=== PATIENT | female | born 1955 | race African-American/Black ===

== ENCOUNTER 2016-12-30 08:51 | Emergency (ER) | payer OTHER ==
[2016-12-30 09:00] VITALS: BP 138/93; BMI 41.1
--- NOTE | 2016-12-30 09:53 | DR.GENAD ---
HPI - PCP Primary Care Physician: GINETTE - HPI Comment HPI Comment: WORSE TODAY. NO DYSURIA OR FEVER. DENIES TRAUMA. - Complaint/Symptoms Chief Complaint Doctors Comments: LEFT FLANK AND LOWER BACK ON LEFT SIDE PAIN FOR 3 DAYS. Chief Complaint:: "MY BACK HURTS" Self Treatment fo Chief Complaint: GOODY POWDER - Nurses notes reviewed Nurses Notes Review: Yes - Source History Provided: Patient - Mode of Arrival Mode of Arrival: Ambulatory - Timing Onset of Chief Complaint: 12/27/16 Came on: Suddenly - Duration Duration: Constant Duration: Days - Severity Severity: Moderate PMH - PMH Past Medical History: Yes Past Medical History: Coronary Artery Disease, Diabetes, Hypertension Past Surgical History: Yes Surgical History: Angioplasty/Stents, - Family History History of Family Medical Conditions: Yes Family Medical History: Diabetes Mellitus, Coronary Artery Disease, Heart Failure, Hypertension - Social History Does patient currently use any type of tobacco product: No Have you used tobacco products in the last 12 months: No Type of Tobacco Use: None Does any household member use tobacco: No Alcohol Use: None Do you use any recreational Drugs:: No Lives With: Family Lives Where: Home - infectious screening In the last 2 months have you had wt loss of >10#?: NO Have you had fever, night sweats or hemotysis?: No Have you traveled outside the country in the last 6 months?: No ROS - Review of Systems Constitutional: No Symptoms Reported Eyes: No Symptoms Reported ENTM: No Symptoms Reported Respiratoy: No Symptoms Reported Cardiovascular: No Symptoms Reported Gastrointestinal/Abdominal: No Symptoms Reported Genitourinary: No Symptoms Reported Neurological: No Symptoms Reported Musculoskeletal: Back Pain, Back Integumentary: No Symptoms Reported Hematologic/Lymphatic: No Symptoms Reported Endocrine: No Symptoms Reported All Other Systems: Reviewed and Negative PE - Vital Signs Vitals: Temperature 97.7 F Pulse Rate 86 Respiratory Rate 20 Blood Pressure [Right Arm] 130/79 Blood Pressure [Left Arm] 134/63 Blood Pressure 138/93 O2 Sat by Pulse Oximetry 97 - General Limitations: No Limitations General Appearance: Alert - Head Head Exam: Normal Inspection - Eyes Eye exam: Normal Appearance - ENT ENT Exam: Normal External Ear Exam External Ear Exam: Normal External Inspection TM/Canal Exam: Bilateral Normal Nose Exam: Normal Nose Exam Mouth Exam: Normal Inspection Throat Exam: Normal Inspection - Neck Neck Exam: Trachea Midline - Chest Chest Inspection: Symmetric Chest Wall Rise - Respiratory Respiratory Exam: Normal Lung Sounds Bilat Respiratory Exam: Bilateral Clear to Auscultation - Cardiovascular Cardiovascular Exam: Regular Rate, Normal Rhythm, Normal Heart Sounds - Abdominal Exam Abdominal Exam: Normal Bowel Sounds, Soft. negative: Tenderness - Extremities Extremities Exam: Normal Inspection - Back Back Exam: (L) CVA Tenderness, Paraspinal Tenderness (LT SIDE OF LOWER BACK) - Neurologic Neurological Exam: Alert, Oriented X3 - Psychiatric Psychiatric Exam: Normal Affect, Normal Mood - Skin Skin Exam: Normal Color MDM - Differential Diagnosis Differential Diagnosis: LEFT FLANK PAIN, UTI, KIDNEY STONE Course - Treatment Treatment: SEE ORDERS. - Education/Counseling Education/Counseling: Patient, Education Educated On: Treatment, Diagnosis, Needs for Follow Up ROR - Labs Reviewed Laboratory Results Reviewed?: Yes Result Diagrams: 12/30/16 09:58 12/30/16 09:58 Laboratory: WBC 4.3 X10^3/uL (3.6-10.0) 12/30/16 09:58 RBC 4.78 X10^6/uL (3.5-5.4) 12/30/16 09:58 Hgb 12.7 g/dL (12.0-16.0) 12/30/16 09:58 Hct 38.5 % (36.0-47.0) 12/30/16 09:58 MCV 80.6 fL (80.0-100.0) 12/30/16 09:58 MCH 26.5 pg (27.0-34.0) L 12/30/16 09:58 MCHC 32.8 g/dL (33.0-35.0) L 12/30/16 09:58 RDW 14.7 % (11.6-16.5) 12/30/16 09:58 Plt Count 166 X10^3/uL (150.0-450.0) 12/30/16 09:58 MPV 9.7 fL (7.4-11.0) 12/30/16 09:58 Neut % 48.3 % (42.0-75.0) 12/30/16 09:58 Lymph % 42.1 % (21.0-51.0) 12/30/16 09:58 [place] % 7.8 % (0.0-13.0) 12/30/16 09:58 Eos % 1.1 % (0.9-2.9) 12/30/16 09:58 Baso % 0.7 % (0.2-1.0) 12/30/16 09:58 Neut # 2.1 x10^3/uL (2.2-4.8) L 12/30/16 09:58 Lymph # 1.8 X10^3/uL (1.3-2.9) 12/30/16 09:58 [place] # 0.3 x10^3/uL (0.3-0.8) 12/30/16 09:58 Eos # 0.0 x10^3/uL (0.0-0.2) 12/30/16 09:58 Baso # 0.0 X10^3/uL (0.0-0.1) 12/30/16 09:58 Absolute Nucleated RBC 0.2 /100WBC 12/30/16 09:58 Sodium 137 mmol/L (136-145) 12/30/16 09:58 Corrected Sodium 139 mmol/L (136-145) 12/30/16 09:58 Potassium 4.4 mmol/L (3.5-5.1) 12/30/16 09:58 Chloride 103 mmol/L (98-107) 12/30/16 09:58 Carbon Dioxide 28.1 mmol/L (21-32) 12/30/16 09:58 BUN 19 mg/dL (7-18) H 12/30/16 09:58 Creatinine 1.41 mg/dL (0.55-1.02) H 12/30/16 09:58 Est GFR (MDRD) Af Amer 49 (>60) L 12/30/16 09:58 Est GFR (MDRD) Non-Af 41 (>60) L 12/30/16 09:58 Glucose 180 mg/dL (65-99) H 12/30/16 09:58 Calcium 9.9 mg/dL (8.5-10.1) 12/30/16 09:58 Corrected Calcium TNP 12/30/16 09:58 Total Bilirubin 0.50 mg/dL (0.2-1.0) 12/30/16 09:58 AST 14 Units/L (15-37) L 12/30/16 09:58 ALT 21 Units/L (12-78) 12/30/16 09:58 Alkaline Phosphatase 48 Units/L (46-116) 12/30/16 09:58 Total Protein 8.2 g/dL (6.4-8.2) 12/30/16 09:58 Albumin 3.7 g/dL (3.4-5.0) 12/30/16 09:58 Globulin 4.5 g/dL (2.5-4.5) 12/30/16 09:58 Albumin/Globulin Ratio 0.8 Ratio (1.1-2.1) L 12/30/16 09:58 Specimen Type Clean catch urine 12/30/16 11:00 Urine Color Yellow (YELLOW) 12/30/16 11:00 Urine Appearance Hazy (CLEAR) 12/30/16 11:00 Urine pH 5.0 (5.0 - 8.0) 12/30/16 11:00 Ur Specific [place] 1.020 (1.000-1.030) 12/30/16 11:00 Urine Protein 1+ (NEGATIVE) 12/30/16 11:00 Urine Glucose (UA) Negative (NEGATIVE) 12/30/16 11:00 Urine Ketones Negative (NEGATIVE) 12/30/16 11:00 Urine Occult Blood 1+ (NEGATIVE) 12/30/16 11:00 Urine Nitrite Negative (NEGATIVE) 12/30/16 11:00 Urine Bilirubin Negative (NEGATIVE) 12/30/16 11:00 Urine Urobilinogen Normal (NORMAL) 12/30/16 11:00 Ur Leukocyte Esterase 2+ (NEGATIVE) 12/30/16 11:00 Urine RBC 0-3 /HPF (NEGATIVE) 12/30/16 11:00 Urine WBC 4-8 /HPF (NEGATIVE) 12/30/16 11:00 Ur Squamous Epith Cells Numerous /HPF (NEGATIVE) 12/30/16 11:00 Urine Bacteria Trace /HPF (NEGATIVE) 12/30/16 11:00 Hyaline Casts Many /LPF (NEGATIVE) 12/30/16 11:00 Ur Culture Indicated? No/not indicated 12/30/16 11:00 - XRAY XRAY Interpreted by: Radiologist XRAY Findings: REPORT DISCUSS WITH PATIENT. - Diagnosis Discharge Problem: Left flank pain, Kidney stones - Discharge Plan Disposition: 01 HOME, SELF-CARE Condition: Good Prescriptions: Cyclobenzaprine HCl [FLEXERIL 10 MG *] 10 mg PO TID 15 Days #60 tab Ibuprofen [MOTRIN TAB 600 MG *] 600 mg PO BID PRN 10 Days #60 tab PRN Reason: Pain/Inflammation - Follow ups/Referrals Follow ups/Referrals: NFD,None [Primary Care Provider] - 3 days - Instructions Instructions: Kidney Stones, [id number], Flank Pain, [id number] Additional Instructions: RETURN TO ED IF WORSE.
[2016-12-30 10:10] LABS: BASOPHILS % (AUTO) 0.7 % (0.2-1.0); EOSINOPHILS % (AUTO) 1.1 % (0.9-2.9); HEMATOCRIT 38.5 % (36.0-47.0); HEMOGLOBIN 12.7 g/dL (12.0-16.0); LYMPHOCYTES # (AUTO) 1.8 X10^3/uL (1.3-2.9); LYMPHOCYTES % (AUTO) 42.1 % (21.0-51.0); MEAN CORPUSCULAR HEMOGLOBIN 26.5 pg (27.0-34.0); MEAN CORPUSCULAR HGB CONC 32.8 g/dL (33.0-35.0); MEAN CORPUSCULAR VOLUME 80.6 fL (80.0-100.0); MEAN PLATELET VOLUME 9.7 fL (7.4-11.0); MONOCYTES # (AUTO) 0.3 x10^3/uL (0.3-0.8); MONOCYTES % (AUTO) 7.8 % (0.0-13.0); NEUTROPHILS # (AUTO) 2.1 x10^3/uL (2.2-4.8); NEUTROPHILS % (AUTO) 48.3 % (42.0-75.0); PLATELET COUNT 166 X10^3/uL (150.0-450.0); RED BLOOD COUNT 4.78 X10^6/uL (3.5-5.4); RED CELL DISTRIBUTION WIDTH 14.7 % (11.6-16.5); WHITE BLOOD COUNT 4.3 X10^3/uL (3.6-10.0)
[2016-12-30 10:18] LABS: ALANINE AMINOTRANSFERASE 21 Units/L (12-78); ALBUMIN 3.7 g/dL (3.4-5.0); ALKALINE PHOSPHATASE 48 Units/L (46-116); ASPARTATE AMINO TRANSFERASE 14 Units/L (15-37); BLOOD UREA NITROGEN 19 mg/dL (7-18); CALCIUM 9.9 mg/dL (8.5-10.1); CARBON DIOXIDE 28.1 mmol/L (21-32); CHLORIDE 103 mmol/L (98-107); COR NA(FOR HYPERGLY) 139 mmol/L (136-145); CREATININE 1.41 mg/dL (0.55-1.02); SODIUM 137 mmol/L (136-145); TOTAL PROTEIN 8.2 g/dL (6.4-8.2); eGFR BLACK RACES 49 (>60); eGFR NON BLACK RACES 41 (>60)
--- NOTE | 2016-12-30 10:52 | CT ---
HISTORY: Left flank pain for 3 days Study: CT abdomen and pelvis without contrast Comparison: None Technique: Multiple axial images of the abdomen and pelvis were obtained from the lung bases to the pubic symphy sis without the administration of IV contrast. Sagittal and coronal reformations were provided. Findings: The visualized portions of the lung bases are unremarkable. There are multiple bilateral small renal calculi. There is no hydronephrosis or renal mass. The liver and spleen and pancreas and adrenal gla nds are unremarkable.. The gallbladder is unremarkable in its CT appearance. No significant mesenter ic lymphadenopathy or stranding can be observed. No free fluid or free air is seen within the abdome n. The appendix is normal. The uterus is normal in size without mass. There is no adnexal mass. No b owel wall thickening or bowel dilatation is present. The colon is unremarkable. Specifically, there is no diverticulosis noted within the sigmoid colon. The urinary bladder is grossly unremarkable. T he bony structures are grossly intact. IMPRESSION: 1. Multiple bilateral small renal calculi without hydronephrosis. No definite acute disease demonstr ated. Reported By:
[2016-12-30 11:08] LABS: BILIRUBIN,URINE NEGATIVE (NEGATIVE); BLOOD/HEMOGLOBIN,URINE 1+ (NEGATIVE); GLUCOSE, URINE NEGATIVE (NEGATIVE); KETONES,URINE NEGATIVE (NEGATIVE); LEUKOCYTE ESTERASE ,URINE 2+ (NEGATIVE); NITRITES,URINE NEGATIVE (NEGATIVE); PROTEIN,URINE 1+ (NEGATIVE); UROBILINOGEN,URINE NORMAL (NORMAL)
[2016-12-30 11:22] LABS: APPEARANCE,URINE HAZY (CLEAR); BACTERIA,URINE TRACE /HPF (NEGATIVE); COLOR,URINE YELLOW (YELLOW); HYALINE CASTS, URINE MANY /LPF (NEGATIVE); RBC,URINE 0-3 /HPF (NEGATIVE); SQUAMOUS EPITHELIAL CELL,UR NUMEROUS /HPF (NEGATIVE)
== END 2016-12-30 11:25 | disposition home or self-care (01) ==
LOC: ER 09:09
DX: N20.0 Calculus of kidney (principal); R10.84 Generalized abdominal pain
CPT/HCPCS: 36415; 74176; 80053; 81001; 85025; 99283

== ENCOUNTER 2017-08-08 12:19 | Observation (INO) | payer OTHER ==
[2017-08-08] MEDS ORDERED: DUONEB 0.5 MG/3 MG NEB ONE ×2 (13:54→18:00)
[2017-08-08] MEDS ORDERED: LASIX IVP STA (13:55)
[2017-08-08] MEDS ORDERED: LASIX ONE (13:59)
--- NOTE | 2017-08-08 13:59 | DR.GENAD ---
HPI - PCP Primary Care Physician: nfd - Complaint/Symptoms Chief Complaint Doctors Comments: Patient is complaining of fullness in her chest like "pressure" for the ast four days getting progressively worst. States she went to [place] yesterday and had episode hot cold spells with cough and SOB with problems breathing and thought she was going to pass out when she was taking a shower. she denies tobacco use but states she stopped drinking about a month ag. States she has had cardiac stents about 5-6 years ago and had penumonia Feb 2017. States she has had episode wheezing but denies any chest trauma. states she has been having swelling of her legs and is taking lasix 20mg twice daily. Chief Complaint:: "chest congestion for a week now, not able to cough anything up" - Nurses notes reviewed Nurses Notes Review: Yes - Source History Provided: Patient - Mode of Arrival Mode of Arrival: Ambulatory - Timing Onset of Chief Complaint: 08/01/17 Came on: Gradually - Duration Duration: Constant How lon Duration: Days - Location Location: xiphoid pressure - Severity Severity: Moderate - Modifying Factors Worsens:: nothing Improves:: nothing PMH - PMH Past Medical History: Yes Past Medical History: Coronary Artery Disease, Diabetes, Hypertension Past Surgical History: Yes Surgical History: Angioplasty/Stents, - Family History History of Family Medical Conditions: Yes Family Medical History: Diabetes Mellitus, Coronary Artery Disease, Heart Failure, Hypertension - Social History Does patient currently use any type of tobacco product: No Have you used tobacco products in the last 12 months: No Type of Tobacco Use: None Does any household member use tobacco: No Alcohol Use: None Do you use any recreational Drugs:: No Lives With: Family Lives Where: Home - infectious screening In the last 2 months have you had wt loss of >10#?: NO Have you had fever, night sweats or hemotysis?: No Have you traveled outside the country in the last 6 months?: No Isolation: Standard ROS - Review of Systems Constitutional: No Symptoms Reported. negative: See HPI, Chills, Diaphoresis, Fever, Malaise, Weakness, Irritable, Fatigue, Loss of Appetite, Other Eyes: No Symptoms Reported. negative: See HPI, Eye Pain, Blurred Vision, Tearing, Discharge, Photophobia, Diplopia, Other ENTM: No Symptoms Reported. negative: See HPI, Ear Pain, Ear Discharge, Pulling on Ears, Hearing Loss, Nose Pain, Nose Discharge, Epistaxis, Nose Congestion, Mouth Pain, Mouth Swelling, Loose Teeth, Drooling, Throat Pain, Throat Swelling, Ear Foreign Body Respiratoy: No Symptoms Reported, Non-Productive Cough, Short of Breath, Wheezing. negative: See HPI, Productive Cough, Moist Cough, Dry Cough, Hacking Cough, Barking Cough, Brassy Cough, Orthopnea, Stridor, Hemoptysis, Other Cardiovascular: No Symptoms Reported, Chest Pain, Edema. negative: See HPI, Palpitations, Syncope, Cyanosis, Skin Mottling, Other Gastrointestinal/Abdominal: No Symptoms Reported. negative: See HPI, Abdominal Pain, Constipation, Diarrhea, Nausea, Vomiting, Food Intolerance, Other Genitourinary: No Symptoms Reported Neurological: No Symptoms Reported Musculoskeletal: No Symptoms Reported Integumentary: No Symptoms Reported Hematologic/Lymphatic: No Symptoms Reported Endocrine: No Symptoms Reported Psychiatric: No Symptoms Reported PE - Vital Signs Vitals: Temperature 97.7 F Pulse Rate 90 Respiratory Rate 18 Blood Pressure [Right Arm] 130/79 Blood Pressure [Left Arm] 134/63 Blood Pressure 148/90 O2 Sat by Pulse Oximetry 98 - General Limitations: No Limitations General Appearance: Alert, In Distress (moderate), Obese - Head Head Exam: Normal Inspection, Atraumatic, Normocephalic - Eyes Eye exam: Normal Appearance, PERRL, EOMI. negative: Scleral Icterus, Conjunctival Injection, Nystagmus, Miosis, Mydrasis, Periorbital Swelling, Periorbital Tenderness, Other - ENT ENT Exam: Normal Exam, Normal Oropharynx, Normal External Ear Exam, Mucous Membranes Moist, TM's Normal Bilaterally External Ear Exam: Normal External Inspection TM/Canal Exam: Bilateral Normal Nose Exam: Normal Nose Exam Mouth Exam: Normal Inspection Throat Exam: Normal Inspection. negative: Tonsillar Erythema, Tonsillomegaly, Tonsillar Exudate, R Peritonsillar Mass, L Peritonsillar Mass, Muffled Voice, Other - Neck Neck Exam: Normal Inspection, Full ROM, Trachea Midline. negative: Tenderness, Meningismus, Lymphadenopathy, Thyromegaly, Other - Chest Chest Inspection: Normal Inspection, Symmetric Chest Wall Rise - Respiratory Respiratory Exam: Normal Lung Sounds Bilat Respiratory Exam: Bilateral Wheezing, Bilateral Rhonchi, Bilateral Decreased Breath Sounds, Left Rales - Cardiovascular Cardiovascular Exam: Regular Rate, Normal Rhythm, Normal Heart Sounds, Systolic Murmur - Abdominal Exam Abdominal Exam: Normal Inspection, Normal Bowel Sounds, Soft. negative: Distention, Tenderness, Guarding, Rebound, Rigidity, Dimnished Bowel Sounds, Hyperactive Bowel Sounds, Hypoactive Bowel Sounds, Organomegaly, Trauma, Incision, Ascites, Mass, Bruit, Pulsatile Mass, Hernia, Other Abdominal Tenderness: negative: RUQ, RLQ, LUQ, LLQ, Epigastrium, Suprapubic, Diffuse, Mild, Moderate, Severe, Other - Extremities Extremities Exam: Normal Inspection, Full ROM, Normal Capillary Refill, Edema. negative: Tenderness, Joint Swelling, Calf Tenderness, Other - Back Back Exam: Normal Inspection, Full ROM. negative: Tenderness, (R) CVA Tenderness, (L) CVA Tenderness, Muscle Spasm, Paraspinal Tenderness, Vertebral Tenderness, Rashes, (R) Sciatic Notch Tenderness, (L) Sciatic Notch Tendern, (R ) Straight Leg Raise, (L) Straight Leg Raise, Other - Neurologic Neurological Exam: Alert, Oriented X3, CN II-XII Intact, Reflexes Normal. negative: Normal Gait (gait not tested) - Psychiatric Psychiatric Exam: Normal Affect, Normal Mood. negative: Depressed, Agitated, Anxious, Flat Affect, Manic, Homicidal Ideation, Suicidal Ideation, Other - Skin Skin Exam: Warm, Dry, Intact, Normal Color Course - Reevaluation 1st: Improved - Consultation Called: 16:02 Call Returned: 16:02 (Dr. Walter to admit) - Education/Counseling Education/Counseling: Patient, Family Educated On: Treatment, Diagnosis, Needs for Follow Up ROR - Labs Reviewed Laboratory Results Reviewed?: Yes (all labs and x-ray results reviewed and discussed with patient) Result Diagrams: 08/08/17 14:05 08/08/17 14:05 Laboratory: WBC 4.3 X10^3/uL (3.6-10.0) 08/08/17 14:05 RBC 4.82 X10^6/uL (3.5-5.4) 08/08/17 14:05 Hgb 12.3 g/dL (12.0-16.0) 08/08/17 14:05 Hct 37.9 % (36.0-47.0) 08/08/17 14:05 MCV 78.6 fL (80.0-100.0) L 08/08/17 14:05 MCH 25.6 pg (27.0-34.0) L 08/08/17 14:05 MCHC 32.6 g/dL (33.0-35.0) L 08/08/17 14:05 RDW 15.0 % (11.6-16.5) 08/08/17 14:05 Plt Count 159 X10^3/uL (150.0-450.0) 08/08/17 14:05 Plt Count Comment Adequate (ADEQUATE) 08/08/17 14:05 MPV 10.6 fL (7.4-11.0) 08/08/17 14:05 Neut % (Auto) 50.5 % (42.0-75.0) 08/08/17 14:05 Lymph % (Auto) 40.8 % (21.0-51.0) 08/08/17 14:05 [place] % (Auto) 7.2 % (0.0-13.0) 08/08/17 14:05 Eos % (Auto) 1.0 % (0.9-2.9) 08/08/17 14:05 Baso % (Auto) 0.5 % (0.2-1.0) 08/08/17 14:05 Neut # (Auto) 2.2 x10^3/uL (2.2-4.8) 08/08/17 14:05 Lymph # (Auto) 1.8 X10^3/uL (1.3-2.9) 08/08/17 14:05 [place] # (Auto) 0.3 x10^3/uL (0.3-0.8) 08/08/17 14:05 Eos # (Auto) 0.0 x10^3/uL (0.0-0.2) 08/08/17 14:05 Baso # (Auto) 0.0 X10^3/uL (0.0-0.1) 08/08/17 14:05 Absolute Nucleated RBC 0.0 /100WBC 08/08/17 14:05 Plt Morphology Comment Normal (NORMAL) 08/08/17 14:05 RBC Morphology Abnormal (NORMAL) A 08/08/17 14:05 Hypochromasia Slight A 08/08/17 14:05 Microcytosis Slight A 08/08/17 14:05 INR Target Range - 08/08/17 14:05 INR 1.03 (0.8-1.3) 08/08/17 14:05 APTT 27.4 SECONDS (22.9-36.5) 08/08/17 14:05 PTT Comment - 08/08/17 14:05 D-Dimer 396 ng/mL (0-400) 08/08/17 14:05 Sodium 139 mmol/L (136-145) 08/08/17 14:05 Corrected Sodium 140 mmol/L (136-145) 08/08/17 14:05 Potassium 4.5 mmol/L (3.5-5.1) 08/08/17 14:05 Chloride 103 mmol/L (98-107) 08/08/17 14:05 Carbon Dioxide 25.6 mmol/L (21-32) 08/08/17 14:05 BUN 19 mg/dL (7-18) H 08/08/17 14:05 Creatinine 1.14 mg/dL (0.55-1.02) H 08/08/17 14:05 Est GFR (MDRD) Af Amer > 60 (>60) 08/08/17 14:05 Est GFR (MDRD) Non-Af 52 (>60) L 08/08/17 14:05 Glucose 162 mg/dL (65-99) H 08/08/17 14:05 Calcium 9.0 mg/dL (8.5-10.1) 08/08/17 14:05 Corrected Calcium TNP 08/08/17 14:05 Magnesium 2.1 mg/dL (1.7-2.9) 08/08/17 14:05 Total Bilirubin 1.00 mg/dL (0.2-1.0) 08/08/17 14:05 AST 22 Units/L (15-37) 08/08/17 14:05 ALT 36 Units/L (12-78) 08/08/17 14:05 Alkaline Phosphatase 58 Units/L (46-116) 08/08/17 14:05 Creatine Kinase 36 Units/L (26-192) 08/08/17 14:05 CK-MB (CK-2) < 1.0 ng/mL (0-4.0) 08/08/17 14:05 CK/CKMB % Calc 2.8 % (<4) 08/08/17 14:05 Troponin I < 0.02 ng/mL (0-1.5) 08/08/17 14:05 B-Natriuretic Peptide 496 pg/mL (0-79) H 08/08/17 14:05 Total Protein 8.4 g/dL (6.4-8.2) H 08/08/17 14:05 Albumin 3.9 g/dL (3.4-5.0) 08/08/17 14:05 Globulin 4.5 g/dL (2.5-4.5) 08/08/17 14:05 Albumin/Globulin Ratio 0.9 Ratio (1.1-2.1) L 08/08/17 14:05 Specimen Type Random urine 08/08/17 15:26 Urine Color Yellow (YELLOW) 08/08/17 15:26 Urine Appearance Clear (CLEAR) 08/08/17 15:26 Urine pH 6.0 (5.0 - 8.0) 08/08/17 15:26 Ur Specific [place] 1.010 (1.000-1.030) 08/08/17 15:26 Urine Protein Negative (NEGATIVE) 08/08/17 15:26 Urine Glucose (UA) Negative (NEGATIVE) 08/08/17 15:26 Urine Ketones Negative (NEGATIVE) 08/08/17 15:26 Urine Occult Blood Negative (NEGATIVE) 08/08/17 15:26 Urine Nitrite Negative (NEGATIVE) 08/08/17 15:26 Urine Bilirubin Negative (NEGATIVE) 08/08/17 15:26 Urine Urobilinogen Normal (NORMAL) 08/08/17 15:26 Ur Leukocyte Esterase Negative (NEGATIVE) 08/08/17 15:26 - XRAY XRAY Interpreted by: Radiologist (CXR: Massive cardiomegaly with moderate pulmonary edema and trace bilateral effusions) - EKG Rate: 99 [place]: Normal Rhythm: NSR Block: None Hypertrophy: None ST: Normal, Nonsp - Diagnosis Discharge Problem: Chest pain, rule out acute myocardial infarction, Congestive heart failure, Cardiomegaly, Hyperglycemia, Diabetes mellitus - Discharge Plan Disposition: ADMITTED INPATIENT Condition: Stable - Follow ups/Referrals Follow ups/Referrals: NFD,None [Primary Care Provider] - 3 days - Instructions
[2017-08-08 14:15] LABS: BASOPHILS % (AUTO) 0.5 % (0.2-1.0); HEMATOCRIT 37.9 % (36.0-47.0); HEMOGLOBIN 12.3 g/dL (12.0-16.0); LYMPHOCYTES # (AUTO) 1.8 X10^3/uL (1.3-2.9); LYMPHOCYTES % (AUTO) 40.8 % (21.0-51.0); MEAN CORPUSCULAR HEMOGLOBIN 25.6 pg (27.0-34.0); MEAN CORPUSCULAR HGB CONC 32.6 g/dL (33.0-35.0); MEAN CORPUSCULAR VOLUME 78.6 fL (80.0-100.0); MEAN PLATELET VOLUME 10.6 fL (7.4-11.0); MONOCYTES # (AUTO) 0.3 x10^3/uL (0.3-0.8); MONOCYTES % (AUTO) 7.2 % (0.0-13.0); NEUTROPHILS # (AUTO) 2.2 x10^3/uL (2.2-4.8); NEUTROPHILS % (AUTO) 50.5 % (42.0-75.0); PLATELET COUNT 159 X10^3/uL (150.0-450.0); RED BLOOD COUNT 4.82 X10^6/uL (3.5-5.4); WHITE BLOOD COUNT 4.3 X10^3/uL (3.6-10.0)
[2017-08-08 14:22] LABS: HYPOCHROMASIA SLIGHT; PLATELET MORPHOLOGY COMMENT NORMAL (NORMAL)
[2017-08-08 14:23] LABS: MICROCYTOSIS SLIGHT
--- NOTE | 2017-08-08 14:32 | RAD ---
HISTORY: 62-year-old female with chest pressure for 4 days. Study: Frontal view of the chest. Comparison: Chest radiographs 11/18/2016 Findings: The trachea is midline. The cardiac silhouette is massively enlarged and stable with moderate pulmon attila edema and trace effusions without pneumothorax. Soft tissues are unremarkable. Osseous structur es are unremarkable. IMPRESSION: 1. Massive cardiomegaly with moderate pulmonary edema and trace bilateral effusions. Reported By:
[2017-08-08 14:33] LABS: BLOOD UREA NITROGEN 19 mg/dL (7-18); CARBON DIOXIDE 25.6 mmol/L (21-32); CHLORIDE 103 mmol/L (98-107); COR NA(FOR HYPERGLY) 140 mmol/L (136-145); CREATININE 1.14 mg/dL (0.55-1.02); SODIUM 139 mmol/L (136-145); TROPONIN I < 0.02 ng/mL (0-1.5); eGFR BLACK RACES > 60 (>60); eGFR NON BLACK RACES 52 (>60)
[2017-08-08 14:37] LABS: ALANINE AMINOTRANSFERASE 36 Units/L (12-78); ALBUMIN 3.9 g/dL (3.4-5.0); ALKALINE PHOSPHATASE 58 Units/L (46-116); ASPARTATE AMINO TRANSFERASE 22 Units/L (15-37); CREATINE KINASE 36 Units/L (26-192); CREATINE KINASE MB < 1.0 ng/mL (0-4.0); MAGNESIUM 2.1 mg/dL (1.7-2.9); TOTAL PROTEIN 8.4 g/dL (6.4-8.2)
[2017-08-08 14:39] LABS: CKMB % 2.8 % (<4)
[2017-08-08 14:49] LABS: B-TYPE NATRIURETIC PEPTIDE 496 pg/mL (0-79)
[2017-08-08 15:33] LABS: BILIRUBIN,URINE NEGATIVE (NEGATIVE); BLOOD/HEMOGLOBIN,URINE NEGATIVE (NEGATIVE); GLUCOSE, URINE NEGATIVE (NEGATIVE); KETONES,URINE NEGATIVE (NEGATIVE); LEUKOCYTE ESTERASE ,URINE NEGATIVE (NEGATIVE); NITRITES,URINE NEGATIVE (NEGATIVE); PROTEIN,URINE NEGATIVE (NEGATIVE); UROBILINOGEN,URINE NORMAL (NORMAL)
[2017-08-08 15:35] LABS: APPEARANCE,URINE CLEAR (CLEAR); COLOR,URINE YELLOW (YELLOW)
[2017-08-08 17:58] VITALS: BMI 39.6
[2017-08-08] MEDS: HumuLIN R SC PRN (21:30)
[2017-08-08 23:15] LABS: CKMB % 2.9 % (<4); CREATINE KINASE 35 Units/L (26-192); CREATINE KINASE MB < 1.0 ng/mL (0-4.0); TROPONIN I < 0.02 ng/mL (0-1.5)
[2017-08-09 05:02] LABS: BASOPHILS # (AUTO) 0.1 X10^3/uL (0.0-0.1); BASOPHILS % (AUTO) 1.5 % (0.2-1.0); EOSINOPHILS # (AUTO) 0.1 x10^3/uL (0.0-0.2); EOSINOPHILS % (AUTO) 1.5 % (0.9-2.9); HEMATOCRIT 34.5 % (36.0-47.0); HEMOGLOBIN 11.1 g/dL (12.0-16.0); LYMPHOCYTES # (AUTO) 1.8 X10^3/uL (1.3-2.9); LYMPHOCYTES % (AUTO) 45.3 % (21.0-51.0); MEAN CORPUSCULAR HEMOGLOBIN 25.3 pg (27.0-34.0); MEAN CORPUSCULAR HGB CONC 32.3 g/dL (33.0-35.0); MEAN CORPUSCULAR VOLUME 78.5 fL (80.0-100.0); MEAN PLATELET VOLUME 10.3 fL (7.4-11.0); MONOCYTES # (AUTO) 0.3 x10^3/uL (0.3-0.8); MONOCYTES % (AUTO) 8.4 % (0.0-13.0); NEUTROPHILS # (AUTO) 1.8 x10^3/uL (2.2-4.8); NEUTROPHILS % (AUTO) 43.3 % (42.0-75.0); PLATELET COUNT 125 X10^3/uL (150.0-450.0); RED BLOOD COUNT 4.39 X10^6/uL (3.5-5.4); RED CELL DISTRIBUTION WIDTH 15.2 % (11.6-16.5)
[2017-08-09 05:10] LABS: ALANINE AMINOTRANSFERASE 29 Units/L (12-78); ALBUMIN 3.4 g/dL (3.4-5.0); ALKALINE PHOSPHATASE 48 Units/L (46-116); ASPARTATE AMINO TRANSFERASE 17 Units/L (15-37); BLOOD UREA NITROGEN 21 mg/dL (7-18); CARBON DIOXIDE 27.7 mmol/L (21-32); CHLORIDE 105 mmol/L (98-107); COR NA(FOR HYPERGLY) 142 mmol/L (136-145); CREATININE 1.25 mg/dL (0.55-1.02); SODIUM 141 mmol/L (136-145); TOTAL PROTEIN 7.3 g/dL (6.4-8.2); eGFR BLACK RACES 56 (>60); eGFR NON BLACK RACES 46 (>60)
[2017-08-09 05:11] LABS: CHOL/HDL RATIO 8.6 (0.0-5.0); CHOLESTEROL 240 mg/dL (0-200); CKMB % 3.2 % (<4); CREATINE KINASE 31 Units/L (26-192); CREATINE KINASE MB < 1.0 ng/mL (0-4.0); HDL CHOLESTEROL 28 mg/dL (40-60); TRIGLYCERIDES 160 mg/dL (0-150); TROPONIN I 0.02 ng/mL (0-1.5)
[2017-08-09 05:29] LABS: PLATELET MORPHOLOGY COMMENT NORMAL (NORMAL)
[2017-08-09 05:31] LABS: HYPOCHROMASIA SLIGHT; MICROCYTOSIS SLIGHT
--- NOTE | 2017-08-09 08:44 | RAD ---
Examination: Portable AP chest History: SOB Comparison 08/08/2017 Findings: Continued cardiomegaly with persistent but improving pulmonary vascular distention and inte rstitial edema. There is no evidence for complicating pneumothorax. Impression: Interval improvement in CHF with residual cardiomegaly and pulmonary vascular distention. Reported By:
[2017-08-09] MEDS: LOVENOX INJ 40 MG SYR SC SCH (09:44)
[2017-08-09] MEDS: LASIX IVP SCH ×2 (12:00→20:31)
[2017-08-09] MEDS ORDERED: PATIENT'S HOME MEDICATION (Potassium Chloride [Klor-Con 10] 10 MEQ) PO SCH (21:00)
[2017-08-09] MEDS: MICRO K EXTEN CAP 10 MEQ PO SCH (21:16)
[2017-08-09] MEDS: LIPITOR TAB 40 MG PO SCH (21:16)
[2017-08-09] MEDS: ASPIRIN EC 81 MG PO SCH (21:16)
[2017-08-09] MEDS: COREG TAB 6.25 MG PO SCH (21:16)
[2017-08-09] MEDS ORDERED: BENADRYL INJ 50 MG VIAL IVP ONE (21:52)
--- NOTE | 2017-08-10 00:03 | DR.H&P ---
H&P - History & Physical for Day of: H&P Date: 08/08/17 - Chief Complaint Chief Complaint: CONGESTION, SHORT OF BREATH - Allergies Allergies/Adverse Reactions: Allergies Allergy/AdvReac Type Severity Reaction Status Date / Time No Known Drug Allergies Allergy Unverified 11/18/16 16:49 - History of Present Illness History of Present Illness: IS A 62 YEAR OLD BLACK FEMALE WHO PRESENTED TO THE EMERGENCY DEPARTMENT WITH COMPLAINTS OF CHEST CONGESTION AND SHORNTESS OF BREATH. PATIENT REPORTS THAT SYMPTOMS HAVE PROGRESSIVELY WORSENED OVER THE PAST FOUR DAYS. COUGH IS NON-PRODUCTIVE, SHE DENIES TOBACCO USAGE, BUT REPORTS THAT SHE RECENTLY STOPPED DRINKING ABOUT A MONTH AGO. SHE ADMITS TO CARDIAC STENTS APPROXIMATELY 5-6 YEARS AGO. PATIENT ALSO REPORTS SWELLING TO BILATERAL LOWER EXTREMITIES. MEDICAL HISTORY INCLUDES CAD, CHF, CARDIOMYOPATHY, SC, ANGINA, HYPERLIPIDEMIA, HYPERTENSION, SLEEP APNEA, DIABETES, ANEMIA, STENTS , , AND CYST REMOVED FROM LEFT AXILLA. ON ARRIVAL, VITALS WERE 97.8-96- 22-93%-168/90. LABS WERE OBTAINED. ABNORMAL LAB VALUES INCLUED THE FOLLOWING: BUN 19, CREATININE 1.14, GLUCOSE 162, BNP 496, TOTAL PROTEIN 8.4. CARDIAC ENZYMES WNL. CHEST XRAY REVEALED MASSIVE CARDIOMEGALY WITH MODERATE PULMONARY EDEMA AND TRACE BILATERAL EFFUSIONS. EKG REVEALED SINUS RHYTHM WITH HR 99. SHE WAS GIVEN LASIX 20MG IV X 1 DOSE AND DUONEB X 1. SHE WAS ADMITTED FOR FURTHER EVALUATION AND TREATMENT OF CONGESTIVE HEART FAILURE AND CHEST PAIN, RULE OUT ACUTE SC. WE PLAN TO OBTAIN SERIAL CARDIAC ENZYMES AND EKGS AND START LASIX 20MG IV BID. WE WILL FOLLOW UP WITH AM LABS AND CONTINUE TO MONITOR PATIENT. - Past Medical History Past Medical History: Anemia, Angina, CHF, Coronary Artery Disease, Diabetes, Dyslipidemia, Hypertension, SC, Sleep Apnea - Past Surgical History Surgical History: Angioplasty/Stents, , Other - Family History Family Medical History: Diabetes Mellitus, SC, Coronary Artery Disease, Hypertension - Social History Does patient currently use any type of tobacco product: No Have you used tobacco products in the last 12 months: No Type of Tobacco Use: None Does any household member use tobacco: No Alcohol Use: Occasionally Drug Use: Prescription Drugs - Medications Home Medications: Aspirin EC [ASPIRIN EC 81 MG *] 81 mg PO DAILY 08/08/17 [History Confirmed 08/08] Atorvastatin Calcium [Lipitor Tab 40 mg] 40 mg PO HS 08/08/17 [History Confirmed 08/08/17] Carvedilol [Coreg Tab 6.25 mg] 6.25 mg PO BID 08/08/17 [History Confirmed ] Furosemide 20 mg PO BID 08/08/17 [History Confirmed 08/08/17] Pantoprazole Sodium 40 mg [Protonix Tab 40 mg] 40 mg PO DAILY 08/08/17 [History Confirmed 08/08/17] Potassium Chloride [Klor-Con 10] 10 meq PO BID 08/08/17 [History Confirmed 08/08] - Review of Systems Constitutional: No Symptoms Reported Eyes: No Symptoms Reported ENT: No Symptoms Reported Respiratory: See HPI, Cough, Shortness of Breath, Wheezing Cardiovascular: Chest Pain, Edema Gastrointestinal: No Symptoms Reported Genitourinary: No Symptoms Reported Musculoskeletal: No Symptoms Reported Skin: No Symptoms Reported - Physical Exam Vital Signs: Temperature 98.5 F Pulse Rate [Right Brachial] 85 Pulse Rate 90 Respiratory Rate 24 Blood Pressure [Right Arm] 120/62 Blood Pressure [Left Arm] 134/63 Blood Pressure 148/90 O2 Sat by Pulse Oximetry 95 Oriented: Normal Eyes: Normal Ear: Normal Nose: Normal Throat: Normal Respiratory: Diminished Throughout, Rhonchi Throughout, Wheezes Throughout Cardiovascular: Edema : Normal Auscultation: Bowel Sounds: Normal, Decreased (1+ BILATERAL LOWER EXTREMITY EDEMA ) Palpation: Normal Tenderness: Normal Skin: Normal Musculoskeletal: Normal Psychiatric: Normal Mood Description: Calm Affect: Normal Speech Pattern: Clear - Assessment/Plan (1) Congestive heart failure Qualifiers: Heart failure type: unspecified Heart failure chronicity: acute on chronic Qualified Code(s): I50.9 - Heart failure, unspecified Status: Acute Plan: LASIX 20MG IV BID, CONTINUE TO MONITOR (2) Chest pain, rule out acute myocardial infarction Status: Acute Plan: SERIAL CARDIAC ENZYMES AND EKG, CONTINUE TO MONITOR
[2017-08-10 05:28] LABS: BASOPHILS % (AUTO) 1.1 % (0.2-1.0); EOSINOPHILS # (AUTO) 0.1 x10^3/uL (0.0-0.2); EOSINOPHILS % (AUTO) 1.8 % (0.9-2.9); HEMATOCRIT 34.3 % (36.0-47.0); HEMOGLOBIN 11.2 g/dL (12.0-16.0); LYMPHOCYTES # (AUTO) 1.8 X10^3/uL (1.3-2.9); LYMPHOCYTES % (AUTO) 48.3 % (21.0-51.0); MEAN CORPUSCULAR HEMOGLOBIN 25.7 pg (27.0-34.0); MEAN CORPUSCULAR HGB CONC 32.7 g/dL (33.0-35.0); MEAN CORPUSCULAR VOLUME 78.5 fL (80.0-100.0); MEAN PLATELET VOLUME 10.7 fL (7.4-11.0); MONOCYTES # (AUTO) 0.4 x10^3/uL (0.3-0.8); MONOCYTES % (AUTO) 9.5 % (0.0-13.0); NEUTROPHILS # (AUTO) 1.5 x10^3/uL (2.2-4.8); NEUTROPHILS % (AUTO) 39.3 % (42.0-75.0); PLATELET COUNT 126 X10^3/uL (150.0-450.0); RED BLOOD COUNT 4.37 X10^6/uL (3.5-5.4); RED CELL DISTRIBUTION WIDTH 14.7 % (11.6-16.5); WHITE BLOOD COUNT 3.7 X10^3/uL (3.6-10.0)
[2017-08-10 05:38] LABS: ALBUMIN 3.2 g/dL (3.4-5.0); CALCIUM 8.5 mg/dL (8.5-10.1); COR CA(FOR HYPOALB) 9.1 mg/dL (8.5-10.1); CREATININE 1.19 mg/dL (0.55-1.02); TOTAL PROTEIN 7.3 g/dL (6.4-8.2)
[2017-08-10 05:53] LABS: HYPOCHROMASIA SLIGHT; PLATELET MORPHOLOGY COMMENT NORMAL (NORMAL)
[2017-08-10] MEDS: HumuLIN R SC PRN (06:26)
--- NOTE | 2017-08-10 07:22 | RAD ---
HISTORY: Shortness of breath Study: Chest AP portable Comparison: 08/09/2017, 08/08/2017 Findings: The heart remains markedly enlarged. The aorta is calcified. The gio are normal. No congestive heart failure is noted. No acute alveolar infiltrates or definite pleural effusions are identified. IMPRESSION: Marked cardiomegaly without congestive heart failure No definite infiltrates Reported By:
[2017-08-10] MEDS ORDERED: PROTONIX TAB 40 MG PO SCH (09:00)
[2017-08-10] MEDS: LOVENOX INJ 40 MG SYR SC SCH (09:03)
[2017-08-10] MEDS: LASIX IVP SCH ×2 (09:04→20:24)
[2017-08-10] MEDS: ASPIRIN EC 81 MG PO SCH (09:05)
[2017-08-10] MEDS: MICRO K EXTEN CAP 10 MEQ PO SCH ×2 (09:05→20:22)
[2017-08-10] MEDS: COREG TAB 6.25 MG PO SCH ×2 (09:05→20:22)
[2017-08-10] MEDS: LIPITOR TAB 40 MG PO SCH (20:22)
[2017-08-10 20:26] VITALS: BP 132/84
== END 2017-08-10 20:27 | disposition home or self-care (01) ==
LOC: ER 12:46 → MED/SURG 16:04
PROVIDERS: ADMIT Internal Medicine; ATTEND Internal Medicine
DX: R07.89 Other chest pain (principal); I50.9 Heart failure, unspecified; I25.10 Atherosclerotic heart disease of native coronary artery without angina pectoris; E11.65 Type 2 diabetes mellitus with hyperglycemia; I10 Essential (primary) hypertension; Z79.01 Long term (current) use of anticoagulants
CPT/HCPCS: 36415; 71045; 80053; 80061; 81003; 82550; 82553; 83735; 83880; 84484; 85025; 85378; 85610; 85730; 93005; 93010; 93306; 94640; 94760; 96365; 96374; 99284; A4216; A4222; G0378; J1200; J1650; J1815; J1940; J7620

== ENCOUNTER 2017-09-24 05:23 | Inpatient (IN) ==
--- NOTE | 2017-09-24 05:48 | DR.GENAD ---
HPI - PCP Primary Care Physician: NFD - Complaint/Symptoms Chief Complaint Doctors Comments: Patient presented with complaint of shortness of breath that has gotten worse tonight. 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 C SECTION - Family History History of Family Medical Conditions: No Family Medical History: Diabetes Mellitus, [place], Coronary Artery Disease, Hypertension - Social History Does patient currently use any type of tobacco product: No Have you used tobacco products in the last 12 months: No Type of Tobacco Use: None Does any household member use tobacco: No Alcohol Use: None Do you use any recreational Drugs:: No Lives With: Family Lives Where: Home - infectious screening In the last 2 months have you had wt loss of >10#?: NO Have you had fever, night sweats or hemotysis?: No Have you traveled outside the country in the last 6 months?: No Isolation: Standard ROS - Review of Systems Constitutional: No Symptoms Reported Eyes: No Symptoms Reported ENTM: No Symptoms Reported Respiratoy: No Symptoms Reported Cardiovascular: No Symptoms Reported Gastrointestinal/Abdominal: No Symptoms Reported Genitourinary: No Symptoms Reported Neurological: Problems Walking Musculoskeletal: No Symptoms Reported Integumentary: No Symptoms Reported Hematologic/Lymphatic: No Symptoms Reported Endocrine: No Symptoms Reported Psychiatric: No Symptoms Reported All Other Systems: Reviewed and Negative PE - Vital Signs Vitals: Temperature 96.4 F Pulse Rate [Apical] 79 Pulse Rate 94 Respiratory Rate 24 Blood Pressure [Right Arm] 161/96 Blood Pressure [Left Arm] 129/82 Blood Pressure 155/97 O2 Sat by Pulse Oximetry 98 - General Limitations: No Limitations General Appearance: Alert, In No Apparent Distress - Head Head Exam: Normal Inspection, Atraumatic - Eyes Eye exam: Normal Appearance, PERRL, EOMI - ENT ENT Exam: Normal Exam External Ear Exam: Normal External Inspection TM/Canal Exam: Bilateral Normal Nose Exam: Normal Nose Exam Mouth Exam: Normal Inspection - Neck Neck Exam: Normal Inspection, Full ROM - Chest Chest Inspection: Normal Inspection - Respiratory Respiratory Exam: Normal Lung Sounds Bilat Respiratory Exam: Bilateral Clear to Auscultation - Cardiovascular Cardiovascular Exam: Regular Rate, Normal Rhythm - Abdominal Exam Abdominal Exam: Normal Inspection, Normal Bowel Sounds Abdominal Tenderness: negative: RUQ, RLQ, LUQ, LLQ, Epigastrium, Suprapubic, Diffuse, Mild, Moderate, Severe, Other - Extremities Extremities Exam: Normal Inspection, Normal Capillary Refill - Back Back Exam: Normal Inspection, Full ROM - Neurologic Neurological Exam: Alert, Oriented X3, CN II-XII Intact - Psychiatric Psychiatric Exam: Normal Affect - Skin Skin Exam: Warm, Dry, Intact Course - Consultation Called: 06:50 (Dr Walter agreed to admit for further treatment) ROR - Labs Reviewed Result Diagrams: 09/24/17 06:03 09/24/17 06:03 Laboratory: WBC 3.7 X10^3/uL (3.6-10.0) 09/24/17 06:03 RBC 4.72 X10^6/uL (3.5-5.4) 09/24/17 06:03 Hgb 11.9 g/dL (12.0-16.0) L 09/24/17 06:03 Hct 36.6 % (36.0-47.0) 09/24/17 06:03 MCV 77.6 fL (80.0-100.0) L 09/24/17 06:03 MCH 25.1 pg (27.0-34.0) L 09/24/17 06:03 MCHC 32.4 g/dL (33.0-35.0) L 09/24/17 06:03 RDW 15.6 % (11.6-16.5) 09/24/17 06:03 Plt Count 151 X10^3/uL (150.0-450.0) 09/24/17 06:03 Plt Count Comment Adequate (ADEQUATE) 09/24/17 06:03 MPV 9.7 fL (7.4-11.0) 09/24/17 06:03 Neut % (Auto) 62.0 % (42.0-75.0) 09/24/17 06:03 Lymph % (Auto) 29.0 % (21.0-51.0) 09/24/17 06:03 [place] % (Auto) 6.8 % (0.0-13.0) 09/24/17 06:03 Eos % (Auto) 1.1 % (0.9-2.9) 09/24/17 06:03 Baso % (Auto) 1.1 % (0.2-1.0) H 09/24/17 06:03 Neut # (Auto) 2.3 x10^3/uL (2.2-4.8) 09/24/17 06:03 Lymph # (Auto) 1.1 X10^3/uL (1.3-2.9) L 09/24/17 06:03 [place] # (Auto) 0.3 x10^3/uL (0.3-0.8) 09/24/17 06:03 Eos # (Auto) 0.0 x10^3/uL (0.0-0.2) 09/24/17 06:03 Baso # (Auto) 0.0 X10^3/uL (0.0-0.1) 09/24/17 06:03 Absolute Nucleated RBC 0.0 /100WBC 09/24/17 06:03 Plt Morphology Comment Normal (NORMAL) 09/24/17 06:03 RBC Morphology Normal (NORMAL) 09/24/17 06:03 Sample Site Right radial 09/24/17 06:20 ABG pH 7.400 (7.35-7.45) 09/24/17 06:20 ABG pCO2 43.0 mmHg (35.0-45.0) 09/24/17 06:20 ABG pO2 65.0 mmHg (80.0-100.0) L 09/24/17 06:20 ABG HCO3 26.6 mmol/L (22-26) H 09/24/17 06:20 ABG O2 Saturation 92.0 % (90-100) 09/24/17 06:20 ABG Base Excess 1.5 mmol/L (-2.0-2.0) 09/24/17 06:20 Mikhail Test Pos 09/24/17 06:20 A-a Gradient 109.0 mmHg 09/24/17 06:20 FiO2 32.000 09/24/17 06:20 Blood Gas Comments Tx jose enrique well 09/24/17 06:20 Sodium 139 mmol/L (136-145) 09/24/17 06:03 Corrected Sodium 141 mmol/L (136-145) 09/24/17 06:03 Potassium 4.3 mmol/L (3.5-5.1) 09/24/17 06:03 Chloride 103 mmol/L (98-107) 09/24/17 06:03 Carbon Dioxide 25.9 mmol/L (21-32) 09/24/17 06:03 BUN 19 mg/dL (7-18) H 09/24/17 06:03 Creatinine 1.15 mg/dL (0.55-1.02) H 09/24/17 06:03 Est GFR (MDRD) Af Amer > 60 (>60) 09/24/17 06:03 Est GFR (MDRD) Non-Af 51 (>60) L 09/24/17 06:03 Glucose 187 mg/dL (65-99) H 09/24/17 06:03 Calcium 8.3 mg/dL (8.5-10.1) L 09/24/17 06:03 Corrected Calcium TNP 09/24/17 06:03 Total Bilirubin 0.60 mg/dL (0.2-1.0) 09/24/17 06:03 AST 22 Units/L (15-37) 09/24/17 06:03 ALT 27 Units/L (12-78) 09/24/17 06:03 Alkaline Phosphatase 56 Units/L (46-116) 09/24/17 06:03 Total Protein 7.7 g/dL (6.4-8.2) 09/24/17 06:03 Albumin 3.5 g/dL (3.4-5.0) 09/24/17 06:03 Globulin 4.2 g/dL (2.5-4.5) 09/24/17 06:03 Albumin/Globulin Ratio 0.8 Ratio (1.1-2.1) L 09/24/17 06:03 - XRAY XRAY Interpreted by: Radiologist (Chest: The heart remains enlarged. No congestive heart failure is noted. The aorta is calcified. There has been interval development of a right medial basal lung infiltrate suggestive of pneumonia. The patiens's cardiomegaly obscures the left lower lobe. Underlying infiltrate, atelectasis, or effusion cannot be excluded. The bony thorax is unremarkable. Impression: Interval development of a right medial basal infiltrate since the prior examination. Marked cardiomegaly without definite congestive heart failure.) - Diagnosis Discharge Problem: Right Medial Basal Infiltrate Reactive airway disease with wheezing Qualifiers: Asthma severity: mild Asthma persistence: intermittent Asthma complication type : with acute exacerbation Qualified Code(s): J45.21 - Mild intermittent asthma with (acute) exacerbation - Discharge Plan Condition: Stable - Follow ups/Referrals Follow ups/Referrals: NFD,None [Primary Care Provider] - 3 days - Instructions
[2017-09-24] MEDS ORDERED: DUONEB 0.5 MG/3 MG NEB ONE (05:52)
[2017-09-24 06:11] LABS: BASOPHILS % (AUTO) 1.1 % (0.2-1.0); EOSINOPHILS % (AUTO) 1.1 % (0.9-2.9); HEMATOCRIT 36.6 % (36.0-47.0); HEMOGLOBIN 11.9 g/dL (12.0-16.0); LYMPHOCYTES # (AUTO) 1.1 X10^3/uL (1.3-2.9); MEAN CORPUSCULAR HEMOGLOBIN 25.1 pg (27.0-34.0); MEAN CORPUSCULAR HGB CONC 32.4 g/dL (33.0-35.0); MEAN CORPUSCULAR VOLUME 77.6 fL (80.0-100.0); MEAN PLATELET VOLUME 9.7 fL (7.4-11.0); MONOCYTES # (AUTO) 0.3 x10^3/uL (0.3-0.8); MONOCYTES % (AUTO) 6.8 % (0.0-13.0); NEUTROPHILS # (AUTO) 2.3 x10^3/uL (2.2-4.8); PLATELET COUNT 151 X10^3/uL (150.0-450.0); RED BLOOD COUNT 4.72 X10^6/uL (3.5-5.4); RED CELL DISTRIBUTION WIDTH 15.6 % (11.6-16.5); WHITE BLOOD COUNT 3.7 X10^3/uL (3.6-10.0)
[2017-09-24 06:17] VITALS: BMI 41.6
[2017-09-24 06:25] LABS: ALANINE AMINOTRANSFERASE 27 Units/L (12-78); ALBUMIN 3.5 g/dL (3.4-5.0); ALKALINE PHOSPHATASE 56 Units/L (46-116); ASPARTATE AMINO TRANSFERASE 22 Units/L (15-37); BLOOD UREA NITROGEN 19 mg/dL (7-18); CALCIUM 8.3 mg/dL (8.5-10.1); CARBON DIOXIDE 25.9 mmol/L (21-32); CHLORIDE 103 mmol/L (98-107); COR NA(FOR HYPERGLY) 141 mmol/L (136-145); CREATININE 1.15 mg/dL (0.55-1.02); SODIUM 139 mmol/L (136-145); TOTAL PROTEIN 7.7 g/dL (6.4-8.2); eGFR NON BLACK RACES 51 (>60)
[2017-09-24 06:31] LABS: PLATELET MORPHOLOGY COMMENT NORMAL (NORMAL)
[2017-09-24 06:33] LABS: ABG ALLEN TEST POS; ABG BASE EXCESS 1.5 mmol/L (-2.0-2.0); ABG HCO3 26.6 mmol/L (22-26)
--- NOTE | 2017-09-24 06:35 | RAD ---
HISTORY: Shortness of breath Study: Chest AP portable Comparison: 08/10/2017 Findings: The heart remains enlarged. No congestive heart failure is noted. The aorta is calcified. There has b een interval development of a right medial basal lung infiltrate suggestive of pneumonia. The patient 's cardiomegaly obscures the left lower lobe. Underlying infiltrate, atelectasis, or effusion cannot be excluded. The bony thorax is unremarkable. IMPRESSION: Interval development of a right medial basal infiltrate since the prior examination Marked cardiomegaly without definite congestive heart failure Reported By:
[2017-09-24] MEDS ORDERED: SALINE 3% 15 ML NEB TX ONE (07:16)
[2017-09-24] MEDS ORDERED: SALINE 3% 15 ML NEB TX NEB ONE (07:18)
[2017-09-24] MEDS: DUONEB 0.5 MG/3 MG NEB SCH ×5 (07:18→20:40)
[2017-09-24 08:12] LABS: BILIRUBIN,URINE NEGATIVE (NEGATIVE); BLOOD/HEMOGLOBIN,URINE NEGATIVE (NEGATIVE); GLUCOSE, URINE NEGATIVE (NEGATIVE); KETONES,URINE NEGATIVE (NEGATIVE); LEUKOCYTE ESTERASE ,URINE 1+ (NEGATIVE); NITRITES,URINE NEGATIVE (NEGATIVE); PROTEIN,URINE 1+ (NEGATIVE); UROBILINOGEN,URINE NORMAL (NORMAL)
[2017-09-24] MEDS ORDERED: NS 1/2 1000 ML IV 1,000 ML IV ONE ×2 (08:16→23:42)
[2017-09-24 08:20] LABS: COLOR,URINE YELLOW (YELLOW)
[2017-09-24 08:21] LABS: APPEARANCE,URINE HAZY (CLEAR); BACTERIA,URINE TRACE /HPF (NEGATIVE); MUCUS,URINE MODERATE /HPF (NEGATIVE); RBC,URINE 0-2 /HPF (NONE SEEN); SQUAMOUS EPITHELIAL CELL,UR MANY /HPF (NEGATIVE)
[2017-09-24] MEDS: ROBITUSSIN DM PO SCH ×4 (08:25→21:58)
[2017-09-24] MEDS: NS 1/2 1000 ML IV 1,000 ML IV SCH (08:25)
--- NOTE | 2017-09-24 08:43 | DR.H&P ---
H&P - History & Physical for Day of: H&P Date: 09/24/17 - Chief Complaint Chief Complaint: SHORT OF BREATH - Allergies Allergies/Adverse Reactions: Allergies Allergy/AdvReac Type Severity Reaction Status Date / Time strawberry Allergy Verified 09/24/17 05:25 - History of Present Illness History of Present Illness: IS A 62 YEAR OLD PATIENT OF OURS WHO PRESENTED TO THE EMERGENCY ROOM THIS MORNING WITH COMPLAINTS OF SHORTNESS OF BREATH. SHE REPORTS THAT SYMPTOMS BEGAN YESTERDAY AND HAS PROGRESSIVLEY GOTTEN WORSE. SHE DENIES FEVER OR CARDIAC DISEASE. ON ARRIVAL, VITALS WERE 96.4-96-24- 88%NC-155/97. LABS WERE OBTAINED. ABNORMAL LAB VALUES INCLUDE THE FOLLOWING: HGB 11.9, BUN 19, CREATININE 1.15, GLUCOSE 187, CALCIUM 8.3. A URINALYSIS WAS OBTAINED AND REVEALED URINE WBC 3-5,RBC 0-2, LEUKOCYTES 1+, BACTERIA TRACE. ABG REVEALED PH 7.400, PC02 43, P02 65, HC03 26.6. A CHEST XRAY WAS OBTAINED AND REVEALED INTERVAL DEVELOPMENT OF A RIGHT MEDIAL BASE INFILTRATE SINCE THE PRIOR EXAMINATION. MARKED CARDIOMEGALY WITHOUT DEFINITE CONGESTIVE HEART FAILURE. SHE WAS GIVEN A DUONEB TREATMENT IN THE ER WITH ONLY MILD IMPROVEMENT IN SYMPTOMS. PATIENT WAS ADMITTED FOR FURTHER EVALUATION AND TREATMENT. SHE WAS ADMITTED ON THE PNEUMONIA PROTOCOL AND STARTED ON FORTAZ AND LEVAQUIN WELL RESPIRATORY TREATMENTS AND SUPPLEMENTAL OXYGEN. WE PLAN TO FOLLOW UP WITH AM LABS AND CONTINUE TO MONITOR PATIENT. 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 denies: Fever, Chills, Sweats, Malaise Eyes: No Symptoms Reported ENT: No Symptoms Reported Respiratory: Cough, Shortness of Breath, Wheezing Cardiovascular: No Symptoms Reported. denies: Chest Pain, Edema Gastrointestinal: No Symptoms Reported Genitourinary: No Symptoms Reported Musculoskeletal: No Symptoms Reported Skin: No Symptoms Reported Neurological: Weakness - Physical Exam Vital Signs: Temperature 97.5 F Pulse Rate [Apical] 81 Pulse Rate 84 Respiratory Rate 22 Blood Pressure [Right Arm] 159/94 Blood Pressure [Left Arm] 129/82 Blood Pressure 154/102 O2 Sat by Pulse Oximetry 96 Oriented: Normal Eyes: Normal Ear: Normal Nose: Normal Throat: Normal Respiratory: Wheezes Throughout Cardiovascular: Normal. negative: S3, S4, Murmur : Normal Auscultation: Bowel Sounds: Normal Palpation: Normal Tenderness: Normal Skin: Normal Musculoskeletal: Normal Psychiatric: Normal Mood Description: Calm Affect: Normal Speech Pattern: Clear - Assessment/Plan (1) Pneumonia Qualifiers: Pneumonia type: due to unspecified organism Laterality: right Lung location: middle lobe of lung Qualified Code(s): J18.1 - Lobar pneumonia, unspecified organism Status: Acute Plan: PNEUMONIA PROTOCOL, DMITRY RUBIO, RESPIRATORY TREATMENTS, SUPPLEMENTAL OXYGEN, CONTINUE TO MONITOR
[2017-09-24] MEDS ORDERED: VIBRAMYCIN 100 MG in NS 100 ML IV + SPIKE MINIBAG* 100 ML IV SCH (09:00)
[2017-09-24] MEDS ORDERED: ROCEPHIN 1 GRAM IV PREMIX 1 GM/50 ML IV.SOLN. IV SCH (09:00)
[2017-09-24] MEDS: FORTAZ or TAZICEF VIAL INJ 1 G in NS 100 ML IV + SPIKE MINIBAG* 100 ML IV SCH ×4 (09:05→22:08)
[2017-09-24] MEDS: LEVAQUIN PREMIX IV 500 MG 500 MG/100 ML BAG IV SCH (09:06)
[2017-09-24] MEDS ORDERED: CATAPRES TAB 0.1 MG PO PRN (21:14)
[2017-09-24] MEDS: COREG TAB 6.25 MG PO SCH (22:07)
--- NOTE | 2017-09-25 09:58 | RAD ---
HISTORY: Shortness of breath Study: Chest AP portable Comparison: 09/24/2017 Findings: The heart is enlarged. No congestive heart failure is noted. The aorta is calcified. There has been i mprovement in the right medial basal infiltrate noted on the prior examination. The cardiomegaly obsc ures the left lower lobe somewhat. The remainder of the lung mckinney are clear. The bony thorax is unr emarkable. IMPRESSION: Improving right basilar lung infiltrate Moderate cardiomegaly without congestive heart failure Reported By:
[2017-09-25 14:09] LABS: ALANINE AMINOTRANSFERASE 21 Units/L (12-78); ALKALINE PHOSPHATASE 45 Units/L (46-116); ASPARTATE AMINO TRANSFERASE 14 Units/L (15-37); BLOOD UREA NITROGEN 17 mg/dL (7-18); CARBON DIOXIDE 26.8 mmol/L (21-32); CHLORIDE 105 mmol/L (98-107); COR CA(FOR HYPOALB) 8.8 mg/dL (8.5-10.1); COR NA(FOR HYPERGLY) 140 mmol/L (136-145); CREATININE 1.14 mg/dL (0.55-1.02); SODIUM 139 mmol/L (136-145); TOTAL PROTEIN 6.7 g/dL (6.4-8.2); eGFR NON BLACK RACES 52 (>60)
[2017-09-25 14:10] LABS: BASOPHILS % (AUTO) 0.6 % (0.2-1.0); EOSINOPHILS # (AUTO) 0.1 x10^3/uL (0.0-0.2); EOSINOPHILS % (AUTO) 1.2 % (0.9-2.9); HEMOGLOBIN 10.8 g/dL (12.0-16.0); LYMPHOCYTES # (AUTO) 1.4 X10^3/uL (1.3-2.9); LYMPHOCYTES % (AUTO) 30.7 % (21.0-51.0); MEAN CORPUSCULAR HEMOGLOBIN 25.3 pg (27.0-34.0); MEAN CORPUSCULAR HGB CONC 32.6 g/dL (33.0-35.0); MEAN CORPUSCULAR VOLUME 77.8 fL (80.0-100.0); MEAN PLATELET VOLUME 10.4 fL (7.4-11.0); MONOCYTES # (AUTO) 0.3 x10^3/uL (0.3-0.8); MONOCYTES % (AUTO) 6.7 % (0.0-13.0); NEUTROPHILS # (AUTO) 2.8 x10^3/uL (2.2-4.8); NEUTROPHILS % (AUTO) 60.8 % (42.0-75.0); PLATELET COUNT 134 X10^3/uL (150.0-450.0); RED BLOOD COUNT 4.25 X10^6/uL (3.5-5.4); RED CELL DISTRIBUTION WIDTH 15.7 % (11.6-16.5); WHITE BLOOD COUNT 4.7 X10^3/uL (3.6-10.0)
[2017-09-25 15:22] LABS: PLATELET MORPHOLOGY COMMENT NORMAL (NORMAL)
[2017-09-25] MEDS: ROBITUSSIN DM PO SCH ×4 (16:14→20:53)
[2017-09-25] MEDS: FORTAZ or TAZICEF VIAL INJ 1 G in NS 100 ML IV + SPIKE MINIBAG* 100 ML IV SCH ×3 (16:14→21:00)
[2017-09-25] MEDS: LEVAQUIN PREMIX IV 500 MG 500 MG/100 ML BAG IV SCH (16:15)
[2017-09-25] MEDS: COREG TAB 6.25 MG PO SCH ×2 (16:15→20:53)
[2017-09-25] MEDS: DUONEB 0.5 MG/3 MG NEB SCH ×2 (16:27→20:45)
[2017-09-25] MEDS: NS 1/2 1000 ML IV 1,000 ML IV SCH ×2 (16:52→21:00)
[2017-09-25] MEDS ORDERED: NS 1/2 1000 ML IV 1,000 ML IV ONE (20:57)
[2017-09-26] MEDS: DUONEB 0.5 MG/3 MG NEB SCH ×3 (01:41→08:24)
[2017-09-26] MEDS: NS 1/2 1000 ML IV 1,000 ML IV SCH (04:23)
[2017-09-26] MEDS: FORTAZ or TAZICEF VIAL INJ 1 G in NS 100 ML IV + SPIKE MINIBAG* 100 ML IV SCH (05:01)
[2017-09-26 06:38] LABS: BASOPHILS % (AUTO) 0.6 % (0.2-1.0); EOSINOPHILS # (AUTO) 0.1 x10^3/uL (0.0-0.2); EOSINOPHILS % (AUTO) 1.5 % (0.9-2.9); HEMATOCRIT 32.5 % (36.0-47.0); HEMOGLOBIN 10.7 g/dL (12.0-16.0); LYMPHOCYTES # (AUTO) 1.3 X10^3/uL (1.3-2.9); LYMPHOCYTES % (AUTO) 34.4 % (21.0-51.0); MEAN CORPUSCULAR HEMOGLOBIN 25.5 pg (27.0-34.0); MEAN CORPUSCULAR HGB CONC 32.9 g/dL (33.0-35.0); MEAN CORPUSCULAR VOLUME 77.5 fL (80.0-100.0); MEAN PLATELET VOLUME 11.1 fL (7.4-11.0); MONOCYTES # (AUTO) 0.3 x10^3/uL (0.3-0.8); MONOCYTES % (AUTO) 8.6 % (0.0-13.0); NEUTROPHILS # (AUTO) 2.1 x10^3/uL (2.2-4.8); NEUTROPHILS % (AUTO) 54.9 % (42.0-75.0); PLATELET COUNT 114 X10^3/uL (150.0-450.0); RED BLOOD COUNT 4.19 X10^6/uL (3.5-5.4); RED CELL DISTRIBUTION WIDTH 15.7 % (11.6-16.5); WHITE BLOOD COUNT 3.8 X10^3/uL (3.6-10.0)
[2017-09-26 06:44] LABS: ALANINE AMINOTRANSFERASE 25 Units/L (12-78); ALBUMIN 2.9 g/dL (3.4-5.0); ALKALINE PHOSPHATASE 51 Units/L (46-116); ASPARTATE AMINO TRANSFERASE 22 Units/L (15-37); BLOOD UREA NITROGEN 17 mg/dL (7-18); CALCIUM 8.1 mg/dL (8.5-10.1); CARBON DIOXIDE 25.7 mmol/L (21-32); CHLORIDE 105 mmol/L (98-107); COR NA(FOR HYPERGLY) 141 mmol/L (136-145); SODIUM 140 mmol/L (136-145); TOTAL PROTEIN 6.8 g/dL (6.4-8.2); eGFR NON BLACK RACES > 60 (>60)
[2017-09-26 07:22] LABS: MICROCYTOSIS SLIGHT; PLATELET MORPHOLOGY COMMENT NORMAL (NORMAL)
[2017-09-26] MEDS: COREG TAB 6.25 MG PO SCH (09:11)
[2017-09-26] MEDS: LEVAQUIN PREMIX IV 500 MG 500 MG/100 ML BAG IV SCH (09:11)
[2017-09-26] MEDS: ROBITUSSIN DM PO SCH (09:11)
[2017-09-26 09:45] VITALS: BP 144/94
--- NOTE | 2017-09-26 17:33 | PCM.PROG ---
Progress Note - Progress Note for Day of Date: 09/25/17 - Subjective Subjective: IS BEING TREATED FOR RIGHT MEDIAL BASAL PNEUMONIA. TODAY, SHE IS LYING IN BED WITH EYES CLOSED ON MORNING ROUNDS. SHE CONTINUES WITH COMPLAINTS OF COUGH AND SHORTNESS OF BREATH. ON EXAMINATION, HEART IS REGULAR IN RATE AND RHYTHM. BILATERAL LUNGS CONTINUE WITH SCATTERED WHEEZING. SHE IS CURRENTLY UTILIZING OXYGEN VIA NASAL CANNULA AT 2L/MIN. ABDOMEN IS ROUND, SOFT, AND NON-TENDER WITH NORMAL BOWEL SOUNDS NOTED IN ALL QUADRANTS. HER VITAL SIGNS THIS MORNING ARE 98.3-91-20-97%-125/82. LABS WERE OBTAINED. ABNORMAL LAB VALUES INCLUDE THE FOLLOWING: HGB 10.8, HCT 33.0, PLT COUNT 134, GLUCOSE 146, CREATININE 1.14, CALCIUM 8.0, AST 14, ALK PHOS 45, ALBUMIN 3.0. CHEST XRAY OBTAINED AND REVEALED IMPROVING RIGHT BASILAR LUNG INFILTRATE. MODERATE CARDIOMEGALY WITHOUT CONGESTIVE HEART FAILURE. SHE CONTINUES TO RECEIVE IV ANTIBIOTICS, RESPIRATORY TREATMENTS, AND SUPPLEMENTAL OXYGEN. WE WILL CONTINUE WITH CURRENT PLAN OF CARE TODAY. OTHERWISE, WE WILL FOLLOW UP WITH AM LABS AND CONTINUE TO MONITOR PATIENT. - Past Medical Family Social History Past Med/Fam/Surg Hx: No changes since H&P Allergies: Allergies strawberry Allergy (Verified 09/24/17 05:25) - Review of Systems ROS: No change since H&P - Vital Signs and I&O's Vital Signs: Temperature 98.3 F Pulse Rate [Apical] 93 Pulse Rate 98 Respiratory Rate 20 Blood Pressure [Right Arm] 144/94 Blood Pressure [Left Arm] 129/82 Blood Pressure 154/102 O2 Sat by Pulse Oximetry 94 Intake and Output: Intake & Output 09/24/17 09/25/17 09/26/17 09/27/17 11:59 11:59 11:59 11:59 Intake Total 4257 / 4258 2561 / 2561 Balance 425 / 4258 2561 / 2561 - Physical Exam Oriented: Normal Eyes: Normal Ear: Normal Nose: Normal Throat: Normal Respiratory: Generalized, Wheezes Cardiovascular: Normal. negative: S3, S4, Murmur : Normal Auscultation: Bowel Sounds: Normal Palpation: Normal Tenderness: Normal Skin: Normal Musculoskeletal: Normal Psychiatric: Normal Mood Description: Calm Affect: Normal Speech Pattern: Clear, Appropriate - Laboratory and Diagnostics Result Diagrams: 09/26/17 04:42 09/26/17 04:42 Labs: 09/24/17 07:05 Blood Blood Culture - Preliminary 09/24/17 07:05 Blood Blood Culture - Preliminary Laboratory WBC 3.8 X10^3/uL (3.6-10.0) 09/26/17 04:42 RBC 4.19 X10^6/uL (3.5-5.4) 09/26/17 04:42 Hgb 10.7 g/dL (12.0-16.0) L 09/26/17 04:42 Hct 32.5 % (36.0-47.0) L 09/26/17 04:42 MCV 77.5 fL (80.0-100.0) L 09/26/17 04:42 MCH 25.5 pg (27.0-34.0) L 09/26/17 04:42 MCHC 32.9 g/dL (33.0-35.0) L 09/26/17 04:42 RDW 15.7 % (11.6-16.5) 09/26/17 04:42 Plt Count 114 X10^3/uL (150.0-450.0) L 09/26/17 04:42 Plt Count Comment Decreased (ADEQUATE) A 09/26/17 04:42 MPV 11.1 fL (7.4-11.0) H 09/26/17 04:42 Neut % (Auto) 54.9 % (42.0-75.0) 09/26/17 04:42 Lymph % (Auto) 34.4 % (21.0-51.0) 09/26/17 04:42 [place] % (Auto) 8.6 % (0.0-13.0) 09/26/17 04:42 Eos % (Auto) 1.5 % (0.9-2.9) 09/26/17 04:42 Baso % (Auto) 0.6 % (0.2-1.0) 09/26/17 04:42 Neut # (Auto) 2.1 x10^3/uL (2.2-4.8) L 09/26/17 04:42 Lymph # (Auto) 1.3 X10^3/uL (1.3-2.9) 09/26/17 04:42 [place] # (Auto) 0.3 x10^3/uL (0.3-0.8) 09/26/17 04:42 Eos # (Auto) 0.1 x10^3/uL (0.0-0.2) 09/26/17 04:42 Baso # (Auto) 0.0 X10^3/uL (0.0-0.1) 09/26/17 04:42 Absolute Nucleated RBC 0.1 /100WBC 09/26/17 04:42 Plt Morphology Comment Normal (NORMAL) 09/26/17 04:42 RBC Morphology Abnormal (NORMAL) A 09/26/17 04:42 Microcytosis Slight A 09/26/17 04:42 Sample Site Right radial 09/24/17 06:20 ABG pH 7.400 (7.35-7.45) 09/24/17 06:20 ABG pCO2 43.0 mmHg (35.0-45.0) 09/24/17 06:20 ABG pO2 65.0 mmHg (80.0-100.0) L 09/24/17 06:20 ABG HCO3 26.6 mmol/L (22-26) H 09/24/17 06:20 ABG O2 Saturation 92.0 % (90-100) 09/24/17 06:20 ABG Base Excess 1.5 mmol/L (-2.0-2.0) 09/24/17 06:20 Mikhail Test Pos 09/24/17 06:20 A-a Gradient 109.0 mmHg 09/24/17 06:20 FiO2 32.000 09/24/17 06:20 Blood Gas Comments Tx jose enrique well 09/24/17 06:20 Sodium 140 mmol/L (136-145) 09/26/17 04:42 Corrected Sodium 141 mmol/L (136-145) 09/26/17 04:42 Potassium 4.0 mmol/L (3.5-5.1) 09/26/17 04:42 Chloride 105 mmol/L (98-107) 09/26/17 04:42 Carbon Dioxide 25.7 mmol/L (21-32) 09/26/17 04:42 BUN 17 mg/dL (7-18) 09/26/17 04:42 Creatinine 1.00 mg/dL (0.55-1.02) 09/26/17 04:42 Est GFR (MDRD) Af Amer > 60 (>60) 09/26/17 04:42 Est GFR (MDRD) Non-Af > 60 (>60) 09/26/17 04:42 Glucose 160 mg/dL (65-99) H 09/26/17 04:42 POC Glucose (mg/dL) 134 mg/dL (65-99) H 09/25/17 11:34 Calcium 8.1 mg/dL (8.5-10.1) L 09/26/17 04:42 Corrected Calcium 9.0 mg/dL (8.5-10.1) 09/26/17 04:42 Total Bilirubin 0.70 mg/dL (0.2-1.0) 09/26/17 04:42 AST 22 Units/L (15-37) 09/26/17 04:42 ALT 25 Units/L (12-78) 09/26/17 04:42 Alkaline Phosphatase 51 Units/L (46-116) 09/26/17 04:42 Total Protein 6.8 g/dL (6.4-8.2) 09/26/17 04:42 Albumin 2.9 g/dL (3.4-5.0) L 09/26/17 04:42 Globulin 3.9 g/dL (2.5-4.5) 09/26/17 04:42 Albumin/Globulin Ratio 0.7 Ratio (1.1-2.1) L 09/26/17 04:42 Specimen Type Clean catch urine 09/24/17 08:00 Urine Color Yellow (YELLOW) 09/24/17 08:00 Urine Appearance Hazy (CLEAR) 09/24/17 08:00 Urine pH 6.0 (5.0 - 8.0) 09/24/17 08:00 Ur Specific [place] 1.010 (1.000-1.030) 09/24/17 08:00 Urine Protein 1+ (NEGATIVE) 09/24/17 08:00 Urine Glucose (UA) Negative (NEGATIVE) 09/24/17 08:00 Urine Ketones Negative (NEGATIVE) 09/24/17 08:00 Urine Occult Blood Negative (NEGATIVE) 09/24/17 08:00 Urine Nitrite Negative (NEGATIVE) 09/24/17 08:00 Urine Bilirubin Negative (NEGATIVE) 09/24/17 08:00 Urine Urobilinogen Normal (NORMAL) 09/24/17 08:00 Ur Leukocyte Esterase 1+ (NEGATIVE) 09/24/17 08:00 Urine RBC 0-2 /HPF (NONE SEEN) 09/24/17 08:00 Urine WBC 3-5 /HPF (NONE SEEN) 09/24/17 08:00 Ur Squamous Epith Cells Many /HPF (NEGATIVE) 09/24/17 08:00 Urine Bacteria Trace /HPF (NEGATIVE) 09/24/17 08:00 Urine Mucus Moderate /HPF (NEGATIVE) 09/24/17 08:00 Ur Culture Indicated? No/not indicated 09/24/17 08:00 - Plan (1) Pneumonia Status: Acute Qualifiers: Pneumonia type: due to unspecified organism Laterality: right Lung location: middle lobe of lung Qualified Code(s): J18.1 - Lobar pneumonia, unspecified organism Plan: PNEUMONIA PROTOCOL, FORTAZ, LEVAQUIN, RESPIRATORY TREATMENTS, SUPPLEMENTAL OXYGEN, CONTINUE TO MONITOR
--- NOTE | 2017-09-29 22:51 | DR.CARTERD ---
- Discharge Summary for: Discharge Summary for Date of:: 09/26/17 - Admission Date Date of Admission: 09/24/17 - Admission Diagnoses Admission Diagnosis: (1) Pneumonia (2) Shortness of breath - Discharge Date Discharge Date: 09/26/17 - Discharge Diagnoses Discharge Diagnosis: (1) Pneumonia (2) Shortness of breath - Hospital Course Hospital Course: IS A 62 YEAR OLD PATIENT OF OURS WHO PRESENTED TO THE EMERGENCY ROOM WITH COMPLAINTS OF SHORTNESS OF BREATH. SHE REPORTED THAT SYMPTOMS BEGAN THE DAY BEFORE AND HAD PROGRESSIVELY WORSENED. SHE DENIED FEVER OR CARDIAC DISEASE. ON ARRIVAL, VITALS WERE 96.4-96-24-88%NC-155/97. LABS WERE OBTAINED. ABNORMAL LAB VALUES INCLUDED THE FOLLOWING: HGB 11.9, BUN 19, CREATININE 1.15, GLUCOSE 187, CALCIUM 8.3. A URINALYSIS WAS OBTAINED AND REVEALED URINE WBC 3-5,RBC 0-2, LEUKOCYTES 1+, BACTERIA TRACE. ABG REVEALED PH 7.400, PC02 43, P02 65, HC03 26.6. A CHEST XRAY WAS OBTAINED AND REVEALED INTERVAL DEVELOPMENT OF A RIGHT MEDIAL BASE INFILTRATE SINCE THE PRIOR EXAMINATION. MARKED CARDIOMEGALY WITHOUT DEFINITE CONGESTIVE HEART FAILURE. SHE WAS GIVEN A DUONEB TREATMENT IN THE ER WITH ONLY MILD IMPROVEMENT IN SYMPTOMS. PATIENT WAS ADMITTED FOR FURTHER EVALUATION AND TREATMENT. SHE WAS ADMITTED ON THE PNEUMONIA PROTOCOL AND STARTED ON FORTAZ AND LEVAQUIN WELL RESPIRATORY TREATMENTS AND SUPPLEMENTAL OXYGEN. WE CONTINUED TO MONITOR PATIENT. ON DAY TWO, SHE CONTINUED WITH COUGH AND SHORTNESS OF BREATH. SHE REMAINED ON SUPPLEMENTAL OXYGEN WELL PNEUMONIA PROTOCOL WITH AGGRESSIVE PULMONARY TOILETING. ON DAY THREE, PATIENT WAS DOING BETTER. SHE REPORTED SHE FELT BETTER. COUGH WAS INTERMITTENT, NON-PRODUCTIVE. ON AUSCULTATION, LUNGS WERE NOTED WITH SCATTERED RHONCHI. FINAL BLOOD CULTURES WERE NEGATIVE. VITAL SIGNS STABLE, AFEBRILE. LABS WNL. WE PLANNED FOR DISCHARGE. INSTRUCTIONS FOR MEDICATIONS AND FOLLOW UP WERE DISCUSSED WITH PATIENT AND FAMILY, BOTH VOICED UNDERSTANDING. PATIENT DISCHARGED HOME IN STABLE CONDITION WITH FAMILY. - Discharge Medications Discharge Medications: dextromethorphan-guaifenesin [Mucinex DM] 1 tab PO Q12H #20 tab 09/26/17 [Rx] ipratropium-albuterol 1 ea NEB TID #90 ml 09/26/17 [Rx] levofloxacin [Levaquin] 500 mg PO DAILY #10 tab 09/26/17 [Rx] aspirin [Aspir-Low] 81 mg PO DAILY 08/08/17 atorvastatin [Lipitor] 40 mg PO HS 08/08/17 carvedilol [Coreg] 6.25 mg PO BID 08/08/17 furosemide [Lasix] 20 mg PO BID 08/08/17 pantoprazole [Protonix] 40 mg PO DAILY 08/08/17 potassium chloride [Klor-Con 10] 10 meq PO BID 08/08/17 - Discharge Disposition Discharge Disposition: PATIENT IS TO FOLLOW UP WITH PATEL BECKFORD IN ONE WEEK.
== END 2017-09-26 11:26 | disposition home or self-care (01) | DRG 194 ==
LOC: ER 05:23 → ICU 07:05 → MED/SURG 09-25 14:13
PROVIDERS: ADMIT Internal Medicine; ATTEND Internal Medicine
DX: J18.8 Other pneumonia, unspecified organism; E11.65 Type 2 diabetes mellitus with hyperglycemia; I10 Essential (primary) hypertension; R06.02 Shortness of breath; G47.39 Other sleep apnea; J45.21 Mild intermittent asthma with (acute) exacerbation; E78.2 Mixed hyperlipidemia
CPT/HCPCS: 36415; 36600; 71010; 71045; 80053; 81001; 82803; 85025; 87040; 93005; 94640; 96365; 99284; A4222; J0696; J0713; J1956; J3490; J7050; J7620

== ENCOUNTER 2017-12-30 21:46 | Inpatient (IN) ==
[2017-12-30 22:18] LABS: BASOPHILS % (AUTO) 1.3 % (0.2-1.0); EOSINOPHILS # (AUTO) 0.1 x10^3/uL (0.0-0.2); EOSINOPHILS % (AUTO) 1.7 % (0.9-2.9); HEMATOCRIT 38.7 % (36.0-47.0); HEMOGLOBIN 12.5 g/dL (12.0-16.0); LYMPHOCYTES # (AUTO) 1.4 X10^3/uL (1.3-2.9); LYMPHOCYTES % (AUTO) 35.3 % (21.0-51.0); MEAN CORPUSCULAR HEMOGLOBIN 25.2 pg (27.0-34.0); MEAN CORPUSCULAR HGB CONC 32.4 g/dL (33.0-35.0); MEAN CORPUSCULAR VOLUME 77.7 fL (80.0-100.0); MEAN PLATELET VOLUME 10.9 fL (7.4-11.0); MONOCYTES # (AUTO) 0.3 x10^3/uL (0.3-0.8); MONOCYTES % (AUTO) 6.7 % (0.0-13.0); NEUTROPHILS # (AUTO) 2.1 x10^3/uL (2.2-4.8); PLATELET COUNT 131 X10^3/uL (150.0-450.0); RED BLOOD COUNT 4.98 X10^6/uL (3.5-5.4); RED CELL DISTRIBUTION WIDTH 17.1 % (11.6-16.5); WHITE BLOOD COUNT 3.8 X10^3/uL (3.6-10.0)
--- NOTE | 2017-12-30 22:21 | RAD ---
Chest AP portable Indication: Dyspnea Comparison: 09/25/2017 Findings: There is no pneumothorax. There is cardiomegaly with increased interstitial markings and ef fusions likely. Impression: Cardiomegaly and pulmonary edema suggesting CHF, similar to the prior. Underlying infecti on difficult to exclude. Follow-up to resolution. Reported By:
[2017-12-30 22:33] LABS: PLATELET MORPHOLOGY COMMENT NORMAL (NORMAL)
[2017-12-30 22:34] LABS: BLOOD UREA NITROGEN 26 mg/dL (7-18); CHLORIDE 106 mmol/L (98-107); COR NA(FOR HYPERGLY) 143 mmol/L (136-145); CREATININE 1.36 mg/dL (0.55-1.02); SODIUM 142 mmol/L (136-145); TROPONIN I 0.06 ng/mL (0-1.5); eGFR NON BLACK RACES 42 (>60)
[2017-12-30 22:38] LABS: ALANINE AMINOTRANSFERASE 29 Units/L (12-78); ALBUMIN 3.7 g/dL (3.4-5.0); ALKALINE PHOSPHATASE 60 Units/L (46-116); ASPARTATE AMINO TRANSFERASE 21 Units/L (15-37); CKMB % 2.4 % (<4); CREATINE KINASE 42 Units/L (26-192); MAGNESIUM 2.1 mg/dL (1.7-2.9); TOTAL PROTEIN 7.8 g/dL (6.4-8.2)
--- NOTE | 2017-12-30 22:44 | RAD ---
Abdomen-two views Indication: Abdominal sensitivity. Findings: There is large amount of stool in the colon without free air or pneumatosis seen. Periphera lly calcified density over the left upper abdomen could represent splenic artery aneurysm. There is no free air or pneumatosis. Impression: 1. Constipation. 2. 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 Follow-up outpatient with vascular surgery and CT to [facility]. Reported By:
[2017-12-30] MEDS ORDERED: LASIX IVP ONE ×2 (22:48→23:11)
[2017-12-30] MEDS ORDERED: NS 100 ML IV 100 ML IV ONE (23:12)
[2017-12-30 23:26] LABS: ABG ALLEN TEST POS; ABG BASE EXCESS 0.6 mmol/L (-2.0-2.0); ABG HCO3 24.5 mmol/L (22-26); FRACTIONATED INSPIRED OXYGEN 21
[2017-12-31 00:02] LABS: APPEARANCE,URINE CLEAR (CLEAR); BILIRUBIN,URINE NEGATIVE (NEGATIVE); BLOOD/HEMOGLOBIN,URINE NEGATIVE (NEGATIVE); COLOR,URINE YELLOW (YELLOW); GLUCOSE, URINE NEGATIVE (NEGATIVE); KETONES,URINE NEGATIVE (NEGATIVE); LEUKOCYTE ESTERASE ,URINE NEGATIVE (NEGATIVE); NITRITES,URINE NEGATIVE (NEGATIVE); PROTEIN,URINE 2+ (NEGATIVE); RBC,URINE NONE SEEN /HPF (NONE SEEN); UROBILINOGEN,URINE 2+ (NORMAL)
[2017-12-31 00:03] LABS: BACTERIA,URINE NEGATIVE /HPF (NEGATIVE); SQUAMOUS EPITHELIAL CELL,UR RARE /HPF (NEGATIVE)
[2017-12-31] MEDS ORDERED: COLACE CAP 100 MG PO PRN (01:30)
[2017-12-31] MEDS ORDERED: MILK OF MAGNESIA PO SCH (01:30)
--- NOTE | 2017-12-31 05:01 | DR.SOBA ---
HPI Time Seen Time Seen by Provider: 12/30/17 22:16 Primary Care Physician Primary Care Physician: FRANNIE Complaints Chief Complaint Doctors Comments: I agree with statement as written. She admits more to abdominal pain, fullness. Chief Complaint:: SHORT OF BREATH ALL DAY, COMES AND GOES. CHEST FULLNESS, ABD PAIN. 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 Family History History of Family Medical Conditions: Yes Family Medical History: Diabetes Mellitus, [place], Coronary Artery Disease and Hypertension Social History Type of Tobacco Use: None Alcohol Use: None Do you use any recreational Drugs:: No Lives With: Family Lives Where: Home infectious screening Have you traveled outside the country in the last 6 months?: No Isolation: Standard PE Vital Signs Vitals: Temperature 98.2 F Pulse Rate [Apical] 80 Pulse Rate 95 Respiratory Rate 18 Blood Pressure [Right Arm] 150/96 Blood Pressure [Left Arm] 155/103 Blood Pressure 167/111 O2 Sat by Pulse Oximetry 98 General Limitations: No Limitations; negative Altered Mental Status General Appearance: Alert and In No Apparent Distress; negative In Distress Head Head Exam: Normal Inspection, Atraumatic and Normocephalic Eyes Eye exam: Normal Appearance, PERRL and EOMI ENT ENT Exam: Normal Exam, Normal Oropharynx and Normal External Ear Exam Neck Neck Exam: Normal Inspection and Full ROM Chest Chest Inspection: Normal Inspection and Symmetric Chest Wall Rise Respiratory Respiratory Exam: Normal Lung Sounds Bilat; negative Chest Wall Tenderness, Prolonged Expiratory Phase, Respiratory Distress and Stridor Respiratory Exam: Bilateral: Clear to Auscultation Cardiovascular Cardiovascular Exam: Regular Rate and Normal Rhythm Abdominal Exam Abdominal Exam: Normal Inspection, Normal Bowel Sounds, Distention and Dimnished Bowel Sounds; negative Tenderness, Guarding and Hyperactive Bowel Sounds Abdominal Tenderness: Diffuse Extremities Extremities Exam: Normal Inspection and Full ROM Back Back Exam: Normal Inspection and Full ROM Neurologic Neurological Exam: Alert, Oriented X3 and CN II-XII Intact Psychiatric Psychiatric Exam: Normal Affect Skin Skin Exam: Warm, Dry, Intact and Normal Color COURSE Treatment Treatment: Oxygen,furosemide IV Reevaluation 1st: (2354) Consultation Called: 00:15 Consultation Comments: agreed to admit for further evaluation and treatment ROR Labs Reviewed Laboratory Results Reviewed?: Yes Result Diagrams: 12/30/17 22:08 12/30/17 22:08 Laboratory: WBC 3.8 X10^3/uL (3.6-10.0) 12/30/17 22:08 RBC 4.98 X10^6/uL (3.5-5.4) 12/30/17 22:08 Hgb 12.5 g/dL (12.0-16.0) 12/30/17 22:08 Hct 38.7 % (36.0-47.0) 12/30/17 22:08 MCV 77.7 fL (80.0-100.0) L 12/30/17 22:08 MCH 25.2 pg (27.0-34.0) L 12/30/17 22:08 MCHC 32.4 g/dL (33.0-35.0) L 12/30/17 22:08 RDW 17.1 % (11.6-16.5) H 12/30/17 22:08 Plt Count 131 X10^3/uL (150.0-450.0) L 12/30/17 22:08 Plt Count Comment Adequate (ADEQUATE) 12/30/17 22:08 MPV 10.9 fL (7.4-11.0) 12/30/17 22:08 Neut % (Auto) 55.0 % (42.0-75.0) 12/30/17 22:08 Lymph % (Auto) 35.3 % (21.0-51.0) 12/30/17 22:08 [place] % (Auto) 6.7 % (0.0-13.0) 12/30/17 22:08 Eos % (Auto) 1.7 % (0.9-2.9) 12/30/17 22:08 Baso % (Auto) 1.3 % (0.2-1.0) H 12/30/17 22:08 Neut # (Auto) 2.1 x10^3/uL (2.2-4.8) L 12/30/17 22:08 Lymph # (Auto) 1.4 X10^3/uL (1.3-2.9) 12/30/17 22:08 [place] # (Auto) 0.3 x10^3/uL (0.3-0.8) 12/30/17 22:08 Eos # (Auto) 0.1 x10^3/uL (0.0-0.2) 12/30/17 22:08 Baso # (Auto) 0.0 X10^3/uL (0.0-0.1) 12/30/17 22:08 Absolute Nucleated RBC 0.2 /100WBC 12/30/17 22:08 Plt Morphology Comment Normal (NORMAL) 12/30/17 22:08 RBC Morphology Normal (NORMAL) 12/30/17 22:08 INR Target Range - 12/30/17 22:08 INR 1.05 (0.8-1.3) 12/30/17 22:08 APTT 28.6 SECONDS (22.9-36.5) 12/30/17 22:08 PTT Comment - 12/30/17 22:08 D-Dimer 939 ng/mL (0-400) H* 12/30/17 22:08 Sample Site Right brachial 12/30/17 23:09 ABG pH 7.440 (7.35-7.45) 12/30/17 23:09 ABG pCO2 36.0 mmHg (35.0-45.0) 12/30/17 23:09 ABG pO2 60.0 mmHg (80.0-100.0) L 12/30/17 23:09 ABG HCO3 24.5 mmol/L (22-26) 12/30/17 23:09 ABG O2 Saturation 92.0 % (90-100) 12/30/17 23:09 ABG Base Excess 0.6 mmol/L (-2.0-2.0) 12/30/17 23:09 Mikhail Test Pos 12/30/17 23:09 A-a Gradient 45.0 mmHg 12/30/17 23:09 FiO2 21 12/30/17 23:09 Blood Gas Comments María well jts 12/30/17 23:09 Sodium 142 mmol/L (136-145) 12/30/17 22:08 Corrected Sodium 143 mmol/L (136-145) 12/30/17 22:08 Potassium 4.4 mmol/L (3.5-5.1) 12/30/17 22:08 Chloride 106 mmol/L (98-107) 12/30/17 22:08 Carbon Dioxide 28.0 mmol/L (21-32) 12/30/17 22:08 BUN 26 mg/dL (7-18) H 12/30/17 22:08 Creatinine 1.36 mg/dL (0.55-1.02) H 12/30/17 22:08 Est GFR (MDRD) Af Amer 51 (>60) L 12/30/17 22:08 Est GFR (MDRD) Non-Af 42 (>60) L 12/30/17 22:08 Glucose 147 mg/dL (65-99) H 12/30/17 22:08 Calcium 9.0 mg/dL (8.5-10.1) 12/30/17 22:08 Corrected Calcium TNP 12/30/17 22:08 Magnesium 2.1 mg/dL (1.7-2.9) 12/30/17 22:08 Total Bilirubin 0.50 mg/dL (0.2-1.0) 12/30/17 22:08 AST 21 Units/L (15-37) 12/30/17 22:08 ALT 29 Units/L (12-78) 12/30/17 22:08 Alkaline Phosphatase 60 Units/L (46-116) 12/30/17 22:08 Creatine Kinase 42 Units/L (26-192) 12/30/17 22:08 CK-MB (CK-2) 1.0 ng/mL (0-4.0) 12/30/17 22:08 CK/CKMB % Calc 2.4 % (<4) 12/30/17 22:08 Troponin I 0.06 ng/mL (0-1.5) 12/30/17 22:08 Total Protein 7.8 g/dL (6.4-8.2) 12/30/17 22:08 Albumin 3.7 g/dL (3.4-5.0) 12/30/17 22:08 Globulin 4.1 g/dL (2.5-4.5) 12/30/17 22:08 Albumin/Globulin Ratio 0.9 Ratio (1.1-2.1) L 12/30/17 22:08 Specimen Type Catherized urine 12/30/17 23:31 Urine Color Yellow (YELLOW) 12/30/17 23: Urine Appearance Clear (CLEAR) 12/30/17 23: Urine pH 5.0 (5.0 - 8.0) 12/30/17 23: Ur Specific [place] 1.020 (1.000-1.030) 12/30/17 23: Urine Protein 2+ (NEGATIVE) 12/30/17 23: Urine Glucose (UA) Negative (NEGATIVE) 12/30/17 23: Urine Ketones Negative (NEGATIVE) 12/30/17 23: Urine Occult Blood Negative (NEGATIVE) 12/30/17 23: Urine Nitrite Negative (NEGATIVE) 12/30/17 23: Urine Bilirubin Negative (NEGATIVE) 12/30/17 23: Urine Urobilinogen 2+ (NORMAL) 12/30/17 23: Ur Leukocyte Esterase Negative (NEGATIVE) 12/30/17 23: Urine RBC None seen /HPF (NONE SEEN) 12/30/17 23: Urine WBC 0-2 /HPF (NONE SEEN) 12/30/17 23: Ur Squamous Epith Cells Rare /HPF (NEGATIVE) 12/30/17 23: Urine Bacteria Negative /HPF (NEGATIVE) 12/30/17 23:31 Ur Culture Indicated? No/not indicated 12/30/17 23: Other Results Comments: Abdomen:Constipation. 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 Follow up outpatient with vascular surgery and CT to further characterize. XRAY XRAY Interpreted by: Radiologist XRAY Findings: Chest:Cardiomegaly and pulmonnary edema suggesting CHF,similar to prior Diagnosis Discharge Problem: CHF (congestive heart failure), Elevated d-dimer, Dehydration, mild, Constipation ADDITIONAL NOTES Additional Notes Additional Notes: Patient admitted to hospital
[2017-12-31 05:37] LABS: CKMB % 2.3 % (<4); CREATINE KINASE 43 Units/L (26-192); CREATINE KINASE MB < 1.0 ng/mL (0-4.0); TROPONIN I 0.06 ng/mL (0-1.5)
[2017-12-31 09:00] LABS: BASOPHILS % (AUTO) 1.3 % (0.2-1.0); EOSINOPHILS # (AUTO) 0.1 x10^3/uL (0.0-0.2); HEMATOCRIT 37.8 % (36.0-47.0); HEMOGLOBIN 12.2 g/dL (12.0-16.0); LYMPHOCYTES # (AUTO) 1.5 X10^3/uL (1.3-2.9); LYMPHOCYTES % (AUTO) 39.5 % (21.0-51.0); MEAN CORPUSCULAR HGB CONC 32.3 g/dL (33.0-35.0); MEAN CORPUSCULAR VOLUME 77.4 fL (80.0-100.0); MEAN PLATELET VOLUME 10.4 fL (7.4-11.0); MONOCYTES # (AUTO) 0.3 x10^3/uL (0.3-0.8); MONOCYTES % (AUTO) 7.2 % (0.0-13.0); NEUTROPHILS # (AUTO) 1.9 x10^3/uL (2.2-4.8); PLATELET COUNT 81 X10^3/uL (150.0-450.0); RED BLOOD COUNT 4.89 X10^6/uL (3.5-5.4); RED CELL DISTRIBUTION WIDTH 16.6 % (11.6-16.5); WHITE BLOOD COUNT 3.8 X10^3/uL (3.6-10.0)
[2017-12-31] MEDS ORDERED: LASIX IVP SCH (09:00)
[2017-12-31 09:09] LABS: ALANINE AMINOTRANSFERASE 27 Units/L (12-78); ALBUMIN 3.5 g/dL (3.4-5.0); ALKALINE PHOSPHATASE 54 Units/L (46-116); ASPARTATE AMINO TRANSFERASE 22 Units/L (15-37); BLOOD UREA NITROGEN 23 mg/dL (7-18); CALCIUM 8.9 mg/dL (8.5-10.1); CARBON DIOXIDE 28.4 mmol/L (21-32); CHLORIDE 106 mmol/L (98-107); COR NA(FOR HYPERGLY) 143 mmol/L (136-145); CREATININE 1.27 mg/dL (0.55-1.02); SODIUM 142 mmol/L (136-145); TOTAL PROTEIN 7.4 g/dL (6.4-8.2); eGFR NON BLACK RACES 46 (>60)
[2017-12-31 09:16] LABS: GIANT PLATELET RARE; PLATELET MORPHOLOGY COMMENT NORMAL (NORMAL)
[2017-12-31] MEDS: ASPIRIN EC 81 MG PO SCH (09:37)
[2017-12-31] MEDS: COREG TAB 6.25 MG PO SCH ×2 (09:38→21:19)
[2017-12-31] MEDS: LASIX IVP SCH ×2 (09:38→21:19)
[2017-12-31] MEDS: ZESTRIL TAB 10 MG PO SCH (09:38)
[2017-12-31 09:54] LABS: CKMB % 2.1 % (<4); CREATINE KINASE 47 Units/L (26-192); CREATINE KINASE MB < 1.0 ng/mL (0-4.0); TROPONIN I 0.04 ng/mL (0-1.5)
--- NOTE | 2017-12-31 11:23 | DR.H&P ---
H&P - History & Physical for Day of: H&P Date: 12/31/17 - Chief Complaint Chief Complaint: ABDOMINAL PAIN, CHEST "FULLNESS", SHORT OF BREATH - History of Present Illness History of Present Illness: IS A 62 YEAR OLD PATIENT OF OURS WHO PRESENTED TO THE EMERGENCY ROOM WITH COMPLAINTS OF SHORTNESS OF BREATH, CHEST FULLNESS AND ABDOMINAL PAIN. SHE REPORTS THAT SYMPTOMS STARTED YESTERDAY AND HAD GOTTEN PROGRESSIVELY WORSE THROUGHOUT THE DAY. ON ARRIVAL, VITALS WERE 97.3- 101-22-97%-167/11. LABS WERE OBTAINED. ABNORMAL LAB VALUES INCLUDE THE FOLLOWING : PLT COUNT 131, D-DIMER 939, BUN 26, CREATININE 1.36, GLUCOSE 147. CARDIAC ENZYMES AND ABG WITHIN NORMAL LIMITS. URINALYSIS UNREMARKABLE. A CHEST XRAY WAS OBTAINED AND REVEALED: Cardiomegaly and pulmonary edema suggesting CHF, similar to the prior. Underlying infection difficult to exclude. A KUB WAS OBTAINED AND REVEALED: Constipation. 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 Follow-up outpatient with vascular surgery and CT to further characterize. EKG REVEALED: SINUS RHYTHM WITH HR 94. PATIENT REFUSED A CHEST CT IN THE ER. SHE STATES THAT SHE DID NOT WANT THE DYE. SHE WAS GIBEN LASIX 40MG IV X 1 DOSE IN THE ER. SHE WAS ADMITTED TO THE HOSPITAL FOR FURTHER EVALUATION AND TREATMENT OF DEHYDRATION , ABDOMINAL PAIN, AND GENERALIZED WEAKNESS. SHE WAS STARTED ON A BOWEL REGIMEN AND HOME MEDICATIONS WERE RESUMED. TODAY, WE WILL REPEAT A KUB AND OBTAIN AN ABDOMEN/PELVIS CT WITH ORAL CONTRAST TO FOLLOW-UP ON KUB FINDINGS. OTHERWISE, WE WILL FOLLOW UP WITH AM LABS AND CONTINUE TO MONITOR PATIENT. 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 - Family History Family Medical History: Diabetes Mellitus, [place], Coronary Artery Disease, Hypertension - Social History Does patient currently use any type of tobacco product: Yes Have you used tobacco products in the last 12 months: Yes Type of Tobacco Use: None How many years tobacco product used: 30 Does any household member use tobacco: Yes Alcohol Use: None - Medications Home Medications: strawberry Allergy (Verified 12/30/17 21:58) - Review of Systems Constitutional: No Symptoms Reported Eyes: No Symptoms Reported ENT: No Symptoms Reported Respiratory: See HPI, Shortness of Breath, SOB with Excertion Cardiovascular: Chest Pain Gastrointestinal: Abdominal Pain, Constipation Genitourinary: No Symptoms Reported Musculoskeletal: No Symptoms Reported Skin: No Symptoms Reported Neurological: Weakness - Physical Exam Vital Signs: Temperature 97.9 F Pulse Rate [Apical] 81 Pulse Rate 95 Respiratory Rate 20 Blood Pressure [Right Arm] 157/98 Blood Pressure [Left Arm] 155/103 Blood Pressure 167/111 O2 Sat by Pulse Oximetry 96 Oriented: Normal Eyes: Normal Ear: Normal Nose: Normal Throat: Normal Respiratory: Diminished Throughout Cardiovascular: Normal. negative: S3, S4, Murmur : Normal Auscultation: Bowel Sounds: Normal Palpation: Normal Tenderness: Diffuse, Mild. negative: Rebound, Guarding, Rigidity Skin: Normal Musculoskeletal: Normal Psychiatric: Normal Mood Description: Calm Affect: Normal Speech Pattern: Clear - Assessment/Plan (1) Dehydration, mild Status: Acute (2) Constipation Status: Acute (3) Weakness Status: Acute - Allergies Allergies/Adverse Reactions: Allergies Allergy/AdvReac Type Severity Reaction Status Date / Time strawberry Allergy Verified 12/30/17 21:58
[2017-12-31] MEDS: MILK OF MAGNESIA PO SCH ×4 (11:29→21:18)
[2017-12-31] MEDS: MIRALAX POWDER (1 DOSE 17 G) PO SCH (11:29)
[2017-12-31] MEDS: COLACE CAP 100 MG PO SCH ×2 (11:29→21:18)
--- NOTE | 2017-12-31 14:35 | CT ---
CT OF THE ABDOMEN AND PELVIS WITHOUT CONTRAST HISTORY: Abdominal pain. Comparison: None Technique: Multiple axial images of the abdomen and pelvis were obtained from the lung bases to the pubic symphy sis without the administration of IV contrast. Oral contrast was administered. Dose reduction techni ques including Automated Exposure Control (AEC) and adjustment of mA and kV were utlized. Findings: Cardiomegaly is present. Trace pericardial effusion. Lung bases are clear without focal consolidation , pleural effusion or pneumothorax. The sensitivity for focal lesion detection within the solid abdominal viscera is diminished without t he use of IV contrast. Liver and spleen are normal in size, and contour. No focal lesions. No ductal dilitation. Gallbladder is present. No calcified gallstones or gallbladder wall thickening. The pancreas is unremarkable. Ad renal glands are normal. Possible small nonobstructing bilateral renal stones versus renal vascular c alcifications. No hydronephrosis. Finding on KUB suggesting splenic artery aneurysm appears to simpl y represent vascular calcification. No bowel obstruction or inflammation. Normal appendix. No abnormal appearing mesenteric or retroperit wagner lymph nodes. No free fluid or fluid collections. The bladder is normal in appearance. Uterus present. No free fluid or abnormal pelvic lymph nodes. No aggressive osseous lesions. IMPRESSION: 1. No source of patient's abdominal pain is identified on this examination. 2. Bilateral nephrolithiasis. 3. Finding in question on recent KUB is likely artifactual just related to vascular calcification. Reported By:
[2018-01-01 05:15] LABS: BASOPHILS % (AUTO) 0.8 % (0.2-1.0); EOSINOPHILS # (AUTO) 0.1 x10^3/uL (0.0-0.2); EOSINOPHILS % (AUTO) 1.7 % (0.9-2.9); HEMATOCRIT 37.9 % (36.0-47.0); HEMOGLOBIN 12.2 g/dL (12.0-16.0); LYMPHOCYTES # (AUTO) 1.3 X10^3/uL (1.3-2.9); LYMPHOCYTES % (AUTO) 33.4 % (21.0-51.0); MEAN CORPUSCULAR HGB CONC 32.2 g/dL (33.0-35.0); MEAN CORPUSCULAR VOLUME 77.8 fL (80.0-100.0); MEAN PLATELET VOLUME 10.7 fL (7.4-11.0); MONOCYTES # (AUTO) 0.3 x10^3/uL (0.3-0.8); MONOCYTES % (AUTO) 7.3 % (0.0-13.0); NEUTROPHILS # (AUTO) 2.2 x10^3/uL (2.2-4.8); NEUTROPHILS % (AUTO) 56.8 % (42.0-75.0); PLATELET COUNT 121 X10^3/uL (150.0-450.0); RED BLOOD COUNT 4.87 X10^6/uL (3.5-5.4); WHITE BLOOD COUNT 3.9 X10^3/uL (3.6-10.0)
[2018-01-01 05:27] LABS: ALANINE AMINOTRANSFERASE 26 Units/L (12-78); ALBUMIN 3.5 g/dL (3.4-5.0); ALKALINE PHOSPHATASE 55 Units/L (46-116); ASPARTATE AMINO TRANSFERASE 18 Units/L (15-37); BLOOD UREA NITROGEN 25 mg/dL (7-18); CALCIUM 9.1 mg/dL (8.5-10.1); CARBON DIOXIDE 34.5 mmol/L (21-32); CHLORIDE 103 mmol/L (98-107); COR NA(FOR HYPERGLY) 143 mmol/L (136-145); SODIUM 142 mmol/L (136-145); TOTAL PROTEIN 7.4 g/dL (6.4-8.2); eGFR NON BLACK RACES 41 (>60)
--- NOTE | 2018-01-01 06:29 | RAD ---
HISTORY: Abdominal pain Study: KUB Comparison: 12/30/2017, CT abdomen pelvis 12/31/2017 Findings: The abdominal gas pattern is nonspecific and nonobstructive. No abnormal masses or significant abnorm al calcifications are identified. Vascular calcifications are identified in the left upper quadrant j ust to the left of L1. IMPRESSION: No significant abnormality identified Reported By:
[2018-01-01 06:44] LABS: HYPOCHROMASIA 1+; PLATELET MORPHOLOGY COMMENT NORMAL (NORMAL)
[2018-01-01] MEDS: ASPIRIN EC 81 MG PO SCH (09:24)
[2018-01-01] MEDS: COLACE CAP 100 MG PO SCH ×2 (09:24→21:31)
[2018-01-01] MEDS: MIRALAX POWDER (1 DOSE 17 G) PO SCH (09:24)
[2018-01-01] MEDS: MILK OF MAGNESIA PO SCH ×4 (09:24→21:29)
[2018-01-01] MEDS: LASIX IVP SCH (09:24)
[2018-01-01] MEDS: ZESTRIL TAB 10 MG PO SCH (09:25)
[2018-01-01] MEDS: COREG TAB 6.25 MG PO SCH ×2 (09:25→21:31)
--- NOTE | 2018-01-01 11:05 | RAD ---
History: Weakness Study: Semi upright portable AP chest Comparison: December 30 Findings: The left hemidiaphragm is obscured and there is left basilar retrocardiac density. There is mild vascular congestion. The heart size is mildly enlarged. Impression: Left lower lobe basilar consolidation or and/or atelectasis with possible pleural effusio n Mild cardiomegaly and vascular congestion Reported By:
--- NOTE | 2018-01-01 12:11 | NM ---
HISTORY: Weakness, elevated D-dimer Study: Ventilation-perfusion lung scan Comparison: None Technique: Ventilation scan was carried out using 30.5 mCi technetium 99 M DTPA aerosol. Perfusion sc an was carried out using intravenous injection of 5.6 mCi technetium 99 MAA. Findings: Ventilation scan demonstrated symmetric ventilation without significant ventilation defects. Perfusio n scan demonstrated symmetric profusion without significant perfusion defects. The probability of acu te pulmonary thromboembolic disease is felt to be low. IMPRESSION: Low probability acute pulmonary thromboembolic disease Reported By:
[2018-01-01] MEDS ORDERED: LEVAQUIN PREMIX IV 500 MG 500 MG/100 ML BAG IV ONE (13:42)
--- NOTE | 2018-01-01 13:46 | PCM.PROG ---
Progress Note - Progress Note for Day of Date of Exam: 01/01/18 - Subjective Subjective: 62 BF ADMITTED ON 12/31 WITH SOB. PT HAS NEGATIVE VQ SCAN. PT CONTINUES WITH DIMINISHED LUNG SOUNDS, GENERALIZED WEAKNESS. CXR WITH POSSIBLE PNEUMONIA. BLOOD AND SPUTUM CUTLURES COLLECTED, STARTED ON IV LEVAQUIN, JET NEBS. REPEAT AM LABS - Past Medical Family Social History Past Med/Fam/Surg Hx: No changes since H&P Allergies: Allergies strawberry Allergy (Verified 12/30/17 21:58) - Review of Systems ROS: No change since H&P - Vital Signs and I&O's Vital Signs: Temperature 97.8 F Pulse Rate [Apical] 76 Pulse Rate 95 Respiratory Rate 18 Blood Pressure [Right Arm] 136/94 Blood Pressure [Left Arm] 128/82 Blood Pressure 167/111 O2 Sat by Pulse Oximetry 94 Intake and Output: Intake & Output 12/30/17 12/31/17 01/01/18 01/02/18 11:59 11:59 11:59 11:59 Intake Total 100 / 100 1590 / 1590 Output Total 2350 / 2350 2975 / 2975 Balance -2250 / -2250 -1385 / -1385 - Physical Exam Oriented: Normal Eyes: Normal Ear: Normal Nose: Normal Throat: Normal Respiratory: Diminished Cardiovascular: Normal. negative: S3, S4, Murmur : Normal Auscultation: Bowel Sounds: Normal Tenderness: Diffuse, Mild. negative: Rebound, Guarding, Rigidity Skin: Normal Musculoskeletal: Normal Psychiatric: Normal Mood Description: Calm Affect: Normal Speech Pattern: Clear, Appropriate - Laboratory and Diagnostics Result Diagrams: 01/01/18 04:15 01/01/18 04:15 Labs: Laboratory WBC 3.9 X10^3/uL (3.6-10.0) 01/01/18 04:15 RBC 4.87 X10^6/uL (3.5-5.4) 01/01/18 04:15 Hgb 12.2 g/dL (12.0-16.0) 01/01/18 04:15 Hct 37.9 % (36.0-47.0) 01/01/18 04:15 MCV 77.8 fL (80.0-100.0) L 01/01/18 04:15 MCH 25.0 pg (27.0-34.0) L 01/01/18 04:15 MCHC 32.2 g/dL (33.0-35.0) L 01/01/18 04:15 RDW 17.0 % (11.6-16.5) H 01/01/18 04:15 Plt Count 121 X10^3/uL (150.0-450.0) L 01/01/18 04:15 Plt Count Comment Decreased (ADEQUATE) A 01/01/18 04:15 MPV 10.7 fL (7.4-11.0) 01/01/18 04:15 Neut % (Auto) 56.8 % (42.0-75.0) 01/01/18 04:15 Lymph % (Auto) 33.4 % (21.0-51.0) 01/01/18 04:15 [place] % (Auto) 7.3 % (0.0-13.0) 01/01/18 04:15 Eos % (Auto) 1.7 % (0.9-2.9) 01/01/18 04:15 Baso % (Auto) 0.8 % (0.2-1.0) 01/01/18 04:15 Neut # (Auto) 2.2 x10^3/uL (2.2-4.8) 01/01/18 04:15 Lymph # (Auto) 1.3 X10^3/uL (1.3-2.9) 01/01/18 04:15 [place] # (Auto) 0.3 x10^3/uL (0.3-0.8) 01/01/18 04:15 Eos # (Auto) 0.1 x10^3/uL (0.0-0.2) 01/01/18 04:15 Baso # (Auto) 0.0 X10^3/uL (0.0-0.1) 01/01/18 04:15 Absolute Nucleated RBC 0.1 /100WBC 01/01/18 04:15 Giant Platelets Rare 12/31/17 08:52 Plt Morphology Comment Normal (NORMAL) 01/01/18 04:15 RBC Morphology Abnormal (NORMAL) A 01/01/18 04:15 Hypochromasia 1+ A 01/01/18 04:15 INR Target Range - 09/05/18 22:08 INR 1.05 (0.8-1.3) 12/30/17 22:08 APTT 28.6 SECONDS (22.9-36.5) 12/30/17 22:08 PTT Comment - 12/30/17 22:08 D-Dimer 939 ng/mL (0-400) H* 12/30/17 22:08 Sample Site Right brachial 12/30/17 23:09 ABG pH 7.440 (7.35-7.45) 12/30/17 23:09 ABG pCO2 36.0 mmHg (35.0-45.0) 12/30/17 23:09 ABG pO2 60.0 mmHg (80.0-100.0) L 12/30/17 23:09 ABG HCO3 24.5 mmol/L (22-26) 12/30/17 23:09 ABG O2 Saturation 92.0 % (90-100) 12/30/17 23:09 ABG Base Excess 0.6 mmol/L (-2.0-2.0) 12/30/17 23:09 Mikhail Test Pos 12/30/17 23:09 A-a Gradient 45.0 mmHg 12/30/17 23:09 FiO2 21 12/30/17 23:09 Blood Gas Comments María well jts 12/30/17 23:09 Sodium 142 mmol/L (136-145) 01/01/18 04:15 Corrected Sodium 143 mmol/L (136-145) 01/01/18 04:15 Potassium 4.1 mmol/L (3.5-5.1) 01/01/18 04:15 Chloride 103 mmol/L (98-107) 01/01/18 04:15 Carbon Dioxide 34.5 mmol/L (21-32) H 01/01/18 04:15 BUN 25 mg/dL (7-18) H 01/01/18 04:15 Creatinine 1.40 mg/dL (0.55-1.02) H 01/01/18 04:15 Est GFR (MDRD) Af Amer 49 (>60) L 01/01/18 04:15 Est GFR (MDRD) Non-Af 41 (>60) L 01/01/18 04:15 Glucose 145 mg/dL (65-99) H 01/01/18 04:15 Calcium 9.1 mg/dL (8.5-10.1) 01/01/18 04:15 Corrected Calcium TNP 01/01/18 04:15 Magnesium 2.1 mg/dL (1.7-2.9) 12/30/17 22:08 Total Bilirubin 0.70 mg/dL (0.2-1.0) 01/01/18 04:15 AST 18 Units/L (15-37) 01/01/18 04:15 ALT 26 Units/L (12-78) 01/01/18 04:15 Alkaline Phosphatase 55 Units/L (46-116) 01/01/18 04:15 Creatine Kinase 47 Units/L (26-192) 12/31/17 08:30 CK-MB (CK-2) < 1.0 ng/mL (0-4.0) 12/31/17 08:30 CK/CKMB % Calc 2.1 % (<4) 12/31/17 08:30 Troponin I 0.04 ng/mL (0-1.5) 12/31/17 08:30 Total Protein 7.4 g/dL (6.4-8.2) 01/01/18 04:15 Albumin 3.5 g/dL (3.4-5.0) 01/01/18 04:15 Globulin 3.9 g/dL (2.5-4.5) 01/01/18 04:15 Albumin/Globulin Ratio 0.9 Ratio (1.1-2.1) L 01/01/18 04:15 Specimen Type Catherized urine 12/30/17 23:31 Urine Color Yellow (YELLOW) 12/30/17 23: Urine Appearance Clear (CLEAR) 12/30/17 23:31 Urine pH 5.0 (5.0 - 8.0) 12/30/17 23:31 Ur Specific [place] 1.020 (1.000-1.030) 12/30/17 23:31 Urine Protein 2+ (NEGATIVE) 12/30/17 23: Urine Glucose (UA) Negative (NEGATIVE) 12/30/17 23: Urine Ketones Negative (NEGATIVE) 12/30/17 23:31 Urine Occult Blood Negative (NEGATIVE) 12/30/17 23: Urine Nitrite Negative (NEGATIVE) 12/30/17 23: Urine Bilirubin Negative (NEGATIVE) 12/30/17 23:31 Urine Urobilinogen 2+ (NORMAL) 12/30/17 23:31 Ur Leukocyte Esterase Negative (NEGATIVE) 12/30/17 23:31 Urine RBC None seen /HPF (NONE SEEN) 12/30/17 23:31 Urine WBC 0-2 /HPF (NONE SEEN) 12/30/17 23:31 Ur Squamous Epith Cells Rare /HPF (NEGATIVE) 12/30/17 23:31 Urine Bacteria Negative /HPF (NEGATIVE) 12/30/17 23:31 Ur Culture Indicated? No/not indicated 12/30/17 23:31 - Plan (1) Pneumonia Status: Acute Qualifiers: Pneumonia type: due to unspecified organism Laterality: right Lung location: middle lobe of lung Qualified Code(s): J18.1 - Lobar pneumonia, unspecified organism Plan: RESP THERAPY, IV ATBX, BLOOD AND SPUTUM CULTURE. CONTINUE CURRENT MEDICATION, IV LEVAQUIN. BP CONTROL. REPEAT AM LABS, CXR (2) Diabetes mellitus Status: Acute (3) CHF (congestive heart failure) Status: Acute
[2018-01-01] MEDS ORDERED: SALINE 3% 15 ML NEB TX NEB ONE (14:06)
[2018-01-01] MEDS ORDERED: PREVNAR 13 IM ONE (14:27)
[2018-01-01] MEDS: DUONEB 0.5 MG/3 MG NEB SCH ×2 (16:51→20:05)
[2018-01-02] MEDS: DUONEB 0.5 MG/3 MG NEB SCH ×6 (00:33→20:01)
[2018-01-02 05:49] LABS: BASOPHILS % (AUTO) 0.7 % (0.2-1.0); EOSINOPHILS # (AUTO) 0.1 x10^3/uL (0.0-0.2); EOSINOPHILS % (AUTO) 2.1 % (0.9-2.9); HEMATOCRIT 37.8 % (36.0-47.0); HEMOGLOBIN 12.4 g/dL (12.0-16.0); LYMPHOCYTES # (AUTO) 1.1 X10^3/uL (1.3-2.9); LYMPHOCYTES % (AUTO) 35.3 % (21.0-51.0); MEAN CORPUSCULAR HEMOGLOBIN 25.3 pg (27.0-34.0); MEAN CORPUSCULAR HGB CONC 32.7 g/dL (33.0-35.0); MEAN CORPUSCULAR VOLUME 77.5 fL (80.0-100.0); MEAN PLATELET VOLUME 10.8 fL (7.4-11.0); MONOCYTES # (AUTO) 0.2 x10^3/uL (0.3-0.8); MONOCYTES % (AUTO) 7.6 % (0.0-13.0); NEUTROPHILS # (AUTO) 1.8 x10^3/uL (2.2-4.8); NEUTROPHILS % (AUTO) 54.3 % (42.0-75.0); PLATELET COUNT 128 X10^3/uL (150.0-450.0); RED BLOOD COUNT 4.88 X10^6/uL (3.5-5.4); RED CELL DISTRIBUTION WIDTH 16.5 % (11.6-16.5); WHITE BLOOD COUNT 3.2 X10^3/uL (3.6-10.0)
[2018-01-02 05:58] LABS: ALANINE AMINOTRANSFERASE 23 Units/L (12-78); ALBUMIN 3.4 g/dL (3.4-5.0); ALKALINE PHOSPHATASE 55 Units/L (46-116); ASPARTATE AMINO TRANSFERASE 13 Units/L (15-37); BLOOD UREA NITROGEN 30 mg/dL (7-18); CALCIUM 9.1 mg/dL (8.5-10.1); CARBON DIOXIDE 36.5 mmol/L (21-32); CHLORIDE 103 mmol/L (98-107); COR NA(FOR HYPERGLY) 144 mmol/L (136-145); CREATININE 1.43 mg/dL (0.55-1.02); SODIUM 142 mmol/L (136-145); TOTAL PROTEIN 7.5 g/dL (6.4-8.2); eGFR NON BLACK RACES 40 (>60)
[2018-01-02 06:17] LABS: PLATELET MORPHOLOGY COMMENT NORMAL (NORMAL)
[2018-01-02 06:18] LABS: HYPOCHROMASIA SLIGHT
[2018-01-02 06:58] VITALS: BMI 37.3
[2018-01-02] MEDS: LASIX IVP SCH (09:05)
[2018-01-02] MEDS: ASPIRIN EC 81 MG PO SCH (09:05)
[2018-01-02] MEDS: COREG TAB 6.25 MG PO SCH ×2 (09:06→20:42)
[2018-01-02] MEDS: MIRALAX POWDER (1 DOSE 17 G) PO SCH (09:06)
[2018-01-02] MEDS: COLACE CAP 100 MG PO SCH ×2 (09:06→20:42)
[2018-01-02] MEDS: MILK OF MAGNESIA PO SCH ×4 (09:06→20:42)
[2018-01-02] MEDS: ZESTRIL TAB 10 MG PO SCH (09:06)
--- NOTE | 2018-01-02 10:45 | PCM.PROG ---
Progress Note - Progress Note for Day of Date of Exam: 01/02/18 - Subjective Subjective: 62 BF ADMITTED ON 12/31 WITH SOB. PT HAS NEGATIVE VQ SCAN. PT CONTINUES WITH DIMINISHED LUNG SOUNDS, GENERALIZED WEAKNESS. CXR WITH POSSIBLE PNEUMONIA. BLOOD AND SPUTUM CUTLURES COLLECTED, STARTED ON IV LEVAQUIN, JET NEBS. ADDED ROBITUSSIN THIS AM AND XRAY TODAY, ENCOURAGE PT TO AMBULATE, HYDRATE REPEAT AM LABS - Past Medical Family Social History Past Med/Fam/Surg Hx: No changes since H&P Allergies: Allergies strawberry Allergy (Verified 12/30/17 21:58) - Review of Systems ROS: No change since H&P - Vital Signs and I&O's Vital Signs: Temperature 97.7 F Pulse Rate [Apical] 67 Pulse Rate 73 Respiratory Rate 20 Blood Pressure [Right Arm] 120/73 Blood Pressure [Left Arm] 136/87 Blood Pressure 167/111 O2 Sat by Pulse Oximetry 92 Intake and Output: Intake & Output 12/30/17 12/31/17 01/01/18 01/02/18 11:59 11:59 11:59 11:59 Intake Total 100 / 100 1590 / 1590 1180 / 1180 Output Total 2350 / 2350 2975 / 2975 900 / 900 Balance -2250 / -2250 -1385 / -1385 280 / 280 - Physical Exam Oriented: Normal Eyes: Normal Ear: Normal Nose: Normal Throat: Normal Respiratory: Diminished Cardiovascular: Normal. negative: S3, S4, Murmur : Normal Auscultation: Bowel Sounds: Normal Tenderness: Diffuse, Mild. negative: Rebound, Guarding, Rigidity Skin: Normal Musculoskeletal: Normal Psychiatric: Normal Mood Description: Calm Affect: Normal Speech Pattern: Clear, Appropriate - Laboratory and Diagnostics Result Diagrams: 01/02/18 04:30 01/02/18 04:30 Labs: 01/01/18 15:07 Sputum - Expectorated Sputum Sputum Culture - Preliminary 01/01/18 15:07 Sputum - Expectorated Sputum - Final Laboratory WBC 3.2 X10^3/uL (3.6-10.0) L 01/02/18 04:30 RBC 4.88 X10^6/uL (3.5-5.4) 01/02/18 04:30 Hgb 12.4 g/dL (12.0-16.0) 01/02/18 04:30 Hct 37.8 % (36.0-47.0) 01/02/18 04:30 MCV 77.5 fL (80.0-100.0) L 01/02/18 04:30 MCH 25.3 pg (27.0-34.0) L 01/02/18 04:30 MCHC 32.7 g/dL (33.0-35.0) L 01/02/18 04:30 RDW 16.5 % (11.6-16.5) 01/02/18 04:30 Plt Count 128 X10^3/uL (150.0-450.0) L 01/02/18 04:30 Plt Count Comment Decreased (ADEQUATE) A 01/02/18 04:30 MPV 10.8 fL (7.4-11.0) 01/02/18 04:30 Neut % (Auto) 54.3 % (42.0-75.0) 01/02/18 04:30 Lymph % (Auto) 35.3 % (21.0-51.0) 01/02/18 04:30 [place] % (Auto) 7.6 % (0.0-13.0) 01/02/18 04:30 Eos % (Auto) 2.1 % (0.9-2.9) 01/02/18 04:30 Baso % (Auto) 0.7 % (0.2-1.0) 01/02/18 04:30 Neut # (Auto) 1.8 x10^3/uL (2.2-4.8) L 01/02/18 04:30 Lymph # (Auto) 1.1 X10^3/uL (1.3-2.9) L 01/02/18 04:30 [place] # (Auto) 0.2 x10^3/uL (0.3-0.8) L 01/02/18 04:30 Eos # (Auto) 0.1 x10^3/uL (0.0-0.2) 01/02/18 04:30 Baso # (Auto) 0.0 X10^3/uL (0.0-0.1) 01/02/18 04:30 Absolute Nucleated RBC 0.2 /100WBC 01/02/18 04:30 Giant Platelets Rare 12/31/17 08:52 Plt Morphology Comment Normal (NORMAL) 01/02/18 04:30 RBC Morphology Abnormal (NORMAL) A 01/02/18 04:30 Hypochromasia Slight A 01/02/18 04:30 INR Target Range - 12/30/17 22:08 INR 1.05 (0.8-1.3) 12/30/17 22:08 APTT 28.6 SECONDS (22.9-36.5) 12/30/17 22:08 PTT Comment - 12/30/17 22:08 D-Dimer 939 ng/mL (0-400) H* 12/30/17 22:08 Sample Site Right brachial 12/30/17 23:09 ABG pH 7.440 (7.35-7.45) 12/30/17 23:09 ABG pCO2 36.0 mmHg (35.0-45.0) 12/30/17 23:09 ABG pO2 60.0 mmHg (80.0-100.0) L 12/30/17 23:09 ABG HCO3 24.5 mmol/L (22-26) 12/30/17 23:09 ABG O2 Saturation 92.0 % (90-100) 12/30/17 23:09 ABG Base Excess 0.6 mmol/L (-2.0-2.0) 12/30/17 23:09 Mikhail Test Pos 12/30/17 23:09 A-a Gradient 45.0 mmHg 12/30/17 23:09 FiO2 21 12/30/17 23:09 Blood Gas Comments María well jts 12/30/17 23:09 Sodium 142 mmol/L (136-145) 01/02/18 04:30 Corrected Sodium 144 mmol/L (136-145) 01/02/18 04:30 Potassium 4.3 mmol/L (3.5-5.1) 01/02/18 04:30 Chloride 103 mmol/L (98-107) 01/02/18 04:30 Carbon Dioxide 36.5 mmol/L (21-32) H 01/02/18 04:30 BUN 30 mg/dL (7-18) H 01/02/18 04:30 Creatinine 1.43 mg/dL (0.55-1.02) H 01/02/18 04:30 Est GFR (MDRD) Af Amer 48 (>60) L 01/02/18 04:30 Est GFR (MDRD) Non-Af 40 (>60) L 01/02/18 04:30 Glucose 173 mg/dL (65-99) H 01/02/18 04:30 Calcium 9.1 mg/dL (8.5-10.1) 01/02/18 04:30 Corrected Calcium TNP 01/02/18 04:30 Magnesium 2.1 mg/dL (1.7-2.9) 12/30/17 22:08 Total Bilirubin 0.70 mg/dL (0.2-1.0) 01/02/18 04:30 AST 13 Units/L (15-37) L 01/02/18 04:30 ALT 23 Units/L (12-78) 01/02/18 04:30 Alkaline Phosphatase 55 Units/L (46-116) 01/02/18 04:30 Creatine Kinase 47 Units/L (26-192) 12/31/17 08:30 CK-MB (CK-2) < 1.0 ng/mL (0-4.0) 12/31/17 08:30 CK/CKMB % Calc 2.1 % (<4) 12/31/17 08:30 Troponin I 0.04 ng/mL (0-1.5) 12/31/17 08:30 Total Protein 7.5 g/dL (6.4-8.2) 01/02/18 04:30 Albumin 3.4 g/dL (3.4-5.0) 01/02/18 04:30 Globulin 4.1 g/dL (2.5-4.5) 01/02/18 04:30 Albumin/Globulin Ratio 0.8 Ratio (1.1-2.1) L 01/02/18 04:30 Specimen Type Catherized urine 12/30/17 23:31 Urine Color Yellow (YELLOW) 12/30/17 23:31 Urine Appearance Clear (CLEAR) 12/30/17 23:31 Urine pH 5.0 (5.0 - 8.0) 12/30/17 23:31 Ur Specific Maxwell 1.020 (1.000-1.030) 12/30/17 23:31 Urine Protein 2+ (NEGATIVE) 12/30/17 23:31 Urine Glucose (UA) Negative (NEGATIVE) 12/30/17 23:31 Urine Ketones Negative (NEGATIVE) 12/30/17 23:31 Urine Occult Blood Negative (NEGATIVE) 12/30/17 23:31 Urine Nitrite Negative (NEGATIVE) 12/30/17 23:31 Urine Bilirubin Negative (NEGATIVE) 12/30/17 23:31 Urine Urobilinogen 2+ (NORMAL) 12/30/17 23:31 Ur Leukocyte Esterase Negative (NEGATIVE) 12/30/17 23:31 Urine RBC None seen /HPF (NONE SEEN) 12/30/17 23:31 Urine WBC 0-2 /HPF (NONE SEEN) 12/30/17 23:31 Ur Squamous Epith Cells Rare /HPF (NEGATIVE) 12/30/17 23:31 Urine Bacteria Negative /HPF (NEGATIVE) 12/30/17 23:31 Ur Culture Indicated? No/not indicated 12/30/17 23:31 - Plan (1) Pneumonia Status: Acute Qualifiers: Pneumonia type: due to unspecified organism Laterality: right Lung location: middle lobe of lung Qualified Code(s): J18.1 - Lobar pneumonia, unspecified organism Plan: RESP THERAPY, IV ATBX, BLOOD AND SPUTUM CULTURE. CONTINUE CURRENT MEDICATION, IV LEVAQUIN. BP CONTROL. REPEAT AM LABS, CXR (2) Diabetes mellitus Status: Acute (3) CHF (congestive heart failure) Status: Acute
--- NOTE | 2018-01-02 11:30 | RAD ---
Two-view chest x-ray Clinical indication: Pneumonia, shortness of breath Comparison: 01/01/2018. Findings: There is evidence of severe cardiomegaly. Central vascular congestion and perihilar edema p attern have improved in the interim. There are no consolidating infiltrates identified. Right costoph renic angle is sharp and well preserved. Left diaphragm is no longer but obscured. No significant lef t-sided pleural effusion is demonstrated. Impression: Cardiomegaly with multi chamber dilation. Improved vascular congestion and resolving maximiliano hilar edema. Reported By:
[2018-01-02] MEDS: ROBITUSSIN DM PO SCH ×3 (13:46→20:42)
[2018-01-03 05:43] LABS: BASOPHILS % (AUTO) 0.8 % (0.2-1.0); EOSINOPHILS # (AUTO) 0.1 x10^3/uL (0.0-0.2); EOSINOPHILS % (AUTO) 2.5 % (0.9-2.9); HEMATOCRIT 37.1 % (36.0-47.0); HEMOGLOBIN 11.9 g/dL (12.0-16.0); LYMPHOCYTES # (AUTO) 1.5 X10^3/uL (1.3-2.9); LYMPHOCYTES % (AUTO) 42.6 % (21.0-51.0); MEAN CORPUSCULAR HEMOGLOBIN 25.1 pg (27.0-34.0); MEAN CORPUSCULAR VOLUME 78.3 fL (80.0-100.0); MEAN PLATELET VOLUME 10.9 fL (7.4-11.0); MONOCYTES # (AUTO) 0.3 x10^3/uL (0.3-0.8); MONOCYTES % (AUTO) 9.4 % (0.0-13.0); NEUTROPHILS # (AUTO) 1.6 x10^3/uL (2.2-4.8); NEUTROPHILS % (AUTO) 44.7 % (42.0-75.0); PLATELET COUNT 123 X10^3/uL (150.0-450.0); RED BLOOD COUNT 4.73 X10^6/uL (3.5-5.4); RED CELL DISTRIBUTION WIDTH 16.4 % (11.6-16.5); WHITE BLOOD COUNT 3.6 X10^3/uL (3.6-10.0)
[2018-01-03 05:59] LABS: ALBUMIN 3.3 g/dL (3.4-5.0); CARBON DIOXIDE 32.8 mmol/L (21-32); COR CA(FOR HYPOALB) 9.6 mg/dL (8.5-10.1); CREATININE 1.33 mg/dL (0.55-1.02); TOTAL PROTEIN 7.1 g/dL (6.4-8.2)
[2018-01-03 06:25] LABS: PLATELET MORPHOLOGY COMMENT NORMAL (NORMAL)
[2018-01-03 06:26] LABS: HYPOCHROMASIA SLIGHT
[2018-01-03] MEDS: ASPIRIN EC 81 MG PO SCH (08:40)
[2018-01-03] MEDS: COREG TAB 6.25 MG PO SCH ×2 (08:41→20:28)
[2018-01-03] MEDS: ROBITUSSIN DM PO SCH ×4 (08:41→20:29)
[2018-01-03] MEDS: COLACE CAP 100 MG PO SCH ×2 (08:41→20:28)
[2018-01-03] MEDS: MIRALAX POWDER (1 DOSE 17 G) PO SCH (08:41)
[2018-01-03] MEDS: MILK OF MAGNESIA PO SCH ×4 (08:41→20:29)
[2018-01-03] MEDS: ZESTRIL TAB 10 MG PO SCH (08:42)
[2018-01-03] MEDS: DUONEB 0.5 MG/3 MG NEB SCH ×4 (08:45→20:56)
[2018-01-04 05:18] LABS: BASOPHILS % (AUTO) 1.4 % (0.2-1.0); EOSINOPHILS # (AUTO) 0.1 x10^3/uL (0.0-0.2); EOSINOPHILS % (AUTO) 2.7 % (0.9-2.9); HEMATOCRIT 37.1 % (36.0-47.0); HEMOGLOBIN 11.9 g/dL (12.0-16.0); LYMPHOCYTES # (AUTO) 1.5 X10^3/uL (1.3-2.9); LYMPHOCYTES % (AUTO) 41.6 % (21.0-51.0); MEAN CORPUSCULAR HGB CONC 32.1 g/dL (33.0-35.0); MEAN CORPUSCULAR VOLUME 78.1 fL (80.0-100.0); MEAN PLATELET VOLUME 10.4 fL (7.4-11.0); MONOCYTES # (AUTO) 0.3 x10^3/uL (0.3-0.8); MONOCYTES % (AUTO) 9.3 % (0.0-13.0); NEUTROPHILS # (AUTO) 1.6 x10^3/uL (2.2-4.8); PLATELET COUNT 124 X10^3/uL (150.0-450.0); RED BLOOD COUNT 4.76 X10^6/uL (3.5-5.4); RED CELL DISTRIBUTION WIDTH 16.8 % (11.6-16.5); WHITE BLOOD COUNT 3.6 X10^3/uL (3.6-10.0)
[2018-01-04 05:36] LABS: ALBUMIN 3.1 g/dL (3.4-5.0); CALCIUM 8.9 mg/dL (8.5-10.1); CARBON DIOXIDE 32.6 mmol/L (21-32); COR CA(FOR HYPOALB) 9.6 mg/dL (8.5-10.1); CREATININE 1.23 mg/dL (0.55-1.02); TOTAL PROTEIN 6.9 g/dL (6.4-8.2)
[2018-01-04 05:59] LABS: HYPOCHROMASIA SLIGHT; PLATELET MORPHOLOGY COMMENT NORMAL (NORMAL)
--- NOTE | 2018-01-04 08:18 | RAD ---
HISTORY: Pneumonia, shortness of breath Study: Single view chest Comparison: 01/02/2018 Findings: Single view is submitted. Stable cardiomegaly with chronic central pulmonary vascular congestion, wit hout alveolar edema. No pneumothorax or effusion identified. The soft tissues are intact. IMPRESSION: 1. Stable cardiomegaly and vascular congestion without alveolar edema. Reported By:
[2018-01-04] MEDS ORDERED: LASIX IVP ONE (08:24)
[2018-01-04] MEDS: DUONEB 0.5 MG/3 MG NEB SCH ×3 (08:38→16:24)
[2018-01-04] MEDS: COLACE CAP 100 MG PO SCH (09:39)
[2018-01-04] MEDS: ZESTRIL TAB 10 MG PO SCH ×2 (09:39→09:42)
[2018-01-04] MEDS: MIRALAX POWDER (1 DOSE 17 G) PO SCH (09:39)
[2018-01-04] MEDS: COREG TAB 6.25 MG PO SCH ×2 (09:39→09:42)
[2018-01-04] MEDS: MILK OF MAGNESIA PO SCH ×3 (09:39→18:20)
[2018-01-04] MEDS: ROBITUSSIN DM PO SCH ×3 (09:39→18:20)
[2018-01-04] MEDS: ASPIRIN EC 81 MG PO SCH (09:40)
[2018-01-04] MEDS ORDERED: LEVAQUIN PREMIX IV 500 MG 500 MG/100 ML BAG IV SCH (10:00)
[2018-01-04] MEDS ORDERED: NS 500 ML IV 500 ML IV ONE (10:35)
[2018-01-04 18:17] VITALS: BP 116/80
== END 2018-01-04 18:05 | disposition home or self-care (01) | DRG 195 ==
LOC: MED/SURG 21:47 → ER 21:47 → MED/SURG 12-31 01:04
PROVIDERS: ADMIT Internal Medicine; ATTEND Internal Medicine
DX: I50.9 Heart failure, unspecified; G47.33 Obstructive sleep apnea (adult) (pediatric); E86.0 Dehydration; E87.6 Hypokalemia; R10.84 Generalized abdominal pain; E11.65 Type 2 diabetes mellitus with hyperglycemia; Z23 Encounter for immunization; R53.1 Weakness; R79.1 Abnormal coagulation profile; K59.09 Other constipation; J18.8 Other pneumonia, unspecified organism; R94.31 Abnormal electrocardiogram [ECG] [EKG]; R06.02 Shortness of breath; E78.2 Mixed hyperlipidemia
CPT/HCPCS: 36415; 36600; 51702; 71010; 71020; 71045; 71046; 74000; 74018; 74176; 78582; 80053; 81001; 82550; 82553; 82803; 83735; 84484; 85025; 85378; 85610; 85730; 87040; 87070; 87205; 93005; 93010; 94640; 94760; 96365; 96374; 99231; 99284; A4216; A4222; G0378; J1940; J1956; J7040; J7050; J7620

== ENCOUNTER 2018-02-06 00:35 | Inpatient (IN) ==
[2018-02-06] MEDS ORDERED: SOLU-Medrol 125 MG VIAL IVP ONE (01:39)
[2018-02-06] MEDS ORDERED: DUONEB 0.5 MG/3 MG NEB ONE (01:39)
[2018-02-06] MEDS ORDERED: SOLU-Medrol 125 MG VIAL ONE (01:44)
--- NOTE | 2018-02-06 01:44 | DR.GENAD ---
HPI - PCP Primary Care Physician: JAYJAY ISNGH - Complaint/Symptoms Chief Complaint Doctors Comments: Patient complains of SOB, cough, wheezing for the past 24 hours getting progressive worst. Patient states the wheezing went away but came back today and states she cannot lay down because she could not catch her breath. States she took a breathing treatment with albuterol this evening and tonight without improvement. She denies tobacco or alcohol usage. States she is a patient of Dr. Walter's sister. She denies chest pain, nausea or vomiting. Chief Complaint:: SHORTNESS OF BREATH O/S 1999, SINCE FELT BETTER BUT SHORTNESS OF BREATH INCREASED IN THE LAST 30 MINS. PATIENT DENIES ANY PAIN. Self Treatment fo Chief Complaint: NONE - Nurses notes reviewed Nurses Notes Review: Yes - Source History Provided: Patient - Mode of Arrival Mode of Arrival: Ambulatory - Timing Onset of Chief Complaint: 02/05/18 Came on: Gradually - Duration Duration: Intermittent How lon Duration: Days - Location Location: SOB - Severity Severity: Mild - Modifying Factors Worsens:: nothing Improves:: nothing PMH - PMH Past Medical History: Yes Past Medical History: Hypertension, Dyslipidemia, Diabetes, Sleep Apnea Past Surgical History: Yes Surgical History: Angioplasty/Stents, , [employer] Surgery - Family History History of Family Medical Conditions: Yes Family Medical History: Diabetes Mellitus, [place], Coronary Artery Disease, Hypertension - Social History Does patient currently use any type of tobacco product: No Have you used tobacco products in the last 12 months: No Type of Tobacco Use: None Alcohol Use: Rarely Do you use any recreational Drugs:: No Lives Where: Home - infectious screening Have you traveled outside the country in the last 6 months?: No Isolation: Standard ROS - Review of Systems Constitutional: No Symptoms Reported. negative: See HPI, Chills, Diaphoresis, Fever, Malaise, Weakness, Irritable, Fatigue, Loss of Appetite, Other Eyes: No Symptoms Reported ENTM: No Symptoms Reported. negative: See HPI, Ear Pain, Ear Discharge, Pulling on Ears, Hearing Loss, Nose Pain, Nose Discharge, Epistaxis, Nose Congestion, Mouth Pain, Mouth Swelling, Loose Teeth, Drooling, Throat Pain, Throat Swelling, Ear Foreign Body, Tooth/Dental Pain Respiratoy: Short of Breath, Wheezing. negative: No Symptoms Reported, See HPI, Productive Cough, Non-Productive Cough, Moist Cough, Dry Cough, Hacking Cough, Barking Cough, Brassy Cough, Orthopnea, Stridor, Hemoptysis, Other Cardiovascular: No Symptoms Reported, Edema. negative: See HPI, Chest Pain, Palpitations, Syncope, Cyanosis, Skin Mottling, Other Gastrointestinal/Abdominal: No Symptoms Reported. negative: See HPI, Abdominal Pain, Constipation, Diarrhea, Nausea, Vomiting, Food Intolerance, Other Genitourinary: No Symptoms Reported. negative: See HPI, Discharge, Dysuria, Frequency, Hematuria, Pain, Bleeding, Other Neurological: No Symptoms Reported, See HPI Musculoskeletal: No Symptoms Reported Integumentary: No Symptoms Reported Hematologic/Lymphatic: No Symptoms Reported Endocrine: No Symptoms Reported Psychiatric: No Symptoms Reported. negative: See HPI, Anxiety, Depression, Hallucinations, Excessive crying, Suicidal, Other PE - General Limitations: No Limitations General Appearance: Alert, In No Apparent Distress (slight), Obese - Head Head Exam: Normal Inspection, Atraumatic, Normocephalic - Eyes Eye exam: Normal Appearance, PERRL, EOMI. negative: Scleral Icterus, Conjunctival Injection, Nystagmus, Miosis, Mydrasis, Periorbital Swelling, Periorbital Tenderness, Other - ENT ENT Exam: Normal Exam, Normal Oropharynx, Normal External Ear Exam, Mucous Membranes Moist, TM's Normal Bilaterally External Ear Exam: Normal External Inspection TM/Canal Exam: Bilateral Normal Nose Exam: Normal Nose Exam Mouth Exam: Normal Inspection. negative: Drooling, Trismus, Lip Swelling, Tongue Elevation, Tongue Swelling, Laceration, Other Throat Exam: Normal Inspection. negative: Tonsillar Erythema, Tonsillomegaly, Tonsillar Exudate, R Peritonsillar Mass, L Peritonsillar Mass, Muffled Voice, Other - Neck Neck Exam: Normal Inspection, Full ROM, Trachea Midline. negative: Tenderness, Meningismus, Lymphadenopathy, Thyromegaly, Other - Chest Chest Inspection: Normal Inspection, Symmetric Chest Wall Rise - Respiratory Respiratory Exam: Normal Lung Sounds Bilat, Prolonged Expiratory Phase Respiratory Exam: Bilateral Wheezing, Bilateral Decreased Breath Sounds - Cardiovascular Cardiovascular Exam: Regular Rate, Normal Rhythm, Normal Heart Sounds - Abdominal Exam Abdominal Exam: Normal Inspection, Normal Bowel Sounds, Soft. negative: Distention, Tenderness, Guarding, Rebound, Rigidity, Dimnished Bowel Sounds, Hyperactive Bowel Sounds, Hypoactive Bowel Sounds, Organomegaly, Trauma, Incision, Ascites, Mass, Bruit, Pulsatile Mass, Hernia, Other Abdominal Tenderness: negative: RUQ, RLQ, LUQ, LLQ, Epigastrium, Suprapubic, Diffuse, Mild, Moderate, Severe, Other - Extremities Extremities Exam: Normal Inspection, Full ROM, Normal Capillary Refill. negative: Tenderness, Edema, Joint Swelling, Calf Tenderness, Other - Back Back Exam: Normal Inspection, Full ROM, Tenderness. negative: (R) CVA Tenderness, (L) CVA Tenderness, Muscle Spasm, Paraspinal Tenderness, Vertebral Tenderness, Rashes, (R) Sciatic Notch Tenderness, (L) Sciatic Notch Tendern, (R) Straight Leg Raise, (L) Straight Leg Raise, Other - Neurologic Neurological Exam: Alert, Oriented X3, CN II-XII Intact, Normal Gait, Reflexes Normal - Psychiatric Psychiatric Exam: Normal Affect, Normal Mood - Skin Skin Exam: Warm, Dry, Intact, Normal Color - Vital Signs Vitals: Temperature 97.3 F Pulse Rate 86 Respiratory Rate 20 Blood Pressure [Right Arm] 116/80 Blood Pressure [Left Arm] 136/87 Blood Pressure 130/87 O2 Sat by Pulse Oximetry 97 Course - Reevaluation 1st: Improved - Consultation Call Returned: 03:54 (Dr. Somers to admit) - Education/Counseling Education/Counseling: Patient, Family Educated On: Treatment, Diagnosis, Needs for Follow Up ROR - Labs Reviewed Laboratory Results Reviewed?: Yes (All labs and x-ray results reviewed and discussed with patient) Result Diagrams: 02/06/18 01:50 02/06/18 01:50 - XRAY XRAY Interpreted by: Radiologist (CXR: Cardiomegaly, pulmonary vascular congestion and mild pulmonary interstitial edema likely CHF/volume overload) - Diagnosis Discharge Problem: COPD with acute exacerbation, Pulmonary edema, Diabetes mellitus, Chronic kidney disease (CKD) Congestive heart failure, acute Qualifiers: Heart failure type: unspecified Qualified Code(s): I50.9 - Heart failure, unspecified - Discharge Plan Disposition: ADMITTED INPATIENT Condition: Stable
[2018-02-06 02:13] LABS: CALCIUM 8.9 mg/dL (8.5-10.1); CARBON DIOXIDE 25.2 mmol/L (21-32); CREATININE 1.4 mg/dL (0.55-1.02)
[2018-02-06 02:25] LABS: BASOPHILS % (AUTO) 0.8 % (0.2-1.0); HEMATOCRIT 37.1 % (36.0-47.0); HEMOGLOBIN 11.9 g/dL (12.0-16.0); LYMPHOCYTES # (AUTO) 1.5 X10^3/uL (1.3-2.9); LYMPHOCYTES % (AUTO) 33.1 % (21.0-51.0); MEAN CORPUSCULAR HEMOGLOBIN 25.3 pg (27.0-34.0); MEAN CORPUSCULAR HGB CONC 32.1 g/dL (33.0-35.0); MEAN CORPUSCULAR VOLUME 78.8 fL (80.0-100.0); MEAN PLATELET VOLUME 10.5 fL (7.4-11.0); MONOCYTES # (AUTO) 0.2 x10^3/uL (0.3-0.8); MONOCYTES % (AUTO) 5.5 % (0.0-13.0); NEUTROPHILS # (AUTO) 2.6 x10^3/uL (2.2-4.8); NEUTROPHILS % (AUTO) 59.6 % (42.0-75.0); PLATELET COUNT 131 X10^3/uL (150.0-450.0); RED BLOOD COUNT 4.71 X10^6/uL (3.5-5.4); RED CELL DISTRIBUTION WIDTH 16.8 % (11.6-16.5); WHITE BLOOD COUNT 4.4 X10^3/uL (3.6-10.0)
[2018-02-06 02:28] LABS: PLATELET MORPHOLOGY COMMENT NORMAL (NORMAL)
--- NOTE | 2018-02-06 02:30 | RAD ---
AP chest Indication: Shortness breath with wheezing Comparison: 01/04/2018 Findings: Heart size remains enlarged. Pulmonary vascular congestion is noted however there is slight ly increased bibasilar increased interstitial opacities most consistent with mild interstitial edema/ CHF. No large effusion or pneumothorax. No acute osseous abnormality. Impression: Cardiomegaly, pulmonary vascular congestion and mild pulmonary interstitial edema likely in the setting of CHF/volume overload. Reported By:
[2018-02-06] MEDS ORDERED: LASIX IVP ONE ×3 (02:43→11:31)
[2018-02-06 04:25] LABS: BILIRUBIN,URINE 1+ (NEGATIVE); BLOOD/HEMOGLOBIN,URINE NEGATIVE (NEGATIVE); GLUCOSE, URINE NEGATIVE (NEGATIVE); KETONES,URINE NEGATIVE (NEGATIVE); LEUKOCYTE ESTERASE ,URINE 1+ (NEGATIVE); NITRITES,URINE NEGATIVE (NEGATIVE); PROTEIN,URINE 2+ (NEGATIVE); UROBILINOGEN,URINE 1+ (NORMAL)
[2018-02-06 04:37] LABS: APPEARANCE,URINE HAZY (CLEAR); COLOR,URINE AMBER (YELLOW)
[2018-02-06 04:38] LABS: BACTERIA,URINE TRACE /HPF (NEGATIVE); HYALINE CASTS, URINE FEW /LPF (NEGATIVE); MUCUS,URINE MANY /HPF (NEGATIVE); RBC,URINE NONE SEEN /HPF (NONE SEEN); SQUAMOUS EPITHELIAL CELL,UR MANY /HPF (NEGATIVE)
[2018-02-06] MEDS: DUONEB 0.5 MG/3 MG NEB SCH ×5 (05:20→21:00)
[2018-02-06 05:31] VITALS: BMI 38.7
[2018-02-06] MEDS: LEVAQUIN PREMIX IV 250 MG 250 MG/50 ML BAG IV SCH (09:24)
--- NOTE | 2018-02-06 11:25 | DR.H&P ---
H&P - History & Physical for Day of: H&P Date: 02/06/18 - Chief Complaint Chief Complaint: SOB, WHEEZING - History of Present Illness History of Present Illness: 62 BF ER ADMISSION AFTER PRESENTING WITH CO SOB AND WHEEZING, WORSE OVER LAST "FEW DAYS" PT STATES SHE HAS SEEN [facility] [place] FOR DR KATHLEEN WITH BRONCHITIS SYMPTOMS, HAS NEBULIZER AT HOME. PT HAS HX OF CAD, SEES DR JONES [place]. LAST CATH APR 2017, HAD CATH 2009 WITH STENT PLACEMENT. PT HAS PMH OF HTN, CAD, CHF, DM, OA. PT CXR IN ER REVEALED POSSIBLE CHF, VOLUME OVERLOAD. PT ADMITTED FOR TREATMENT OF SOB, CHF. - Past Medical History Past Medical History: Arthritis, Coronary Artery Disease, Diabetes, Dyslipidemia, Hypertension, Sleep Apnea - Past Surgical History Surgical History: - Family History Family Medical History: Diabetes Mellitus, [place], Coronary Artery Disease, Sudden Cardiac , Hypertension - Social History Does patient currently use any type of tobacco product: Yes Have you used tobacco products in the last 12 months: Yes Type of Tobacco Use: Smokeless How many years tobacco product used: 20 Does any household member use tobacco: Yes Alcohol Use: None Drug Use: None - Medications Home Medications: strawberry Allergy (Verified 02/06/18 01:29) - Review of Systems Constitutional: Weakness Eyes: No Symptoms Reported ENT: No Symptoms Reported Respiratory: Shortness of Breath, Wheezing Cardiovascular: Edema. denies: Chest Pain Gastrointestinal: No Symptoms Reported Genitourinary: No Symptoms Reported Musculoskeletal: No Symptoms Reported Skin: No Symptoms Reported Neurological: No Symptoms Reported - Physical Exam Vital Signs: Temperature 98.7 F Pulse Rate [Brachial] 82 Pulse Rate 88 Respiratory Rate 18 Blood Pressure [Right Arm] 141/91 Blood Pressure [Left Arm] 161/102 Blood Pressure 130/87 O2 Sat by Pulse Oximetry 96 Oriented: Normal Eyes: Normal Ear: Normal Nose: Normal Throat: Normal Respiratory: RLL Diminished, LLL Diminished Cardiovascular: Normal. negative: Murmur : Normal Auscultation: Bowel Sounds: Normal Palpation: Normal Tenderness: Normal Skin: Normal Musculoskeletal: Back:Lumbar Psychiatric: Normal Mood Description: Calm Speech Pattern: Clear, Appropriate - Assessment/Plan (1) SOB (shortness of breath) Status: Acute Plan: ADMIT, RESP THERAPY, SUPPLEMENTAL O2. JET NEBS, PT GIVEN IV SOLU MEDROL AND IV LEVAQUIN IN ED. CXR ON ADMISSION, REPEAT Q AM. EKG, ABG THIS AM. RESUME ASA AND COREG, IV LASIX, STRICT I & OS. OBTAIN LAST CATH REPORT FROM [facility]TGOM[facility] (2) CAD (coronary artery disease) Status: Acute (3) Hypertension Status: Acute (4) Congestive heart failure Qualifiers: Heart failure type: unspecified Heart failure chronicity: acute on chronic Qualified Code(s): I50.9 - Heart failure, unspecified Status: Acute (5) Reactive airway disease with wheezing Qualifiers: Asthma severity: mild Asthma persistence: intermittent Asthma complication type: with acute exacerbation Qualified Code(s): J45.21 - Mild intermittent asthma with (acute) exacerbation Status: Acute - Allergies Allergies/Adverse Reactions: Allergies Allergy/AdvReac Type Severity Reaction Status Date / Time strawberry Allergy Verified 02/06/18 01:29
[2018-02-06] MEDS: HumuLIN R SUBCUT PRN ×4 (11:46→21:27)
[2018-02-06 12:44] LABS: ABG BASE EXCESS 0.7 mmol/L (-2.0-2.0); ABG HCO3 25.4 mmol/L (22-26)
[2018-02-06 12:45] LABS: ABG ALLEN TEST POS; FRACTIONATED INSPIRED OXYGEN 28
[2018-02-06] MEDS: ASPIRIN EC 81 MG PO SCH (13:25)
[2018-02-06] MEDS: K-DUR TAB 20 MEQ PO SCH (13:26)
[2018-02-06] MEDS: COREG TAB 6.25 MG PO SCH ×2 (13:26→21:20)
[2018-02-06] MEDS: SNACK - Diabetic Appropriate PO SCH (20:10)
[2018-02-07] MEDS: DUONEB 0.5 MG/3 MG NEB SCH ×5 (05:00→20:35)
[2018-02-07 05:56] LABS: BASOPHILS % (AUTO) 0.4 % (0.2-1.0); EOSINOPHILS % (AUTO) 0.1 % (0.9-2.9); HEMATOCRIT 34.5 % (36.0-47.0); HEMOGLOBIN 11.3 g/dL (12.0-16.0); LYMPHOCYTES % (AUTO) 22.1 % (21.0-51.0); MEAN CORPUSCULAR HEMOGLOBIN 25.3 pg (27.0-34.0); MEAN CORPUSCULAR HGB CONC 32.7 g/dL (33.0-35.0); MEAN CORPUSCULAR VOLUME 77.5 fL (80.0-100.0); MEAN PLATELET VOLUME 11.3 fL (7.4-11.0); MONOCYTES # (AUTO) 0.3 x10^3/uL (0.3-0.8); MONOCYTES % (AUTO) 7.4 % (0.0-13.0); NEUTROPHILS # (AUTO) 3.1 x10^3/uL (2.2-4.8); PLATELET COUNT 115 X10^3/uL (150.0-450.0); RED BLOOD COUNT 4.45 X10^6/uL (3.5-5.4); RED CELL DISTRIBUTION WIDTH 16.7 % (11.6-16.5); WHITE BLOOD COUNT 4.4 X10^3/uL (3.6-10.0)
[2018-02-07 06:22] LABS: ALBUMIN 3.3 g/dL (3.4-5.0); CALCIUM 9.2 mg/dL (8.5-10.1); CARBON DIOXIDE 28.2 mmol/L (21-32); COR CA(FOR HYPOALB) 9.8 mg/dL (8.5-10.1); CREATININE 1.44 mg/dL (0.55-1.02); TOTAL PROTEIN 7.2 g/dL (6.4-8.2)
[2018-02-07 06:30] LABS: PLATELET MORPHOLOGY COMMENT NORMAL (NORMAL)
[2018-02-07] MEDS: HumuLIN R SUBCUT PRN ×4 (06:43→20:49)
[2018-02-07] MEDS: LEVAQUIN PREMIX IV 250 MG 250 MG/50 ML BAG IV SCH (09:29)
[2018-02-07] MEDS: COREG TAB 6.25 MG PO SCH ×2 (09:29→20:49)
[2018-02-07] MEDS: K-DUR TAB 20 MEQ PO SCH (09:29)
[2018-02-07] MEDS: SOLU-Medrol 40 MG VIAL IVP SCH ×2 (09:29→17:15)
[2018-02-07] MEDS: ASPIRIN EC 81 MG PO SCH (09:29)
--- NOTE | 2018-02-07 14:04 | RAD ---
Examination: Chest, PA and lateral views History: SOB, hypertension and diabetes Comparison 02/06/2018 Findings: Continued marked cardiomegaly with associated pulmonary vascular congestion. No definite pn eumonia or pleural fluid. Coronary artery calcifications are prominent. Impression: Cardiomegaly with pulmonary venous congestion and coronary artery arteriosclerosis. Reported By:
[2018-02-07] MEDS ORDERED: LASIX IVP ONE (15:56)
[2018-02-07] MEDS: SNACK - Diabetic Appropriate PO SCH (20:00)
[2018-02-07] MEDS ORDERED: CATAPRES TAB 0.1 MG PO ONE (23:36)
[2018-02-08] MEDS: SOLU-Medrol 40 MG VIAL IVP SCH ×3 (00:37→16:02)
[2018-02-08] MEDS: DUONEB 0.5 MG/3 MG NEB SCH ×6 (01:00→20:50)
[2018-02-08 05:24] LABS: BASOPHILS % (AUTO) 0.1 % (0.2-1.0); HEMOGLOBIN 12.1 g/dL (12.0-16.0); LYMPHOCYTES # (AUTO) 0.5 X10^3/uL (1.3-2.9); LYMPHOCYTES % (AUTO) 10.7 % (21.0-51.0); MEAN CORPUSCULAR HGB CONC 31.9 g/dL (33.0-35.0); MEAN CORPUSCULAR VOLUME 78.4 fL (80.0-100.0); MONOCYTES # (AUTO) 0.1 x10^3/uL (0.3-0.8); MONOCYTES % (AUTO) 1.5 % (0.0-13.0); NEUTROPHILS # (AUTO) 4.3 x10^3/uL (2.2-4.8); NEUTROPHILS % (AUTO) 87.7 % (42.0-75.0); PLATELET COUNT 129 X10^3/uL (150.0-450.0); RED BLOOD COUNT 4.84 X10^6/uL (3.5-5.4); RED CELL DISTRIBUTION WIDTH 16.5 % (11.6-16.5); WHITE BLOOD COUNT 4.9 X10^3/uL (3.6-10.0)
[2018-02-08] MEDS: HumuLIN R SUBCUT PRN ×4 (05:35→21:58)
[2018-02-08 05:37] LABS: ALANINE AMINOTRANSFERASE 33 Units/L (12-78); ALBUMIN 3.7 g/dL (3.4-5.0); ALKALINE PHOSPHATASE 54 Units/L (46-116); ASPARTATE AMINO TRANSFERASE 14 Units/L (15-37); BLOOD UREA NITROGEN 30 mg/dL (7-18); CALCIUM 9.4 mg/dL (8.5-10.1); CHLORIDE 101 mmol/L (98-107); COR NA(FOR HYPERGLY) 142 mmol/L (136-145); CREATININE 1.27 mg/dL (0.55-1.02); SODIUM 138 mmol/L (136-145); TOTAL PROTEIN 7.9 g/dL (6.4-8.2); eGFR NON BLACK RACES 46 (>60)
[2018-02-08 06:04] LABS: PLATELET MORPHOLOGY COMMENT NORMAL (NORMAL)
[2018-02-08] MEDS: LASIX IVP SCH ×2 (06:06→16:02)
--- NOTE | 2018-02-08 07:04 | RAD ---
History: Shortness of breath Study: AP chest Comparison: Yesterday Findings: There is unchanged mild to moderate cardiomegaly with mild vascular congestion. There is no definite effusion. There is no definite lung consolidation. Impression: Unchanged cardiomegaly and vascular congestion Reported By:
[2018-02-08] MEDS: LEVAQUIN PREMIX IV 250 MG 250 MG/50 ML BAG IV SCH (09:03)
[2018-02-08] MEDS: ASPIRIN EC 81 MG PO SCH (09:04)
[2018-02-08] MEDS: COREG TAB 6.25 MG PO SCH ×2 (09:04→21:20)
--- NOTE | 2018-02-08 10:08 | PCM.PROG ---
Progress Note - Progress Note for Day of Date of Exam: 02/08/18 - Subjective Subjective: WAS ADMITTED FOR COPD EXACERBATION, CHF, AND SHORTNESS OF BREATH. TODAY, SHE IS ALERT AND ORIENTED, LYING IN BED ON MORNING ROUNDS. SHE CONTINUES WITH COMPLAINTS OF SHORTNESS OF BREATH. SHE DENIES IMPROVEMENT SINCE ADMISSION. SHE ALSO CONTINUES WITH GENERALIZED WEAKNESS. ON EXAMINATION, HEART IS REGULAR IN RATE AND RHYTHM. BILATERAL LUNGS ARE NOTED WITH SCATTERED WHEEZING THROUGHOUT. ABDOMEN IS ROUND, SOFT, AND NON-TENDER WITH NORMAL BOWEL SOUNDS NOTED IN ALL QUADRANTS. BILATERAL LOWER EXTREMITIES ARE NOTED WITH TRACE EDEMA. HER VITALS THIS MORNING ARE 98.8-67-20-95%-135/80. LABS WERE OBTAINED. ABNORMAL LAB VALUES INCLUDE THE FOLLOWING: PLT COUNT 129, POTASSIUM 5.2, BUN 30, C REATININE 1.27, GLUCOSE 258, AST 14. CHEST XRAY REVEALED: There is unchanged mild to moderate cardiomegaly with mild vascular congestion. There is no definite effusion. There is no definite lung consolidation. URINALYSIS ON ADMISSION REVEALED WBC 3-5, LEUKOCYTS 1+, BACTERIA TRACE. SHE IS CURRENTLY R ECEIVING LEVAQUIN 250MG IV DAILY, LASIX 20MG IV BID, DUONEBS, AND SOLU-MEDROL 40MG IV Q8H. WE WILL CONTINUE WITH CURRENT PLAN OF CARE TODAY AND OBTAIN AN ECHOCARDIOGRAM AND BNP. OTHERWISE, WE WILL FOLLOW UP WITH AM LABS AND CONTINUE TO MONITOR PATIENT. - Past Medical Family Social History Past Med/Fam/Surg Hx: No changes since H&P Allergies: Allergies strawberry Allergy (Verified 02/06/18 01:29) - Review of Systems ROS: No change since H&P - Vital Signs and I&O's Vital Signs: Temperature 98.8 F Pulse Rate [Brachial] 67 Pulse Rate 63 Respiratory Rate 20 Blood Pressure [Right Arm] 135/80 Blood Pressure [Left Arm] 161/102 Blood Pressure 130/87 O2 Sat by Pulse Oximetry 95 Intake and Output: Intake & Output 02/05/18 02/06/18 02/07/18 02/08/18 11:59 11:59 11:59 11:59 Intake Total 120 / 120 2029 2140 / 2140 Output Total 0 / 0 1000 / 1000 Balance 120 / 120 2029 1140 / 1140 - Physical Exam Oriented: Normal Eyes: Normal Ear: Normal Nose: Normal Throat: Normal Respiratory: Generalized, Diminished, Wheezes Cardiovascular: Normal. negative: S3, S4, Murmur : Normal Auscultation: Bowel Sounds: Normal Palpation: Normal Tenderness: Normal Skin: Normal Musculoskeletal: Back:Lumbar Psychiatric: Normal Mood Description: Calm Speech Pattern: Clear, Appropriate - Laboratory and Diagnostics Result Diagrams: 02/08/18 04:00 02/08/18 04:00 Labs: Laboratory WBC 4.9 X10^3/uL (3.6-10.0) 02/08/18 04:00 RBC 4.84 X10^6/uL (3.5-5.4) 02/08/18 04:00 Hgb 12.1 g/dL (12.0-16.0) 02/08/18 04:00 Hct 38.0 % (36.0-47.0) 02/08/18 04:00 MCV 78.4 fL (80.0-100.0) L 02/08/18 04:00 MCH 25.0 pg (27.0-34.0) L 02/08/18 04:00 MCHC 31.9 g/dL (33.0-35.0) L 02/08/18 04:00 RDW 16.5 % (11.6-16.5) 02/08/18 04:00 Plt Count 129 X10^3/uL (150.0-450.0) L 02/08/18 04:00 Plt Count Comment Adequate (ADEQUATE) 02/08/18 04:00 MPV 11.0 fL (7.4-11.0) 02/08/18 04:00 Neut % (Auto) 87.7 % (42.0-75.0) H 02/08/18 04:00 Lymph % (Auto) 10.7 % (21.0-51.0) L 02/08/18 04:00 [place] % (Auto) 1.5 % (0.0-13.0) 02/08/18 04:00 Eos % (Auto) 0.0 % (0.9-2.9) L 02/08/18 04:00 Baso % (Auto) 0.1 % (0.2-1.0) L 02/08/18 04:00 Neut # (Auto) 4.3 x10^3/uL (2.2-4.8) 02/08/18 04:00 Lymph # (Auto) 0.5 X10^3/uL (1.3-2.9) L 02/08/18 04:00 [place] # (Auto) 0.1 x10^3/uL (0.3-0.8) L 02/08/18 04:00 Eos # (Auto) 0.0 x10^3/uL (0.0-0.2) 02/08/18 04:00 Baso # (Auto) 0.0 X10^3/uL (0.0-0.1) 02/08/18 04:00 Absolute Nucleated RBC 0.0 /100WBC 02/08/18 04:00 Plt Morphology Comment Normal (NORMAL) 02/08/18 04:00 RBC Morphology Normal (NORMAL) 02/08/18 04:00 D-Dimer 550 ng/mL (0-400) H* 02/06/18 01:50 Sample Site Rr 02/06/18 12:38 ABG pH 7.410 (7.35-7.45) 02/06/18 12:38 ABG pCO2 40.0 mmHg (35.0-45.0) 02/06/18 12:38 ABG pO2 106.0 mmHg (80.0-100.0) H 02/06/18 12:38 ABG HCO3 25.4 mmol/L (22-26) 02/06/18 12:38 ABG O2 Saturation 98.0 % (90-100) 02/06/18 12:38 ABG Base Excess 0.7 mmol/L (-2.0-2.0) 02/06/18 12:38 Mikhail Test Pos 02/06/18 12:38 A-a Gradient 44.0 mmHg 02/06/18 12:38 FiO2 28 02/06/18 12:38 Blood Gas Comments Pt jose enrique well. cdn 02/06/18 12:38 Sodium 138 mmol/L (136-145) 02/08/18 04:00 Corrected Sodium 142 mmol/L (136-145) 02/08/18 04:00 Potassium 5.2 mmol/L (3.5-5.1) H 02/08/18 04:00 Chloride 101 mmol/L (98-107) 02/08/18 04:00 Carbon Dioxide 29.0 mmol/L (21-32) 02/08/18 04:00 BUN 30 mg/dL (7-18) H 02/08/18 04:00 Creatinine 1.27 mg/dL (0.55-1.02) H 02/08/18 04:00 Est GFR (MDRD) Af Amer 55 (>60) L 02/08/18 04:00 Est GFR (MDRD) Non-Af 46 (>60) L 02/08/18 04:00 Glucose 258 mg/dL (65-99) H 02/08/18 04:00 POC Glucose (mg/dL) 192 mg/dL (65-99) H 02/06/18 05:34 Hemoglobin A1c 7.3 % 02/06/18 02:00 Calcium 9.4 mg/dL (8.5-10.1) 02/08/18 04:00 Corrected Calcium TNP 02/08/18 04:00 Total Bilirubin 0.60 mg/dL (0.2-1.0) 02/08/18 04:00 AST 14 Units/L (15-37) L 02/08/18 04:00 ALT 33 Units/L (12-78) 02/08/18 04:00 Alkaline Phosphatase 54 Units/L (46-116) 02/08/18 04:00 B-Natriuretic Peptide 1470 pg/mL (0-79) H* 02/08/18 04:00 Total Protein 7.9 g/dL (6.4-8.2) 02/08/18 04:00 Albumin 3.7 g/dL (3.4-5.0) 02/08/18 04:00 Globulin 4.2 g/dL (2.5-4.5) 02/08/18 04:00 Albumin/Globulin Ratio 0.9 Ratio (1.1-2.1) L 02/08/18 04:00 Specimen Type Clean catch urine 02/06/18 03:51 Urine Color Crystal (YELLOW) 02/06/18 03:51 Urine Appearance Hazy (CLEAR) 02/06/18 03:51 Urine pH 5.0 (5.0 - 8.0) 02/06/18 03:51 Ur Specific [place] 1.020 (1.000-1.030) 02/06/18 03:51 Urine Protein 2+ (NEGATIVE) 02/06/18 03:51 Urine Glucose (UA) Negative (NEGATIVE) 02/06/18 03:51 Urine Ketones Negative (NEGATIVE) 02/06/18 03:51 Urine Occult Blood Negative (NEGATIVE) 02/06/18 03:51 Urine Nitrite Negative (NEGATIVE) 02/06/18 03:51 Urine Bilirubin 1+ (NEGATIVE) 02/06/18 03:51 Urine Urobilinogen 1+ (NORMAL) 02/06/18 03:51 Ur Leukocyte Esterase 1+ (NEGATIVE) 02/06/18 03:51 Urine RBC None seen /HPF (NONE SEEN) 02/06/18 03:51 Urine WBC 3-5 /HPF (NONE SEEN) 02/06/18 03:51 Ur Squamous Epith Cells Many /HPF (NEGATIVE) 02/06/18 03:51 Urine Bacteria Trace /HPF (NEGATIVE) 02/06/18 03:51 Hyaline Casts Few /LPF (NEGATIVE) 02/06/18 03:51 Urine Mucus Many /HPF (NEGATIVE) 02/06/18 03:51 Ur Culture Indicated? No/not indicated 02/06/18 03:51 - Plan (1) COPD with acute exacerbation Status: Acute Plan: CONTINUE RESPIRATORY TX AND SUPPLEMENTAL OXYGEN, CONTINUE SOLU-MEDROL, MONITOR CHEST XRAY (2) CHF (congestive heart failure) Status: Acute Qualifiers: Heart failure type: unspecified Heart failure chronicity: acute on chronic Qualified Code(s): I50.9 - Heart failure, unspecified Plan: RESP THERAPY, SUPPLEMENTAL O2, JET NEBS, CONTINUE SOLU MEDROL, LEVAQUIN IV, AND LASIX IV, OBTAIN ECHO AND BNP, MONITOR LABS AND CHEST XRAY (3) SOB (shortness of breath) Status: Acute Plan: RESP THERAPY, SUPPLEMENTAL O2. JET NEBS, CONTINUE SOLU MEDROL, LEVAQUIN IV, AND LASIX IV. MONITOR LABS AND CHEST XRAY
--- NOTE | 2018-02-08 12:19 | PCM.PROG ---
Progress Note - Progress Note for Day of Date of Exam: 02/07/18 - Subjective Subjective: WAS ADMITTED FOR COPD EXACERBATION, CHF, AND SHORTNESS OF BREATH. TODAY, SHE IS ALERT AND ORIENTED, LYING IN BED ON MORNING ROUNDS. SHE CONTINUES WITH COMPLAINTS OF SHORTNESS OF BREATH. SHE DENIES IMPROVEMENT SINCE ADMISSION. SHE ALSO CONTINUES WITH GENERALIZED WEAKNESS. ON EXAMINATION, HEART IS REGULAR IN RATE AND RHYTHM. PT DOES HAD HX OF CAD, CONTINUE WITH MILD DIMINISHED LUNG BASES. PT REFUSED TRANSFER TO TERTIARY CARE FOR HEART CATH. PLAN TO CONTINUE BP CONTROL, STATIN, ASPIRIN AND SUPPLEMENTAL O2, REPEAT CXR THIS AM, AM LABS - Past Medical Family Social History Past Med/Fam/Surg Hx: No changes since H&P Allergies: Allergies strawberry Allergy (Verified 02/06/18 01:29) - Review of Systems ROS: No change since H&P - Vital Signs and I&O's Vital Signs: Temperature 98.8 F Pulse Rate [Brachial] 67 Pulse Rate 63 Respiratory Rate 20 Blood Pressure [Right Arm] 135/80 Blood Pressure [Left Arm] 161/102 Blood Pressure 130/87 O2 Sat by Pulse Oximetry 95 Intake and Output: Intake & Output 02/06/18 02/07/18 02/08/18 02/09/18 11:59 11:59 11:59 11:59 Intake Total 120 / 120 2029 / 2029 2140 / 2140 Output Total 0 / 0 1000 / 1000 Balance 120 / 120 2029 1140 / 1140 - Physical Exam Oriented: Normal Eyes: Normal Ear: Normal Nose: Normal Throat: Normal Respiratory: Generalized, Diminished Cardiovascular: Normal. negative: S3, S4, Murmur : Normal Auscultation: Bowel Sounds: Normal Tenderness: Normal Skin: Normal Musculoskeletal: Back:Lumbar Psychiatric: Normal Mood Description: Calm Speech Pattern: Clear, Appropriate - Laboratory and Diagnostics Result Diagrams: 02/08/18 04:00 02/08/18 04:00 Labs: Laboratory WBC 4.9 X10^3/uL (3.6-10.0) 02/08/18 04:00 RBC 4.84 X10^6/uL (3.5-5.4) 02/08/18 04:00 Hgb 12.1 g/dL (12.0-16.0) 02/08/18 04:00 Hct 38.0 % (36.0-47.0) 02/08/18 04:00 MCV 78.4 fL (80.0-100.0) L 02/08/18 04:00 MCH 25.0 pg (27.0-34.0) L 02/08/18 04:00 MCHC 31.9 g/dL (33.0-35.0) L 02/08/18 04:00 RDW 16.5 % (11.6-16.5) 02/08/18 04:00 Plt Count 129 X10^3/uL (150.0-450.0) L 02/08/18 04:00 Plt Count Comment Adequate (ADEQUATE) 02/08/18 04:00 MPV 11.0 fL (7.4-11.0) 02/08/18 04:00 Neut % (Auto) 87.7 % (42.0-75.0) H 02/08/18 04:00 Lymph % (Auto) 10.7 % (21.0-51.0) L 02/08/18 04:00 [place] % (Auto) 1.5 % (0.0-13.0) 02/08/18 04:00 Eos % (Auto) 0.0 % (0.9-2.9) L 02/08/18 04:00 Baso % (Auto) 0.1 % (0.2-1.0) L 02/08/18 04:00 Neut # (Auto) 4.3 x10^3/uL (2.2-4.8) 02/08/18 04:00 Lymph # (Auto) 0.5 X10^3/uL (1.3-2.9) L 02/08/18 04:00 [place] # (Auto) 0.1 x10^3/uL (0.3-0.8) L 02/08/18 04:00 Eos # (Auto) 0.0 x10^3/uL (0.0-0.2) 02/08/18 04:00 Baso # (Auto) 0.0 X10^3/uL (0.0-0.1) 02/08/18 04:00 Absolute Nucleated RBC 0.0 /100WBC 02/08/18 04:00 Plt Morphology Comment Normal (NORMAL) 02/08/18 04:00 RBC Morphology Normal (NORMAL) 02/08/18 04:00 D-Dimer 550 ng/mL (0-400) H* 02/06/18 01:50 Sample Site Rr 02/06/18 12:38 ABG pH 7.410 (7.35-7.45) 02/06/18 12:38 ABG pCO2 40.0 mmHg (35.0-45.0) 02/06/18 12:38 ABG pO2 106.0 mmHg (80.0-100.0) H 02/06/18 12:38 ABG HCO3 25.4 mmol/L (22-26) 02/06/18 12:38 ABG O2 Saturation 98.0 % (90-100) 02/06/18 12:38 ABG Base Excess 0.7 mmol/L (-2.0-2.0) 02/06/18 12:38 Mikhail Test Pos 02/06/18 12:38 A-a Gradient 44.0 mmHg 02/06/18 12:38 FiO2 28 02/06/18 12:38 Blood Gas Comments Pt jose enrique well. cdn 02/06/18 12:38 Sodium 138 mmol/L (136-145) 02/08/18 04:00 Corrected Sodium 142 mmol/L (136-145) 02/08/18 04:00 Potassium 5.2 mmol/L (3.5-5.1) H 02/08/18 04:00 Chloride 101 mmol/L (98-107) 02/08/18 04:00 Carbon Dioxide 29.0 mmol/L (21-32) 02/08/18 04:00 BUN 30 mg/dL (7-18) H 02/08/18 04:00 Creatinine 1.27 mg/dL (0.55-1.02) H 02/08/18 04:00 Est GFR (MDRD) Af Amer 55 (>60) L 02/08/18 04:00 Est GFR (MDRD) Non-Af 46 (>60) L 02/08/18 04:00 Glucose 258 mg/dL (65-99) H 02/08/18 04:00 POC Glucose (mg/dL) 316 mg/dL (65-99) H 02/08/18 10:54 Hemoglobin A1c 7.3 % 02/06/18 02:00 Calcium 9.4 mg/dL (8.5-10.1) 02/08/18 04:00 Corrected Calcium TNP 02/08/18 04:00 Total Bilirubin 0.60 mg/dL (0.2-1.0) 02/08/18 04:00 AST 14 Units/L (15-37) L 02/08/18 04:00 ALT 33 Units/L (12-78) 02/08/18 04:00 Alkaline Phosphatase 54 Units/L (46-116) 02/08/18 04:00 B-Natriuretic Peptide 1470 pg/mL (0-79) H* 02/08/18 04:00 Total Protein 7.9 g/dL (6.4-8.2) 02/08/18 04:00 Albumin 3.7 g/dL (3.4-5.0) 02/08/18 04:00 Globulin 4.2 g/dL (2.5-4.5) 02/08/18 04:00 Albumin/Globulin Ratio 0.9 Ratio (1.1-2.1) L 02/08/18 04:00 Specimen Type Clean catch urine 02/06/18 03:51 Urine Color Crystal (YELLOW) 02/06/18 03:51 Urine Appearance Hazy (CLEAR) 02/06/18 03:51 Urine pH 5.0 (5.0 - 8.0) 02/06/18 03:51 Ur Specific [place] 1.020 (1.000-1.030) 02/06/18 03:51 Urine Protein 2+ (NEGATIVE) 02/06/18 03:51 Urine Glucose (UA) Negative (NEGATIVE) 02/06/18 03:51 Urine Ketones Negative (NEGATIVE) 02/06/18 03:51 Urine Occult Blood Negative (NEGATIVE) 02/06/18 03:51 Urine Nitrite Negative (NEGATIVE) 02/06/18 03:51 Urine Bilirubin 1+ (NEGATIVE) 02/06/18 03:51 Urine Urobilinogen 1+ (NORMAL) 02/06/18 03:51 Ur Leukocyte Esterase 1+ (NEGATIVE) 02/06/18 03:51 Urine RBC None seen /HPF (NONE SEEN) 02/06/18 03:51 Urine WBC 3-5 /HPF (NONE SEEN) 02/06/18 03:51 Ur Squamous Epith Cells Many /HPF (NEGATIVE) 02/06/18 03:51 Urine Bacteria Trace /HPF (NEGATIVE) 02/06/18 03:51 Hyaline Casts Few /LPF (NEGATIVE) 02/06/18 03:51 Urine Mucus Many /HPF (NEGATIVE) 02/06/18 03:51 Ur Culture Indicated? No/not indicated 02/06/18 03:51 - Plan (1) SOB (shortness of breath) Status: Acute Plan: RESP THERAPY, SUPPLEMENTAL O2. JET NEBS, LEVAQUIN IV, AND LASIX IV. MONITOR LABS AND CHEST XRAY. BP AND LIPID CONTROL. OBATIN LAST ECHO/CATH REPORT FROM DR JONES (2) CAD (coronary artery disease) Status: Acute (3) Hypertension Status: Acute (4) Congestive heart failure Status: Acute Qualifiers: Heart failure type: unspecified Heart failure chronicity: acute on chronic Qualified Code(s): I50.9 - Heart failure, unspecified (5) Reactive airway disease with wheezing Status: Acute Qualifiers: Asthma severity: mild Asthma persistence: intermittent Asthma complication type: with acute exacerbation Qualified Code(s): J45.21 - Mild intermittent asthma with (acute) exacerbation
[2018-02-08] MEDS: SNACK - Diabetic Appropriate PO SCH (21:22)
[2018-02-09] MEDS: SOLU-Medrol 40 MG VIAL IVP SCH ×3 (00:55→16:30)
[2018-02-09] MEDS: DUONEB 0.5 MG/3 MG NEB SCH ×6 (01:21→21:03)
[2018-02-09 05:05] LABS: BASOPHILS % (AUTO) 0.2 % (0.2-1.0); HEMATOCRIT 37.2 % (36.0-47.0); HEMOGLOBIN 12.1 g/dL (12.0-16.0); LYMPHOCYTES # (AUTO) 0.4 X10^3/uL (1.3-2.9); LYMPHOCYTES % (AUTO) 5.9 % (21.0-51.0); MEAN CORPUSCULAR HEMOGLOBIN 25.4 pg (27.0-34.0); MEAN CORPUSCULAR HGB CONC 32.4 g/dL (33.0-35.0); MEAN CORPUSCULAR VOLUME 78.4 fL (80.0-100.0); MEAN PLATELET VOLUME 10.8 fL (7.4-11.0); MONOCYTES # (AUTO) 0.2 x10^3/uL (0.3-0.8); MONOCYTES % (AUTO) 2.8 % (0.0-13.0); NEUTROPHILS # (AUTO) 5.6 x10^3/uL (2.2-4.8); NEUTROPHILS % (AUTO) 91.1 % (42.0-75.0); PLATELET COUNT 122 X10^3/uL (150.0-450.0); RED BLOOD COUNT 4.74 X10^6/uL (3.5-5.4); RED CELL DISTRIBUTION WIDTH 16.5 % (11.6-16.5); WHITE BLOOD COUNT 6.1 X10^3/uL (3.6-10.0)
[2018-02-09 05:13] LABS: ALANINE AMINOTRANSFERASE 27 Units/L (12-78); ALBUMIN 3.4 g/dL (3.4-5.0); ALKALINE PHOSPHATASE 50 Units/L (46-116); ASPARTATE AMINO TRANSFERASE 6 Units/L (15-37); BLOOD UREA NITROGEN 31 mg/dL (7-18); CARBON DIOXIDE 29.2 mmol/L (21-32); CHLORIDE 100 mmol/L (98-107); COR NA(FOR HYPERGLY) 143 mmol/L (136-145); CREATININE 1.35 mg/dL (0.55-1.02); SODIUM 138 mmol/L (136-145); TOTAL PROTEIN 7.4 g/dL (6.4-8.2); eGFR NON BLACK RACES 43 (>60)
[2018-02-09] MEDS: LASIX IVP SCH ×2 (06:00→16:30)
[2018-02-09] MEDS: HumuLIN R SUBCUT PRN ×4 (06:01→21:20)
[2018-02-09 06:04] LABS: GIANT PLATELET RARE; PLATELET MORPHOLOGY COMMENT ABNORMAL (NORMAL)
[2018-02-09 06:05] LABS: OVALOCYTES PRESENT
[2018-02-09] MEDS: LEVAQUIN PREMIX IV 250 MG 250 MG/50 ML BAG IV SCH (08:33)
[2018-02-09] MEDS: ASPIRIN EC 81 MG PO SCH (08:33)
[2018-02-09] MEDS: COREG TAB 6.25 MG PO SCH ×2 (08:33→21:19)
--- NOTE | 2018-02-09 08:50 | RAD ---
History: Shortness of breath Study: Portable AP chest Comparison: Yesterday Findings: There is mild to moderate cardiomegaly as before. There is persistent vascular congestion. There is increased density at the left lung base that may be artifactual or testicle. However I canno t exclude a left lower lobe infiltrate. Impression: Unchanged cardiomegaly and vascular congestion. Reported By:
[2018-02-09] MEDS: ZESTRIL TAB 5 MG PO SCH (10:37)
[2018-02-09] MEDS: ALDACTONE TAB 25 MG PO SCH (10:37)
[2018-02-09] MEDS ORDERED: TOPROL XL PO ONE (10:40)
--- NOTE | 2018-02-09 14:30 | PCM.PROG ---
Progress Note - Progress Note for Day of Date of Exam: 02/09/18 - Subjective Subjective: WAS ADMITTED FOR COPD EXACERBATION, CHF, AND SHORTNESS OF BREATH. TODAY, SHE IS ALERT AND ORIENTED, LYING IN BED ON MORNING ROUNDS. SHE CONTINUES WITH COMPLAINTS OF SHORTNESS OF BREATH, BUT REPORTS SLIGHT IMPROVEMENT SINCE YESTERDAY. SHE ALSO CONTINUES WITH GENERALIZED WEAKNESS. ON EXAMINATION, HEART IS REGULAR IN RATE AND RHYTHM. BILATERAL LUNGS ARE NOTED WITH SCATTERED WHEEZING THROUGHOUT. ABDOMEN IS ROUND, SOFT, AND NON-TENDER WITH NORMAL BOWEL SOUNDS NOTED IN ALL QUADRANTS. BILATERAL LOWER EXTREMITIES ARE NOTED WITH TRACE EDEMA. HER VITALS THIS MORNING ARE 97.9-64-20-98%-149/82. LABS WERE OBTAINED. ABNORMAL LAB VALUES INCLUDE THE FOLLOWING: PLT COUNT 122, BUN 31, CREATININE 1.35, GLUCOSE 309, AST 6, BNP 1030. CHEST XRAY REVEALED: There is mild to moderate cardiomegaly as before. There is persistent vascular congestion. There is increased density at the left lung base that may be artifactual, However I cannot exclude a left lower lobe infiltrate. AN ECHOCARDIOGRAM WAS OBTAINED YESTERDAY AND REVEALED AN EJECTION FRACTION OF 20%. SHE IS CURRENTLY RECEIVING LEVAQUIN 250MG IV DAILY, LASIX 20MG IV BID, DUONEBS, AND SOLU-MEDROL 40MG IV Q8H. TODAY, WE WILL START ALDACTONE 25MG PO DAILY AND LISINOPRIL 5MG PO DAILY. OTHERWISE, WE WILL CONTINUE WITH CURRENT PLAN OF CARE TODAY. WE WILL FOLLOW UP WITH AM LABS AND CONTINUE TO MONITOR PATIENT. - Past Medical Family Social History Past Med/Fam/Surg Hx: No changes since H&P Allergies: Allergies strawberry Allergy (Verified 02/06/18 01:29) - Review of Systems ROS: No change since H&P - Vital Signs and I&O's Vital Signs: Temperature 97.7 F Pulse Rate [Brachial] 65 Pulse Rate 73 Respiratory Rate 20 Blood Pressure [Right Arm] 157/74 Blood Pressure [Left Arm] 161/102 Blood Pressure 130/87 O2 Sat by Pulse Oximetry 93 Intake and Output: Intake & Output 02/07/18 02/08/18 02/09/18 02/10/18 11:59 11:59 11:59 11:59 Intake Total 2029 2140 / 2140 3140 / 3140 960 / 960 Output Total 1000 / 1000 5050 / 5050 1800 / 1800 Balance 2029 2029 1140 / 1140 -1910 / -1910 -840 / -840 - Physical Exam Oriented: Normal Eyes: Normal Ear: Normal Nose: Normal Throat: Normal Respiratory: Generalized, Diminished Cardiovascular: Normal. negative: S3, S4, Murmur : Normal Auscultation: Bowel Sounds: Normal Palpation: Normal Tenderness: Normal Skin: Normal Musculoskeletal: Back:Lumbar Psychiatric: Normal Mood Description: Calm Speech Pattern: Clear, Appropriate - Laboratory and Diagnostics Result Diagrams: 02/09/18 04:06 02/09/18 04:06 Labs: Laboratory WBC 6.1 X10^3/uL (3.6-10.0) 02/09/18 04:06 RBC 4.74 X10^6/uL (3.5-5.4) 02/09/18 04:06 Hgb 12.1 g/dL (12.0-16.0) 02/09/18 04:06 Hct 37.2 % (36.0-47.0) 02/09/18 04:06 MCV 78.4 fL (80.0-100.0) L 02/09/18 04:06 MCH 25.4 pg (27.0-34.0) L 02/09/18 04:06 MCHC 32.4 g/dL (33.0-35.0) L 02/09/18 04:06 RDW 16.5 % (11.6-16.5) 02/09/18 04:06 Plt Count 122 X10^3/uL (150.0-450.0) L 02/09/18 04:06 Plt Count Comment Decreased (ADEQUATE) A 02/09/18 04:06 MPV 10.8 fL (7.4-11.0) 02/09/18 04:06 Neut % (Auto) 91.1 % (42.0-75.0) H 02/09/18 04:06 Lymph % (Auto) 5.9 % (21.0-51.0) L 02/09/18 04:06 [place] % (Auto) 2.8 % (0.0-13.0) 02/09/18 04:06 Eos % (Auto) 0.0 % (0.9-2.9) L 02/09/18 04:06 Baso % (Auto) 0.2 % (0.2-1.0) 02/09/18 04:06 Neut # (Auto) 5.6 x10^3/uL (2.2-4.8) H 02/09/18 04:06 Lymph # (Auto) 0.4 X10^3/uL (1.3-2.9) L 02/09/18 04:06 [place] # (Auto) 0.2 x10^3/uL (0.3-0.8) L 02/09/18 04:06 Eos # (Auto) 0.0 x10^3/uL (0.0-0.2) 02/09/18 04:06 Baso # (Auto) 0.0 X10^3/uL (0.0-0.1) 02/09/18 04:06 Absolute Nucleated RBC 0.1 /100WBC 02/09/18 04:06 Total Counted 100 02/09/18 04:06 Neutrophils % (Manual) 90 % (39-76) H 02/09/18 04:06 Lymphocytes % (Manual) 8 % (13-43) L 02/09/18 04:06 Monocytes % (Manual) 2 % (4-9) L 02/09/18 04:06 Giant Platelets Rare 02/09/18 04:06 Plt Morphology Comment Abnormal (NORMAL) A 02/09/18 04:06 RBC Morphology Abnormal (NORMAL) A 02/09/18 04:06 Ovalocytes Present 02/09/18 04:06 D-Dimer 550 ng/mL (0-400) H* 02/06/18 01:50 Sample Site Rr 02/06/18 12:38 ABG pH 7.410 (7.35-7.45) 02/06/18 12:38 ABG pCO2 40.0 mmHg (35.0-45.0) 02/06/18 12:38 ABG pO2 106.0 mmHg (80.0-100.0) H 02/06/18 12:38 ABG HCO3 25.4 mmol/L (22-26) 02/06/18 12:38 ABG O2 Saturation 98.0 % (90-100) 02/06/18 12:38 ABG Base Excess 0.7 mmol/L (-2.0-2.0) 02/06/18 12:38 Mikhail Test Pos 02/06/18 12:38 A-a Gradient 44.0 mmHg 02/06/18 12:38 FiO2 28 02/06/18 12:38 Blood Gas Comments Pt jose enrique well. cdn 02/06/18 12:38 Sodium 138 mmol/L (136-145) 02/09/18 04:06 Corrected Sodium 143 mmol/L (136-145) 02/09/18 04:06 Potassium 4.3 mmol/L (3.5-5.1) 02/09/18 04:06 Chloride 100 mmol/L (98-107) 02/09/18 04:06 Carbon Dioxide 29.2 mmol/L (21-32) 02/09/18 04:06 BUN 31 mg/dL (7-18) H 02/09/18 04:06 Creatinine 1.35 mg/dL (0.55-1.02) H 02/09/18 04:06 Est GFR (MDRD) Af Amer 51 (>60) L 02/09/18 04:06 Est GFR (MDRD) Non-Af 43 (>60) L 02/09/18 04:06 Glucose 309 mg/dL (65-99) H 02/09/18 04:06 POC Glucose (mg/dL) 261 mg/dL (65-99) H 02/09/18 11:59 Hemoglobin A1c 7.3 % 02/06/18 02:00 Calcium 9.0 mg/dL (8.5-10.1) 02/09/18 04:06 Corrected Calcium TNP 02/09/18 04:06 Total Bilirubin 0.50 mg/dL (0.2-1.0) 02/09/18 04:06 AST 6 Units/L (15-37) L 02/09/18 04:06 ALT 27 Units/L (12-78) 02/09/18 04:06 Alkaline Phosphatase 50 Units/L (46-116) 02/09/18 04:06 B-Natriuretic Peptide 1030 pg/mL (0-79) H* 02/09/18 04:06 Total Protein 7.4 g/dL (6.4-8.2) 02/09/18 04:06 Albumin 3.4 g/dL (3.4-5.0) 02/09/18 04:06 Globulin 4.0 g/dL (2.5-4.5) 02/09/18 04:06 Albumin/Globulin Ratio 0.9 Ratio (1.1-2.1) L 02/09/18 04:06 Specimen Type Clean catch urine 02/06/18 03:51 Urine Color Crystal (YELLOW) 02/06/18 03:51 Urine Appearance Hazy (CLEAR) 02/06/18 03:51 Urine pH 5.0 (5.0 - 8.0) 02/06/18 03:51 Ur Specific [place] 1.020 (1.000-1.030) 02/06/18 03:51 Urine Protein 2+ (NEGATIVE) 02/06/18 03:51 Urine Glucose (UA) Negative (NEGATIVE) 02/06/18 03:51 Urine Ketones Negative (NEGATIVE) 02/06/18 03:51 Urine Occult Blood Negative (NEGATIVE) 02/06/18 03:51 Urine Nitrite Negative (NEGATIVE) 02/06/18 03:51 Urine Bilirubin 1+ (NEGATIVE) 02/06/18 03:51 Urine Urobilinogen 1+ (NORMAL) 02/06/18 03:51 Ur Leukocyte Esterase 1+ (NEGATIVE) 02/06/18 03:51 Urine RBC None seen /HPF (NONE SEEN) 02/06/18 03:51 Urine WBC 3-5 /HPF (NONE SEEN) 02/06/18 03:51 Ur Squamous Epith Cells Many /HPF (NEGATIVE) 02/06/18 03:51 Urine Bacteria Trace /HPF (NEGATIVE) 02/06/18 03:51 Hyaline Casts Few /LPF (NEGATIVE) 02/06/18 03:51 Urine Mucus Many /HPF (NEGATIVE) 02/06/18 03:51 Ur Culture Indicated? No/not indicated 02/06/18 03:51 - Plan (1) COPD with acute exacerbation Status: Acute Plan: CONTINUE RESPIRATORY TX AND SUPPLEMENTAL OXYGEN, CONTINUE SOLU-MEDROL, MONITOR CHEST XRAY (2) CHF (congestive heart failure) Status: Acute Qualifiers: Heart failure type: unspecified Heart failure chronicity: acute on chronic Qualified Code(s): I50.9 - Heart failure, unspecified Plan: RESP THERAPY, SUPPLEMENTAL O2, JET NEBS, CONTINUE SOLU MEDROL, LEVAQUIN IV, AND LASIX IV, ALDACTONE 25MG PO DAILY, LISINOPRIL 5MG PO DAILY, MONITOR LABS AND CHEST XRAY (3) SOB (shortness of breath) Status: Acute Plan: RESP THERAPY, SUPPLEMENTAL O2. JET NEBS, LEVAQUIN IV, AND LASIX IV. MONITOR LABS AND CHEST XRAY. BP AND LIPID CONTROL. OBATIN LAST ECHO/CATH REPORT FROM DR JONES
[2018-02-09] MEDS ORDERED: AMBIEN PO PRN (17:46)
[2018-02-09] MEDS: SNACK - Diabetic Appropriate PO SCH (21:21)
[2018-02-10] MEDS: SOLU-Medrol 40 MG VIAL IVP SCH (01:11)
[2018-02-10] MEDS: DUONEB 0.5 MG/3 MG NEB SCH ×4 (01:16→12:05)
[2018-02-10 05:14] LABS: BASOPHILS % (AUTO) 0.1 % (0.2-1.0); HEMATOCRIT 39.6 % (36.0-47.0); HEMOGLOBIN 12.6 g/dL (12.0-16.0); LYMPHOCYTES # (AUTO) 0.4 X10^3/uL (1.3-2.9); LYMPHOCYTES % (AUTO) 7.5 % (21.0-51.0); MEAN CORPUSCULAR HEMOGLOBIN 25.3 pg (27.0-34.0); MEAN CORPUSCULAR HGB CONC 31.9 g/dL (33.0-35.0); MEAN CORPUSCULAR VOLUME 79.2 fL (80.0-100.0); MEAN PLATELET VOLUME 11.3 fL (7.4-11.0); MONOCYTES # (AUTO) 0.2 x10^3/uL (0.3-0.8); MONOCYTES % (AUTO) 3.2 % (0.0-13.0); NEUTROPHILS # (AUTO) 5.4 x10^3/uL (2.2-4.8); NEUTROPHILS % (AUTO) 89.2 % (42.0-75.0); PLATELET COUNT 125 X10^3/uL (150.0-450.0); RED CELL DISTRIBUTION WIDTH 16.5 % (11.6-16.5)
[2018-02-10 05:30] LABS: ALANINE AMINOTRANSFERASE 27 Units/L (12-78); ALBUMIN 3.5 g/dL (3.4-5.0); ALKALINE PHOSPHATASE 52 Units/L (46-116); ASPARTATE AMINO TRANSFERASE < 6 Units/L (15-37); BLOOD UREA NITROGEN 37 mg/dL (7-18); CALCIUM 9.1 mg/dL (8.5-10.1); CARBON DIOXIDE 27.3 mmol/L (21-32); CHLORIDE 98 mmol/L (98-107); COR NA(FOR HYPERGLY) 142 mmol/L (136-145); CREATININE 1.41 mg/dL (0.55-1.02); SODIUM 136 mmol/L (136-145); TOTAL PROTEIN 7.5 g/dL (6.4-8.2); eGFR NON BLACK RACES 40 (>60)
[2018-02-10] MEDS: LASIX IVP SCH (06:00)
[2018-02-10] MEDS: HumuLIN R SUBCUT PRN ×2 (06:00→11:58)
[2018-02-10 06:05] LABS: B-TYPE NATRIURETIC PEPTIDE 772 pg/mL (0-79)
[2018-02-10 06:07] LABS: GIANT PLATELET RARE; PLATELET MORPHOLOGY COMMENT ABNORMAL (NORMAL)
[2018-02-10 06:08] LABS: OVALOCYTES PRESENT
--- NOTE | 2018-02-10 06:22 | RAD ---
History: Shortness of breath Study: AP chest Comparison: February 09 Findings: There is mild cardiomegaly and unchanged vascular congestion. There is no definite effusion . Impression: Unchanged cardiomegaly and vascular congestion Reported By:
[2018-02-10] MEDS: ALDACTONE TAB 25 MG PO SCH (09:22)
[2018-02-10] MEDS: COREG TAB 6.25 MG PO SCH (09:22)
[2018-02-10] MEDS: ASPIRIN EC 81 MG PO SCH (09:22)
[2018-02-10] MEDS: ZESTRIL TAB 5 MG PO SCH (09:23)
[2018-02-10] MEDS: LEVAQUIN PREMIX IV 250 MG 250 MG/50 ML BAG IV SCH (09:23)
[2018-02-10 09:56] VITALS: BP 157/94
--- NOTE | 2018-03-30 21:25 | DR.CARTERD ---
- Discharge Summary for: Discharge Summary for Date of:: 02/10/18 - Admission Date Date of Admission: 02/06/18 - Admission Diagnoses Admission Diagnosis: (1) Congestive heart failure (2) Reactive airway disease with wheezing (3) SOB (shortness of breath) (4) Hypertension (5) CAD (coronary artery disease) - Discharge Date Discharge Date: 02/10/18 - Discharge Diagnoses Discharge Diagnosis: (1) CHF (congestive heart failure) (2) COPD with acute exacerbation (3) SOB (shortness of breath) - Hospital Course Hospital Course: DAY ONE, PATIENT IS A 62 YEAR OLD BLACK FEMALE ER ADMISSION AFTER PRESENTING WITH COMPLAINTS OF SHORTNESS OF BREATH AND WHEEZING, WORSE OVER LAST "FEW DAYS" PT STATED SHE HAD SEEN 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 PT HAS HX OF CAD, SEES DR JONES IN [place]. LAST CATH APR 2017, HAD CATH 2009 WITH STENT PLACEMENT. PT HAS PMH OF HTN, CAD, CHF, DM, OA. PT CXR IN ER REVEALED POSSIBLE CHF, VOLUME OVERLOAD. PT ADMITTED FOR TREATMENT OF SOB, CHF. DAY TWO, WAS ADMITTED FOR COPD EXACERBATION, CHF, AND SHORTNESS OF BREATH. TODAY, SHE WAS ALERT AND ORIENTED, LYING IN BED ON MORNING ROUNDS. SHE CONTINUED WITH COMPLAINTS OF SHORTNESS OF BREATH. SHE DENIED IMPROVEMENT SINCE ADMISSION. SHE ALSO CONTINUED WITH GENERALIZED WEAKNESS. ON EXAMINATION, HEART IS REGULAR IN RATE AND RHYTHM. PT DOES HAVE A HX OF CAD, CONTINUED WITH MILD DIMINISHED LUNG BASES. PT REFUSED TRANSFER TO TERTIARY CARE FOR HEART CATH. WE CONTINUED BP CONTROL, STATIN, ASPIRIN AND SUPPLEMENTAL O2, REPEATED CXR THIS AM, AM LABS. DAY THREE, SHE WAS ALERT AND ORIENTED, LYING IN BED ON MORNING ROUNDS. SHE CONTINUED WITH COMPLAINTS OF SHORTNESS OF BREATH. SHE DENIED ANY IMPROVEMENT SINCE ADMISSION. SHE ALSO CONTINUED WITH GENERALIZED WEAKNESS. ON EXAMINATION, HEART WAS REGULAR IN RATE AND RHYTHM. BILATERAL LUNGS WERE NOTED WITH SCATTERED WHEEZING THROUGHOUT. ABDOMEN IS ROUND, SOFT, AND NON- TENDER WITH NORMAL BOWEL SOUNDS NOTED IN ALL QUADRANTS. BILATERAL LOWER EXTREMITIES WERE NOTED WITH TRACE EDEMA. HER VITALS THIS MORNING WERE 98.8-67-20-95%-135/80. LABS WERE OBTAINED. ABNORMAL LAB VALUES INCLUDED THE FOLLOWING: PLT COUNT 129, POTASSIUM 5.2, BUN 30, CREATININE 1.27, GLUCOSE 258, AST 14. CHEST XRAY REVEALED: There is unchanged mild to moderate cardiomegaly with mild vascular congestion. There is no definite effusion. There is no definite lung consolidation. URINALYSIS ON ADMISSION REVEALED WBC 3-5, LEUKOCYTS 1+, BACTERIA TRACE. SHE WAS CURRENTLY RECEIVING LEVAQUIN 250MG IV DAILY, LASIX 20MG IV BID, DUONEBS, AND SOLU-MEDROL 40MG IV Q8H. WE CONTINUED WITH CURRENT PLAN OF CARE AND OBTAIN AN ECHOCARDIOGRAM AND BNP. WE FOLLOWED UP WITH AM LABS AND CONTINUED TO MONITOR PATIENT. DAY FOUR, SHE WAS ALERT AND ORIENTED, LYING IN BED ON MORNING ROUNDS. SHE CONTINUED WITH COMPLAINTS OF SHORTNESS OF BREATH, BUT REPORTED SLIGHT IMPROVEMENT SINCE YESTERDAY. SHE ALSO CONTINUED WITH GENERALIZED WEAKNESS. ON EXAMINATION, HEART WAS REGULAR IN RATE AND RHYTHM. BILATERAL LUNGS WERE NOTED WITH SCATTERED WHEEZING THROUGHOUT. ABDOMEN WAS ROUND, SOFT, AND NON- TENDER WITH NORMAL BOWEL SOUNDS NOTED IN ALL QUADRANTS. BILATERAL LOWER EXTREMITIES WERE NOTED WITH TRACE EDEMA. HER VITALS THIS MORNING WERE 97.9-64-20-98%-149/82. LABS WERE OBTAINED. ABNORMAL LAB VALUES INCLUDED THE FOLLOWING: PLT COUNT 122, BUN 31, CREATININE 1.35, GLUCOSE 309, AST 6, BNP 1030. CHEST XRAY REVEALED: There is mild to moderate cardiomegaly as before. There is persistent vascular congestion. There is increased density at the left lung base that may be artifactual, However I cannot exclude a left lower lobe infiltrate. AN ECHOCARDIOGRAM WAS OBTAINED YESTERDAY AND REVEALED AN EJECTION FRACTION OF 20%. SHE WAS CURRENTLY RECEIVING LEVAQUIN 250MG IV DAILY, LASIX 20MG IV BID, DUONEBS, AND SOLU-MEDROL 40MG IV Q8H. TODAY, WE WILL START ALDACTONE 25MG PO DAILY AND LISINOPRIL 5MG PO DAILY. WE CONTINUED WITH CURRENT PLAN OF CARE TODAY. WE FOLLOWED UP WITH AM LABS AND CONTINUED TO MONITOR PATIENT. DAY FIVE, PATIENT'S CONDITION IMPROVED TODAY. SHE VOICED ZERO COMPLAINTS THIS AM. BNP IMPROVED. VITALS ARE STABLE. NO SIGNS AND SYMPTOMS OF ACUTE DISTRESS NOTED. LUNGS SOUNDS ARE DIMINISHED AND CLEAR ON AUSCULTATION. LABS ARE WITHIN NORMAL LIMITS FOR PATIENT. WE PLANNED FOR DISCHARGE. INSTRUCTIONS FOR MEDICATIONS AND FOLLOW UP DISCUSSED WITH PATIENT AND FAMILY, BOTH VOICED UNDERSTANDING. PATIENT DISCHARGED HOME IN STABLE CONDITION WITH FAMILY. - Discharge Medications Discharge Medications: Home Medication List ipratropium-albuterol 1 ea NEB TID #50 units 02/10/18 [Rx] lisinopril [Zestril] 10 mg PO HS #30 tab 02/10/18 [Rx] spironolactone 25 mg PO DAILY #30 tab 02/10/18 [Rx] Prescriptions: ipratropium-albuterol Isidoro Kathleen lisinopril [Zestril] Isidoro Kathleen spironolactone Isidoro Kathleen Ambulatory Orders aspirin [Aspir-Low] 81 mg PO DAILY 08/08/17 carvedilol [Coreg] 6.25 mg PO BID 08/08/17 benzonatate [Tessalon Perles] 200 mg PO TID PRN #30 cap 03/08/18 doxycycline hyclate [Vibramycin] 100 mg PO BID #20 cap 03/08/18 hydrocodone-chlorpheniramine [Tussionex Pennkinetic ER] 5 ml PO Q12H PRN #100 ml 03/08/18 - Discharge Disposition Discharge Disposition: PATIENT TO FOLLOW UP IN OUR OFFICE IN ONE WEEK.
== END 2018-02-10 14:55 | disposition home or self-care (01) | DRG 191 ==
LOC: MED/SURG 00:37 → ER 00:37 → OBSVTOIN 03:51 → MED/SURG 04:13
PROVIDERS: ADMIT Internal Medicine; ATTEND Internal Medicine
DX: J81.1 Chronic pulmonary edema; R06.02 Shortness of breath; N18.9 Chronic kidney disease, unspecified; E78.2 Mixed hyperlipidemia; J20.8 Acute bronchitis due to other specified organisms; I51.7 Cardiomegaly; E11.65 Type 2 diabetes mellitus with hyperglycemia; R53.1 Weakness; R60.0 Localized edema; J44.1 Chronic obstructive pulmonary disease with (acute) exacerbation; I25.10 Atherosclerotic heart disease of native coronary artery without angina pectoris; I50.9 Heart failure, unspecified; J45.21 Mild intermittent asthma with (acute) exacerbation
CPT/HCPCS: 36415; 36600; 71010; 71020; 71045; 71046; 80048; 80053; 81001; 82803; 83036; 83880; 85025; 85378; 93306; 94640; 94760; 96365; 96374; 96375; 99221; 99231; 99283; 99284; A4222; J1815; J1940; J1956; J2920; J2930; J7620

== ENCOUNTER 2018-03-05 21:28 | Observation (INO) ==
[2018-03-05 21:38] VITALS: BMI 41.9
[2018-03-05] MEDS ORDERED: SOLU-Medrol 125 MG VIAL IVP ONE (22:22)
[2018-03-05] MEDS ORDERED: DUONEB 0.5 MG/3 MG NEB ONE (22:22)
--- NOTE | 2018-03-05 22:26 | DR.FEVERAD ---
HPI - Time seen Time seen: 22:22 - PCP Primary Care Physician: nfd - Complaints/Symptoms Chief Complaint Doctor Comments: Patient is complaining of cough, fever, wheezing and problems breathing for the past three days. Patient state she do not have a local doctor and she had a albuterol treatment two days ago. She denies tobacco usage but drinks occasionally. She has a cough with whitish sputum with possible fever. She denies chest pain, nausea, diarrhea, dysuria or stomach pain. Chief Complaint:: pt states" i been coughing getting sob from coughing i cough up clear white stuff. i think i been running a fever to i been having chills i may have the flu" - Nurses notes reviewed Nurses Notes Review: Yes - Source History Provided: Patient - Mode of Arrival Mode of Arrival: Ambulatory - Timing Onset of Chief Complaint: 03/02/18 Came on: Gradually - Duration Duration: Intermittent How lon Duration: Days - Severity Fever Severity/Quality: subjective - Context Recent: None Symptoms: Fever, Cough, SOB History of: None - Modifying factors Modifying factors: Nothing - Associated signs and symptoms Associated signs and symptoms: Vomiting. 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 - Family History History of Family Medical Conditions: Yes Family Medical History: Diabetes Mellitus, [place], Coronary Artery Disease, Hypertension - Social History Does any household member use tobacco: No Alcohol Use: Rarely Do you use any recreational Drugs:: No Lives With: Family Lives Where: Home - infectious screening In the last 2 months have you had wt loss of >10#?: NO Have you had fever, night sweats or hemotysis?: No Have you traveled outside the country in the last 6 months?: No Isolation: Standard ROS - Review of Systems Constitutional: No Symptoms Reported, Fever Eyes: No Symptoms Reported ENTM: No Symptoms Reported, Nose Discharge, Nose Congestion Respiratoy: Productive Cough, Short of Breath, Wheezing Cardiovascular: No Symptoms Reported. negative: See HPI, Chest Pain, Edema, Palpitations, Syncope, Cyanosis, Skin Mottling, Other Gastrointestinal/Abdominal: No Symptoms Reported, Vomiting Genitourinary: No Symptoms Reported. negative: See HPI, Discharge, Dysuria, Frequency, Hematuria, Pain, Bleeding, Other Neurological: No Symptoms Reported. negative: See HPI, Anxiety, Depressed, Emotional Problems, Headache, Numbness, Paresthesia, Pre-existing Deficit, Seizure, Tingling, Tremors, Weakness, Dizziness, Problems Walking, Speech Problem, Other Musculoskeletal: No Symptoms Reported Integumentary: No Symptoms Reported. negative: See HPI, Change in Color, Change in Hair/Nails, Dryness, Lesions, Lumps, Rash, Itching, Wound, Bruises, Juandice, Other Hematologic/Lymphatic: No Symptoms Reported Endocrine: No Symptoms Reported Psychiatric: No Symptoms Reported. negative: See HPI, Anxiety, Depression, Hallucinations, Excessive crying, Suicidal, Other PE - General Limitations: No Limitations General Appearance: Alert, In Distress (slight), Obese - Head Head Exam: Normal Inspection, Atraumatic, Normocephalic - Eyes Eye exam: Normal Appearance, PERRL, EOMI. negative: Scleral Icterus, Conjunctival Injection, Nystagmus, Miosis, Mydrasis, Periorbital Swelling, Periorbital Tenderness, Other - ENT ENT Exam: Normal Exam, Normal Oropharynx, Normal External Ear Exam, Mucous Membranes Moist, TM's Normal Bilaterally External Ear Exam: Normal External Inspection TM/Canal Exam: Bilateral Normal Nose Exam: Normal Nose Exam Nasal Speculum Exam: Bilateral Normal Mouth Exam: Normal Inspection Teeth Exam: Normal Inspection Throat Exam: Normal Inspection. negative: Tonsillar Erythema, Tonsillomegaly, Tonsillar Exudate, R Peritonsillar Mass, L Peritonsillar Mass, Muffled Voice, Other - Neck Neck Exam: Normal Inspection, Full ROM, Trachea Midline. negative: Tenderness, Meningismus, Lymphadenopathy, Thyromegaly, Other - Respiratory Respiratory Exam: Normal Lung Sounds Bilat, Prolonged Expiratory Phase Respiratory Exam: Bilateral Wheezing, Bilateral Decreased Breath Sounds, Right Rales (basilar) - Cardiovascular Cardiovascular Exam: Regular Rate, Normal Rhythm, Normal Heart Sounds - Abdominal Exam Abdominal Exam: Normal Inspection, Normal Bowel Sounds, Soft. negative: Disten tion, Tenderness, Guarding, Rebound, Rigidity, Dimnished Bowel Sounds, Hyperactive Bowel Sounds, Hypoactive Bowel Sounds, Organomegaly, Trauma, Incision, Ascites, Mass, Bruit, Pulsatile Mass, Hernia, Other Abdominal Tenderness: negative: RUQ, RLQ, LUQ, LLQ, Epigastrium, Suprapubic, Diffuse, Mild, Moderate, Severe, Other - Extremities Extremities Exam: Normal Inspection, Full ROM, Normal Capillary Refill. negative: Tenderness, Edema, Joint Swelling, Calf Tenderness, Other - Back Back Exam: Normal Inspection, Full ROM - Neurologic Neurological Exam: Alert, Oriented X3, CN II-XII Intact, Normal Gait, Reflexes Normal - Psychiatric Psychiatric Exam: Normal Affect, Normal Mood. negative: Depressed, Agitated, Anxious, Flat Affect, Manic, Homicidal Ideation, Suicidal Ideation, Other - Skin Skin Exam: Warm, Dry, Intact, Normal Color. negative: Rash, Cyanosis, Diaphoresis, Erythema, Pallor, Mottled, Other Type of Lesion: negative: Rash, Abscess, Laceration, Foreign Body, Bite/Sting, Abrasion, Other Distribution: negative: Generalized, Involves Palms/Soles, Head, Face, Neck, Thorax, Chest, Back, Abdomen, Genitals, LUE, LLE, RUE, RLE, Other Description: negative: Size, Tenderness, Erythematous, Swelling, Macular, Papular, Vesicular, Blisters, Cofluent, Bullous, Petechial, Purpuric, Urticarial, Crusting, Discharge, Fluctuant, Indurated, Other - Vital Signs Vitals: Temperature 98.6 F Pulse Rate 100 Respiratory Rate 18 Blood Pressure [Right Arm] 157/94 Blood Pressure [Left Arm] 161/102 Blood Pressure 109/66 O2 Sat by Pulse Oximetry 96 ROR - Labs Reviewed Laboratory Results Reviewed?: Yes (All labs and x-ray results reviewed and discussed with patient) Result Diagrams: 03/05/18 22:33 03/05/18 22:33 - XRAY XRAY Interpreted by: Radiologist (CXR: Findings concerning for right lower lobe pneumonia.) - Labs Reviewed Laboratory: WBC 2.9 X10^3/uL (3.6-10.0) L 03/05/18 22:33 RBC 4.97 X10^6/uL (3.5-5.4) 03/05/18 22:33 Hgb 12.9 g/dL (12.0-16.0) 03/05/18 22:33 Hct 39.2 % (36.0-47.0) 03/05/18 22:33 MCV 79.0 fL (80.0-100.0) L 03/05/18 22: MCH 26.0 pg (27.0-34.0) L 03/05/18: MCHC 32.8 g/dL (33.0-35.0) L 03/05/18 22: RDW 17.2 % (11.6-16.5) H 03/05/18 22:33 Plt Count 134 X10^3/uL (150.0-450.0) L 03/05/18 22: MPV 11.1 fL (7.4-11.0) H 03/05/18 22:33 Neut % (Auto) 50.4 % (42.0-75.0) 03/05/18 22: Lymph % (Auto) 38.3 % (21.0-51.0) 03/05/18 22: Robeson % (Auto) 6.9 % (0.0-13.0) 03/05/18 22: Eos % (Auto) 3.4 % (0.9-2.9) H 03/05/18:33 Baso % (Auto) 1.0 % (0.2-1.0) 03/05/18: Neut # (Auto) 1.5 x10^3/uL (2.2-4.8) L 03/05/18: Lymph # (Auto) 1.1 X10^3/uL (1.3-2.9) L 03/05/18 22:33 Robeson # (Auto) 0.2 x10^3/uL (0.3-0.8) L 03/05/18: Eos # (Auto) 0.1 x10^3/uL (0.0-0.2) 03/05/18: Baso # (Auto) 0.0 X10^3/uL (0.0-0.1) 03/05/18: Absolute Nucleated RBC 0.1 /100WBC 03/05/18 22:33 Sodium 140 mmol/L (136-145) 03/05/18 22: Corrected Sodium 141 mmol/L (136-145) 03/05/18 22: Potassium 4.5 mmol/L (3.5-5.1) 11/09/18 22:33 Chloride 104 mmol/L (98-107) 03/05/18 22:33 Carbon Dioxide 29.4 mmol/L (21-32) 03/05/18 22:33 BUN 29 mg/dL (7-18) H 03/05/18 22:33 Creatinine 1.65 mg/dL (0.55-1.02) H 03/05/18 22:33 Est GFR (MDRD) Af Amer 41 (>60) L 03/05/18 22:33 Est GFR (MDRD) Non-Af 34 (>60) L 03/05/18 22:33 Glucose 121 mg/dL (65-99) H 03/05/18 22:33 Calcium 8.7 mg/dL (8.5-10.1) 03/05/18 22:33 Corrected Calcium TNP 03/05/18 22:33 Total Bilirubin 0.80 mg/dL (0.2-1.0) 03/05/18 22:33 AST 38 Units/L (15-37) H 03/05/18 22:33 ALT 28 Units/L (12-78) 03/05/18 22:33 Alkaline Phosphatase 54 Units/L (46-116) 03/05/18 22:33 Total Protein 7.8 g/dL (6.4-8.2) 03/05/18 22:33 Albumin 3.5 g/dL (3.4-5.0) 03/05/18 22:33 Globulin 4.3 g/dL (2.5-4.5) 03/05/18 22:33 Albumin/Globulin Ratio 0.8 Ratio (1.1-2.1) L 03/05/18 22:33 - Diagnosis Discharge Problem: COPD with acute exacerbation, Chronic kidney disease (CKD) Right lower lobe pneumonia Qualifiers: Pneumonia type: due to unspecified organism Qualified Code(s): J18.1 - Lobar pneumonia, unspecified organism Diabetes mellitus Qualifiers: Chronic kidney disease stage: stage 3 (moderate) - Discharge Plan Disposition: ADMITTED INPATIENT Condition: Stable - Follow ups/Referrals Follow ups/Referrals: Isidoro Walter [Primary Care Provider] - 3 days - Instructions
[2018-03-05] MEDS ORDERED: DUONEB 0.5 MG/3 MG ONE (22:29)
[2018-03-05] MEDS ORDERED: SOLU-Medrol 125 MG VIAL ONE (22:35)
[2018-03-05 22:47] LABS: EOSINOPHILS # (AUTO) 0.1 x10^3/uL (0.0-0.2); EOSINOPHILS % (AUTO) 3.4 % (0.9-2.9); HEMATOCRIT 39.2 % (36.0-47.0); HEMOGLOBIN 12.9 g/dL (12.0-16.0); LYMPHOCYTES # (AUTO) 1.1 X10^3/uL (1.3-2.9); LYMPHOCYTES % (AUTO) 38.3 % (21.0-51.0); MEAN CORPUSCULAR HGB CONC 32.8 g/dL (33.0-35.0); MEAN PLATELET VOLUME 11.1 fL (7.4-11.0); MONOCYTES # (AUTO) 0.2 x10^3/uL (0.3-0.8); MONOCYTES % (AUTO) 6.9 % (0.0-13.0); NEUTROPHILS # (AUTO) 1.5 x10^3/uL (2.2-4.8); NEUTROPHILS % (AUTO) 50.4 % (42.0-75.0); PLATELET COUNT 134 X10^3/uL (150.0-450.0); RED BLOOD COUNT 4.97 X10^6/uL (3.5-5.4); RED CELL DISTRIBUTION WIDTH 17.2 % (11.6-16.5); WHITE BLOOD COUNT 2.9 X10^3/uL (3.6-10.0)
[2018-03-05 22:57] LABS: ALANINE AMINOTRANSFERASE 28 Units/L (12-78); ALBUMIN 3.5 g/dL (3.4-5.0); ALKALINE PHOSPHATASE 54 Units/L (46-116); ASPARTATE AMINO TRANSFERASE 38 Units/L (15-37); BLOOD UREA NITROGEN 29 mg/dL (7-18); CALCIUM 8.7 mg/dL (8.5-10.1); CARBON DIOXIDE 29.4 mmol/L (21-32); CHLORIDE 104 mmol/L (98-107); COR NA(FOR HYPERGLY) 141 mmol/L (136-145); CREATININE 1.65 mg/dL (0.55-1.02); SODIUM 140 mmol/L (136-145); TOTAL PROTEIN 7.8 g/dL (6.4-8.2); eGFR NON BLACK RACES 34 (>60)
[2018-03-05] MEDS ORDERED: ROCEPHIN VIAL 1 GRAM IVP ONE (23:05)
--- NOTE | 2018-03-05 23:29 | RAD ---
CHEST RADIOGRAPHS PA AND LATERAL VIEWS CLINICAL HISTORY: 62-year-old female with shortness of breath and cough. COMPARISON: Chest radiograph 02/10/2018. FINDINGS: The cardiopericardial silhouette is stably enlarged with patchy airspace opacities right lower lobe. No large effusion or pneumothorax. The lungs are well inflated. Pulmonary vascularity is normal. Imaged osseous structures are intact. Soft tissues are unremarkable. IMPRESSION: Findings concerning for right lower lobe pneumonia, correlate with serology and clinically and follow-up to resolution. Reported By:
[2018-03-05] MEDS ORDERED: ROCEPHIN VIAL 1 GRAM ONE (23:49)
[2018-03-06] MEDS ORDERED: TUSSIONEX PENNKINETIC SUSP PO PRN (00:43)
[2018-03-06] MEDS ORDERED: SALINE 3% 15 ML NEB TX ONE (01:18)
[2018-03-06] MEDS ORDERED: NS 1/2 1000 ML IV 1,000 ML IV ONE (01:53)
[2018-03-06] MEDS ORDERED: NS 100 ML IV 100 ML IV ONE (01:56)
[2018-03-06] MEDS ORDERED: VIBRAMYCIN IV ONE (01:57)
[2018-03-06] MEDS: NS 1/2 1000 ML IV 1,000 ML IV SCH (02:01)
[2018-03-06] MEDS: VIBRAMYCIN 100 MG in NS 100 ML IV + SPIKE MINIBAG* 100 ML IV SCH ×3 (02:02→21:00)
--- NOTE | 2018-03-06 02:08 | RAD ---
Chest, two views Indication: Pneumonia Comparison: 03/05/2018 Findings: There is stable enlargement of the cardiac silhouette without congestive failure. Patchy opacities within the medial right lung base appear unchanged. Minimal atelectasis within the mid left lung is stable. The remainder of the lungs are clear. No significant pleural effusion or pneumothorax identified. There is no acute osseous abnormality. Impression: Stable airspace disease within the medial right lung base. Reported By:
[2018-03-06] MEDS: DUONEB 0.5 MG/3 MG NEB SCH ×5 (05:45→21:32)
[2018-03-06] MEDS: HumuLIN R SC PRN ×4 (06:12→20:07)
[2018-03-06 06:24] LABS: BASOPHILS % (AUTO) 0.7 % (0.2-1.0); EOSINOPHILS % (AUTO) 0.4 % (0.9-2.9); HEMATOCRIT 37.8 % (36.0-47.0); HEMOGLOBIN 12.1 g/dL (12.0-16.0); LYMPHOCYTES # (AUTO) 0.4 X10^3/uL (1.3-2.9); LYMPHOCYTES % (AUTO) 22.4 % (21.0-51.0); MEAN CORPUSCULAR HEMOGLOBIN 25.4 pg (27.0-34.0); MEAN CORPUSCULAR HGB CONC 31.9 g/dL (33.0-35.0); MEAN CORPUSCULAR VOLUME 79.6 fL (80.0-100.0); MEAN PLATELET VOLUME 10.6 fL (7.4-11.0); MONOCYTES # (AUTO) 0.1 x10^3/uL (0.3-0.8); MONOCYTES % (AUTO) 4.8 % (0.0-13.0); NEUTROPHILS # (AUTO) 1.3 x10^3/uL (2.2-4.8); NEUTROPHILS % (AUTO) 71.7 % (42.0-75.0); PLATELET COUNT 108 X10^3/uL (150.0-450.0); RED BLOOD COUNT 4.74 X10^6/uL (3.5-5.4); RED CELL DISTRIBUTION WIDTH 17.1 % (11.6-16.5)
[2018-03-06 06:34] LABS: ALBUMIN 3.1 g/dL (3.4-5.0); CALCIUM 8.3 mg/dL (8.5-10.1); CARBON DIOXIDE 25.2 mmol/L (21-32); CREATININE 1.4 mg/dL (0.55-1.02); TOTAL PROTEIN 7.3 g/dL (6.4-8.2)
[2018-03-06 07:13] LABS: WHITE BLOOD COUNT 1.9 X10^3/uL (3.6-10.0)
[2018-03-06 07:18] LABS: BAND NEUTROPHILS % 4 % (0-10)
[2018-03-06 07:22] LABS: ANISOCYTOSIS SLIGHT
[2018-03-06 07:24] LABS: GIANT PLATELET RARE; PLATELET MORPHOLOGY COMMENT ABNORMAL (NORMAL)
[2018-03-06 07:25] LABS: OVALOCYTES SLIGHT
[2018-03-06] MEDS: ROBITUSSIN DM PO SCH ×4 (09:41→21:00)
[2018-03-06] MEDS: ROCEPHIN VIAL 1 GRAM IVP SCH (09:41)
[2018-03-06] MEDS ORDERED: NIFEDIPINE CAP 10 MG PO ONE (13:52)
[2018-03-06] MEDS ORDERED: ECOTRIN TAB 325 MG PO ONE (13:53)
[2018-03-06] MEDS ORDERED: NITROSTAT SL PRN (13:55)
[2018-03-06 14:53] LABS: CREATINE KINASE 60 Units/L (26-192); CREATINE KINASE MB < 1.0 ng/mL (0-4.0); TROPONIN I 0.05 ng/mL (0-1.5)
[2018-03-06 14:55] LABS: CKMB % 1.7 % (<4)
[2018-03-07] MEDS: DUONEB 0.5 MG/3 MG NEB SCH ×6 (01:40→21:02)
[2018-03-07 06:08] LABS: BASOPHILS % (AUTO) 0.5 % (0.2-1.0); EOSINOPHILS % (AUTO) 0.4 % (0.9-2.9); HEMATOCRIT 36.4 % (36.0-47.0); HEMOGLOBIN 11.8 g/dL (12.0-16.0); LYMPHOCYTES # (AUTO) 0.6 X10^3/uL (1.3-2.9); LYMPHOCYTES % (AUTO) 18.1 % (21.0-51.0); MEAN CORPUSCULAR HEMOGLOBIN 25.5 pg (27.0-34.0); MEAN CORPUSCULAR HGB CONC 32.3 g/dL (33.0-35.0); MEAN CORPUSCULAR VOLUME 78.9 fL (80.0-100.0); MEAN PLATELET VOLUME 10.4 fL (7.4-11.0); MONOCYTES # (AUTO) 0.2 x10^3/uL (0.3-0.8); MONOCYTES % (AUTO) 5.1 % (0.0-13.0); NEUTROPHILS # (AUTO) 2.5 x10^3/uL (2.2-4.8); NEUTROPHILS % (AUTO) 75.9 % (42.0-75.0); PLATELET COUNT 110 X10^3/uL (150.0-450.0); RED BLOOD COUNT 4.62 X10^6/uL (3.5-5.4); WHITE BLOOD COUNT 3.2 X10^3/uL (3.6-10.0)
[2018-03-07 06:21] LABS: ALANINE AMINOTRANSFERASE 25 Units/L (12-78); ALBUMIN 3.1 g/dL (3.4-5.0); ALKALINE PHOSPHATASE 45 Units/L (46-116); ASPARTATE AMINO TRANSFERASE 24 Units/L (15-37); BLOOD UREA NITROGEN 27 mg/dL (7-18); CALCIUM 8.6 mg/dL (8.5-10.1); CARBON DIOXIDE 28.2 mmol/L (21-32); CHLORIDE 107 mmol/L (98-107); COR CA(FOR HYPOALB) 9.3 mg/dL (8.5-10.1); CREATININE 1.12 mg/dL (0.55-1.02); SODIUM 142 mmol/L (136-145); TOTAL PROTEIN 7.1 g/dL (6.4-8.2); eGFR NON BLACK RACES 53 (>60)
[2018-03-07 06:38] LABS: ANISOCYTOSIS SLIGHT; GIANT PLATELET RARE; OVALOCYTES SLIGHT; PLATELET MORPHOLOGY COMMENT ABNORMAL (NORMAL)
[2018-03-07] MEDS: ROBITUSSIN DM PO SCH ×4 (08:57→20:01)
[2018-03-07] MEDS: VIBRAMYCIN 100 MG in NS 100 ML IV + SPIKE MINIBAG* 100 ML IV SCH ×2 (08:58→20:01)
[2018-03-07] MEDS: ROCEPHIN VIAL 1 GRAM IVP SCH (08:58)
[2018-03-07] MEDS ORDERED: TYLENOL 325 MG TAB PO PRN (09:10)
[2018-03-07] MEDS: SOLU-Medrol 40 MG VIAL IVP SCH ×2 (09:39→17:15)
[2018-03-07] MEDS ORDERED: TORADOL 30 MG VIAL IVP PRN (11:04)
[2018-03-07 12:53] LABS: CKMB % 3.3 % (<4); CREATINE KINASE MB 3.6 ng/mL (0-4.0); TROPONIN I 0.38 ng/mL (0-1.5)
[2018-03-07 18:17] LABS: CKMB % 2.8 % (<4); TROPONIN I 0.36 ng/mL (0-1.5)
[2018-03-07] MEDS ORDERED: NS 1/2 1000 ML IV 1,000 ML IV ONE (18:17)
[2018-03-07] MEDS: NS 1/2 1000 ML IV 1,000 ML IV SCH (18:20)
[2018-03-07] MEDS: HumuLIN R SC PRN (20:02)
[2018-03-08] MEDS: DUONEB 0.5 MG/3 MG NEB SCH ×4 (00:47→12:26)
[2018-03-08] MEDS: SOLU-Medrol 40 MG VIAL IVP SCH ×2 (01:20→09:27)
[2018-03-08 05:22] LABS: BASOPHILS % (AUTO) 0.6 % (0.2-1.0); EOSINOPHILS % (AUTO) 0.1 % (0.9-2.9); HEMOGLOBIN 11.5 g/dL (12.0-16.0); LYMPHOCYTES % (AUTO) 16.7 % (21.0-51.0); MEAN CORPUSCULAR HEMOGLOBIN 25.6 pg (27.0-34.0); MEAN CORPUSCULAR HGB CONC 31.9 g/dL (33.0-35.0); MEAN CORPUSCULAR VOLUME 80.3 fL (80.0-100.0); MEAN PLATELET VOLUME 10.8 fL (7.4-11.0); MONOCYTES # (AUTO) 0.1 x10^3/uL (0.3-0.8); MONOCYTES % (AUTO) 2.4 % (0.0-13.0); NEUTROPHILS # (AUTO) 4.6 x10^3/uL (2.2-4.8); NEUTROPHILS % (AUTO) 80.2 % (42.0-75.0); PLATELET COUNT 86 X10^3/uL (150.0-450.0); RED BLOOD COUNT 4.49 X10^6/uL (3.5-5.4); RED CELL DISTRIBUTION WIDTH 16.9 % (11.6-16.5); WHITE BLOOD COUNT 5.7 X10^3/uL (3.6-10.0)
[2018-03-08 05:25] LABS: ALBUMIN 3.1 g/dL (3.4-5.0); CALCIUM 8.3 mg/dL (8.5-10.1); CARBON DIOXIDE 25.7 mmol/L (21-32); CREATININE 1.19 mg/dL (0.55-1.02); TOTAL PROTEIN 7.1 g/dL (6.4-8.2)
[2018-03-08] MEDS: HumuLIN R SC PRN ×2 (05:50→12:24)
--- NOTE | 2018-03-08 07:23 | RAD ---
HISTORY: Cough, shortness of breath Study: Chest AP portable Comparison: 03/06/2018, 03/05/2018 Findings: The heart remains enlarged. No definite congestive heart failure is noted. Patchy perihilar infiltrates are unchanged in the right lower lobe and slightly more prominent in the right upper lobe. The left lung appears clear. No definite pleural effusions are identified. The bony thorax is unremarkable. IMPRESSION: Moderate cardiomegaly without congestive heart failure, stable Patchy perihilar airspace opacities on the right as described Reported By:
[2018-03-08 07:30] LABS: PLATELET MORPHOLOGY COMMENT NORMAL (NORMAL)
[2018-03-08] MEDS: VIBRAMYCIN 100 MG in NS 100 ML IV + SPIKE MINIBAG* 100 ML IV SCH (08:17)
[2018-03-08] MEDS: ROCEPHIN VIAL 1 GRAM IVP SCH (08:18)
[2018-03-08] MEDS: ROBITUSSIN DM PO SCH (08:18)
[2018-03-08] MEDS ORDERED: COREG TAB 6.25 MG PO SCH (11:00)
[2018-03-08] MEDS ORDERED: ALDACTONE TAB 25 MG PO SCH (11:00)
[2018-03-08] MEDS ORDERED: ASPIRIN EC 81 MG PO SCH (11:00)
[2018-03-08 13:55] VITALS: BP 171/80
[2018-03-08] MEDS ORDERED: ZESTRIL TAB 10 MG PO SCH (21:00)
--- NOTE | 2018-03-25 08:48 | DR.H&P ---
H&P Chief Complaint Chief Complaint: INCREASING SOB, COUGH AND CONGESTION TIMES 3 DAYS. Allergies Allergies Allergy/AdvReac Type Severity Reaction Status Date / Time strawberry Allergy Verified 02/06/18 01:29 History of Present Illness History of Present Illness: PATIENT IS A 62YR OLD FEMALE ADMITTED TO HOSPITAL VIA ED FOR RLL PNEUMONIA, COPD EXACERBATION AND DIABETES. HER ILLNESS STARTED 3 DAYS AGO WITH PRODUCTIVE COUGH, WHITISH SPUTUM, INCREASSING WHEEZING, CONGESTION AND SOB. SHE IS WEAK AND NAUSEATED. SHE IS HAVING CHEST PAIN FROM COUGHING AND SHE IS RUNNING FEVER. MEDICATIONS TAKEN AT HOME DID NOT HELP. HER CONDITION WAS GETTING WORSE . CAME TO ED AND WAS EVALUATED AND ADMITTED TO HOSPITAL FOR FURTHER MANAGEMENT. 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 Family History Family Medical History: Diabetes Mellitus, [place], Coronary Artery Disease and Hypertension Social History Does patient currently use any type of tobacco product: Yes Have you used tobacco products in the last 12 months: Yes Type of Tobacco Use: Smokeless How many years tobacco product used: 20 Does any household member use tobacco: Yes Alcohol Use: Rarely Drug Use: None Medications Home Medications: strawberry Allergy (Verified 02/06/18 01:29) New Prescriptions benzonatate [Tessalon Perles] 200 mg PO TID PRN #30 cap 03/08/18 [Rx] doxycycline hyclate [Vibramycin] 100 mg PO BID #20 cap 03/08/18 [Rx] hydrocodone-chlorpheniramine [Tussionex Pennkinetic ER] 5 ml PO Q12H PRN #100 ml 03/08/18 [Rx] Review of Systems Constitutional: Fever, Weakness and Malaise Eyes: denies Conjunctivae Inflammation and Redness ENT: Nose Discharge, Nose Congestion and Throat Pain Respiratory: Cough, Shortness of Breath, Pleuritic Pain and Wheezing Cardiovascular: Chest Pain Gastrointestinal: Nausea Genitourinary: No Symptoms Reported Musculoskeletal: No Symptoms Reported Skin: No Symptoms Reported Neurological: Weakness Physical Exam Vital Signs: Temperature 97.5 F Pulse Rate [Right Brachial] 88 Pulse Rate 92 Respiratory Rate 22 Blood Pressure [Right Arm] 137/91 Blood Pressure [Left Arm] 171/80 Blood Pressure 109/66 O2 Sat by Pulse Oximetry 97 Oriented: Normal, Time, Person and Place Eyes: Normal Ear: Normal Nose: Discharge Throat: Normal Respiratory: Wheezes Throughout, RLL Rhonchi, LLL Rhonchi and RLL Rales Cardiovascular: Normal : Normal Auscultation: Bowel Sounds: Normal Palpation: Normal Tenderness: Normal Skin: Normal Musculoskeletal: negative Pulse Deficit, Motor Deficit and Sensory Deficit Psychiatric: Normal Mood Description: Calm Affect: Normal Speech Pattern: Appropriate Assessment/Plan (1) COPD with acute exacerbation: Status: Acute Plan: PATIENT WILL BE PLACE ON SUPPLIMENTARY OXYGEN AND GIVE IV SOLUMEDROL AND NEB TREATMENT WITH DUO NEB. WILL DISCHARGE HOME WHEN IMPROVE. (2) Pneumonia: Status: Acute Plan: WILL ADMIT PATIENT AND DO BLOOD AND SPUTUM CULTURES AND START IV ANTIBIOTICS TWO DIFFERENT TYPE PER PNEUMONIA PROTOCOL. WILL CONTINUE TO MONITOR PATIENT AND WILL REPEAT LABDS IN AM. SHE WILL BE DISCHARGE HOME WHEN IMPROVE. IF SHE GETS WORSE, REQUIRING CARE NOT AVAILABLE HERE, SHE WILL SHE WILL BE TRANSFER TO [facility]. (3) Diabetes: Status: Acute Plan: WILL PUT PATIENT ON 1800CAL ADA DIET, DO GLUCOSE CHECK AC AND HS AND CONTINUE TO MONITOR. (4) Hypertension: Status: Acute Plan: WILL MONITOR BP AND CONTINUE HER HOME MEDICTION AND ALL CURRENT HOME MEDICATIONS FOR HER CHRONIC MEDICAL PROBLEMS.
--- NOTE | 2018-04-12 00:13 | DR.CARTERD ---
- Discharge Summary for: Discharge Summary for Date of:: 03/08/18 - Admission Date Date of Admission: 03/06/18 - Admission Diagnoses Admission Diagnosis: (1) Pneumonia (2) COPD Exacerbation (3) Diabetes (4) Neutropenia - Discharge Date Discharge Date: 03/08/18 - Discharge Diagnoses Discharge Diagnosis: (1) Pneumonia (2) COPD Exacerbation (3) Diabetes (4) Neutropenia - Hospital Course Hospital Course: DAY ONE, PATIENT IS A 62YR OLD FEMALE ADMITTED TO HOSPITAL VIA ED FOR RLL PNEUMONIA, COPD EXACERBATION AND DIABETES. HER ILLNESS STARTED 3 DAYS AGO WITH PRODUCTIVE COUGH, WHITISH SPUTUM, INCREASING WHEEZING, CONGESTION AND SOB. SHE WAS WEAK AND NAUSEATED. SHE WAS HAVING CHEST PAIN FROM COUGHING AND SHE WAS RUNNING FEVER. MEDICATIONS TAKEN AT HOME DID NOT HELP. HER CONDITION WAS GETTING WORSE . SHE CAME TO THE ED AND WAS EVALUATED AND ADMITTED TO HOSPITAL FOR FURTHER MANAGEMENT. BLOOD AND SPUTUM CULTURES WERE ORDERED AND PATIENT WAS STARTED ON IV ANTIBIOTICS. TWO DIFFERENT TYPE PER PNEUMONIA PROTOCOL. WE CONTINUED TO MONITOR PATIENT AND REPEATED LABS IN THE AM. WE CONTINUED TO MONITOR. PATIENT'S HOME MEDICTION WERE RESUMED. DAY TWO, PATIENT CONTINUED TO BE TREATED FOR PNEUMONIA, COPD EXACERBATION, DIABETES, AND NEUTROPENIA. PATIENT HAS BEEN RECEIVING ROCEPHIN 1 GM IV DAILY, DOXYCYCLINE 100 MG IV Q12H, SOLUMEDROL 40 MG Q8H, BREATHING TREATMENTS AND NS 1/2 @ 75MLS/HR. LUNG SOUNDS WERE NOTED TO BE DIMINISHED AND CLEAR BILATERALLY THROUGHOUT ON AUSCULTATION. ABNORMAL LABS INCLUDED WBC 3.2, HGB 11.8, MCV 78.9, MCH 25.5, MCHC 32.3, RDW 17.0, PLT COUNT 110, BUN 27, CREATININE 1.12, GFR NON 53, ALKALINE PHOSPHATASE 45, ALBUMIN 3.1, A/G RATIO 0.8. VITAL WERE T-98.6, R-20, P-112, O2 SAT. 92% RA, 136/78. CURRENT TREATMENT WAS CONTINUED AND WE CONTINUED TO MONITOR PATIENT. LABS WERE TO BE REPEATED IN THE AM. DAY THREE, PATIENT'S SYMPTOMS HAD SIGNIFICANTLY IMPROVED. NO COMPLAINTS OF PAIN NOTED. ZERO SIGNS AND SYMPTOMS OF ACUTE DISTRESS NOTED. WBCs HAVE INCREASED TO 5.7. OTHER LAB VALUES ARE WITHIN NORMAL RANGE FOR PATIENT. VITAL SIGNS WERE STABLE. WE PLANNED FOR DISCHARGE. INSTRUCTIONS FOR MEDICATIONS AND FOLLOW UP WERE DISCUSSED WITH PATIENT AND FAMILY, BOTH VOICED UNDERSTANDING. PATIENT DISCHARGED HOME IN STABLE CONDITION WITH FAMILY. - Discharge Medications Discharge Medications: Home Medication List benzonatate [Tessalon Perles] 200 mg PO TID PRN #30 cap 03/08/18 [Rx] doxycycline hyclate [Vibramycin] 100 mg PO BID #20 cap 03/08/18 [Rx] hydrocodone-chlorpheniramine [Tussionex Pennkinetic ER] 5 ml PO Q12H PRN #100 ml 03/08/18 [Rx] Prescriptions: benzonatate [Tessalon Perles] Isidoro Walter doxycycline hyclate [Vibramycin] Isidoro Walter hydrocodone-chlorpheniramine [Tussionex Pennkinetic ER] Isidoro Walter Ambulatory Orders aspirin [Aspir-Low] 81 mg PO DAILY 08/08/17 carvedilol [Coreg] 6.25 mg PO BID 08/08/17 ipratropium-albuterol 1 ea NEB TID #50 units 02/10/18 lisinopril [Zestril] 10 mg PO HS #30 tab 02/10/18 spironolactone 25 mg PO DAILY #30 tab 02/10/18 - Discharge Disposition Discharge Disposition: PATIENT TO FOLLOW UP IN OUR OFFICE IN ONE WEEK.
== END 2018-03-08 13:35 | disposition home or self-care (01) ==
LOC: MED/SURG 21:29 → ER 21:29 → MED/SURG 03-06 01:40
PROVIDERS: ADMIT Emergency Medicine; ATTEND Internal Medicine
DX: E11.65 Type 2 diabetes mellitus with hyperglycemia; N18.3 Chronic kidney disease, stage 3 (moderate); J18.8 Other pneumonia, unspecified organism; R94.31 Abnormal electrocardiogram [ECG] [EKG]; E78.2 Mixed hyperlipidemia; I51.7 Cardiomegaly; R06.02 Shortness of breath; J44.1 Chronic obstructive pulmonary disease with (acute) exacerbation
CPT/HCPCS: 36415; 71010; 71020; 71045; 71046; 80053; 82550; 82553; 82947; 84484; 85025; 87040; 87070; 87205; 93005; 94640; 94760; 96365; 96367; 96372; 96374; 96375; 99218; 99283; 99284; A4222; G0378; J0696; J1815; J1885; J2920; J2930; J3490; J7050; J7620

== ENCOUNTER 2018-05-31 02:56 | Inpatient (IN) ==
[2018-05-31] MEDS ORDERED: ASPIRIN PO ONE (03:05)
[2018-05-31] MEDS ORDERED: ASPIRIN ONE (03:06)
--- NOTE | 2018-05-31 03:18 | DR.CP ---
HPI Time Seen Time Seen by Provider: 05/31/18 03:10 HPI Comment HPI Comment: PATIENT SITTING IN BED WATCHING TV WHEN SHE DEVELOP 10/10 CHEST PAIN IIN LEFT UPPER CHEST AREA. NO RADIATION. PAIN ASSOCIATED WITH DIAPHORESIS AND SOB. CURRENTLY 7/10 PAIN WELL. 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 Complaint Chief Complaint Doctor Comments: CHEST PAIN. Reviewed Nurses Notes Review: Yes Source History Provided: Patient Mode of Arrival Mode of Arrival: Ambulatory Timing Came on: Suddenly Pain: Present Now Duration Duration: Constant Duration: Hours Location Location of Chest Pain: Left and Chest Context Onset: At rest and With light exertion Cardiac Risk Factors: None PE Risk Factors: None History of: None Prehospital Care: None Quality Quality: Pressure like Severity Severity: Moderate Associated Signs and Symptoms Associated Signs and Symptoms: Shortness of Breath PMH PMH Past Medical History: CHF, Diabetes, Dyslipidemia, Hypertension and Sleep Apnea Surgical History: Angioplasty/Stents, 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 Family History Family Medical History: Diabetes Mellitus, [place], Coronary Artery Disease and Hypertension Social History Do you use any recreational Drugs:: No ROS Review of Systems Constitutional: Weakness and Fatigue Eyes: No Symptoms Reported ENTM: No Symptoms Reported Respiratoy: Short of Breath Cardiovascular: Chest Pain and Edema Gastrointestinal/Abdominal: No Symptoms Reported Genitourinary: No Symptoms Reported Neurological: No Symptoms Reported Musculoskeletal: No Symptoms Reported Integumentary: No Symptoms Reported Hematologic/Lymphatic: No Symptoms Reported Endocrine: No Symptoms Reported Psychiatric: No Symptoms Reported All Other Systems: Reviewed and Negative PE Vitals Vitals: Temperature 98.2 F Pulse Rate [Apical] 69 Pulse Rate 71 Respiratory Rate 23 Blood Pressure [Right Arm] 84/51 Blood Pressure [Left Arm] 171/80 Blood Pressure 118/77 O2 Sat by Pulse Oximetry 98 General Limitations: No Limitations General Appearance: Alert and In No Apparent Distress Head Head Exam: Normal Inspection Eyes Eye exam: Normal Appearance ENT ENT Exam: Normal External Ear Exam Chest Chest Inspection: Normal Inspection Respiratory Respiratory Exam: Normal Lung Sounds Bilat Respiratory Exam: Bilateral: Wheezing and Bilateral: Rhonchi, Upper: Rhonchi and Lower: Wheezing and Lower: Rhonchi Cardiovascular Cardiovascular Exam: Regular Rate and Normal Rhythm Pulse: Normal Edema: Normal Abdominal Exam Abdominal Exam: Normal Inspection, Normal Bowel Sounds and Soft Extremities Extremities Exam: Edema Back Back Exam: Normal Inspection Neurologic Neurological Exam: Alert and Oriented X3 Psychiatric Psychiatric Exam: Normal Affect and Normal Mood Skin Skin Exam: Warm, Dry, Intact and Normal Color MDM Additional Information Additional Information Obtained From: Family Differential Diagnosis Differential Diagnosis: Angina, CHF, Myocardial Infarction, Pericarditis, Pleuritis, Pneumonia, Pneumothorax and Pulmonary Embolus COURSE Treatment Treatment: SEE ORDERS. Education/Counseling Education/Counseling: Patient Educated On: Diagnosis ROR Labs Reviewed Laboratory Results Reviewed?: Yes Result Diagrams: 05/31/18 03:10 05/31/18 03:10 Laboratory: 05/31/18 07:37 Sputum - Expectorated Sputum - Final WBC 5.0 X10^3/uL (3.6-10.0) 05/31/18 03:10 RBC 5.15 X10^6/uL (3.5-5.4) 05/31/18 03:10 Hgb 13.5 g/dL (12.0-16.0) 05/31/18 03:10 Hct 41.7 % (36.0-47.0) 05/31/18 03:10 MCV 81.1 fL (80.0-100.0) 05/31/18 03:10 MCH 26.2 pg (27.0-34.0) L 05/31/18 03:10 MCHC 32.3 g/dL (33.0-35.0) L 05/31/18 03:10 RDW 16.1 % (11.6-16.5) 05/31/18 03:10 Plt Count 127 X10^3/uL (150.0-450.0) L 05/31/18 03:10 MPV 10.8 fL (7.4-11.0) 05/31/18 03:10 Neut % (Auto) 52.0 % (42.0-75.0) 05/31/18 03:10 Lymph % (Auto) 39.4 % (21.0-51.0) 05/31/18 03:10 [place] % (Auto) 5.3 % (0.0-13.0) 05/31/18 03:10 Eos % (Auto) 1.8 % (0.9-2.9) 05/31/18 03:10 Baso % (Auto) 1.5 % (0.2-1.0) H 05/31/18 03:10 Neut # (Auto) 2.6 x10^3/uL (2.2-4.8) 05/31/18 03:10 Lymph # (Auto) 2.0 X10^3/uL (1.3-2.9) 05/31/18 03:10 [place] # (Auto) 0.3 x10^3/uL (0.3-0.8) 05/31/18 03:10 Eos # (Auto) 0.1 x10^3/uL (0.0-0.2) 05/31/18 03:10 Baso # (Auto) 0.1 X10^3/uL (0.0-0.1) 05/31/18 03:10 Absolute Nucleated RBC 0.0 /100WBC 05/31/18 03:10 INR Target Range - 05/31/18 03:10 INR 1.25 (0.8-1.3) 05/31/18 03:10 APTT 34.3 SECONDS (22.9-36.5) 05/31/18 03:10 PTT Comment - 05/31/18 03:10 D-Dimer < 100 ng/mL (0-400) 05/31/18 03:10 Sample Site Rbra 05/31/18 03:16 ABG pH 7.410 (7.35-7.45) 05/31/18 03:16 ABG pCO2 40.0 mmHg (35.0-45.0) 05/31/18 03:16 ABG pO2 57.0 mmHg (80.0-100.0) L 05/31/18 03:16 ABG HCO3 25.4 mmol/L (22-26) 05/31/18 03:16 ABG O2 Saturation 90.0 % (90-100) 05/31/18 03:16 ABG Base Excess 0.7 mmol/L (-2.0-2.0) 05/31/18 03:16 Mikhail Test Na 05/31/18 03:16 A-a Gradient 121.0 mmHg 05/31/18 03:16 FiO2 32.0 05/31/18 03:16 Blood Gas Comments María abg well-mtf 05/31/18 03:16 Sodium 142 mmol/L (136-145) 05/31/18 03:10 Corrected Sodium 144 mmol/L (136-145) 05/31/18 03:10 Potassium 3.9 mmol/L (3.5-5.1) 05/31/18 03:10 Chloride 113 mmol/L (98-107) H 05/31/18 03:10 Carbon Dioxide 26.3 mmol/L (21-32) 05/31/18 03:10 BUN 20 mg/dL (7-18) H 05/31/18 03:10 Creatinine 1.42 mg/dL (0.55-1.02) H 05/31/18 03:10 Est GFR (MDRD) Af Amer 48 (>60) L 05/31/18 03:10 Est GFR (MDRD) Non-Af 40 (>60) L 05/31/18 03:10 Glucose 164 mg/dL (65-99) H 05/31/18 03:10 POC Glucose (mg/dL) 161 mg/dL (65-99) H 05/31/18 19:57 Calcium 9.6 mg/dL (8.5-10.1) 05/31/18 03:10 Corrected Calcium TNP 05/31/18 03:10 Magnesium 2.0 mg/dL (1.7-2.9) 05/31/18 03:10 Total Bilirubin 0.60 mg/dL (0.2-1.0) 05/31/18 03:10 AST 11 Units/L (15-37) L 05/31/18 03:10 ALT 17 Units/L (12-78) 05/31/18 03:10 Alkaline Phosphatase 55 Units/L (46-116) 05/31/18 03:10 Creatine Kinase 61 Units/L (26-192) 05/31/18 14:57 CK-MB (CK-2) 4.2 ng/mL (0-4.0) H* 05/31/18 14:57 CK/CKMB % Calc 6.9 % (<4) 05/31/18 14:57 Troponin I 0.97 ng/mL (0-1.5) 05/31/18 14:57 B-Natriuretic Peptide 323 pg/mL (0-79) H 05/31/18 03:10 Total Protein 8.5 g/dL (6.4-8.2) H 05/31/18 03:10 Albumin 3.9 g/dL (3.4-5.0) 05/31/18 03:10 Globulin 4.6 g/dL (2.5-4.5) H 05/31/18 03:10 Albumin/Globulin Ratio 0.8 Ratio (1.1-2.1) L 05/31/18 03:10 Triglycerides 153 mg/dL (0-150) H 05/31/18 03:10 Cholesterol 347 mg/dL (0-200) H 05/31/18 03:10 LDL Cholesterol, Calc 281 mg/dL (0-100) H 05/31/18 03:10 HDL Cholesterol 35 mg/dL (40-60) L 05/31/18 03:10 Cholesterol/HDL Ratio 9.9 (0.0-5.0) H 05/31/18 03:10 Specimen Type Catherized urine 05/31/18 04:25 Urine Color Pale yellow (YELLOW) 05/31/18 04:25 Urine Appearance Clear (CLEAR) 05/31/18 04:25 Urine pH 7.0 (5.0 - 8.0) 05/31/18 04:25 Ur Specific [place] 1.005 (1.000-1.030) 05/31/18 04:25 Urine Protein 1+ (NEGATIVE) 05/31/18 04:25 Urine Glucose (UA) 1+ (NEGATIVE) 05/31/18 04:25 Urine Ketones Negative (NEGATIVE) 05/31/18 04:25 Urine Occult Blood Negative (NEGATIVE) 05/31/18 04:25 Urine Nitrite Negative (NEGATIVE) 05/31/18 04:25 Urine Bilirubin Negative (NEGATIVE) 05/31/18 04:25 Urine Urobilinogen Normal (NORMAL) 05/31/18 04:25 Ur Leukocyte Esterase Negative (NEGATIVE) 05/31/18 04:25 Urine RBC None seen /HPF (NONE SEEN) 05/31/18 04:25 Urine WBC None seen /HPF (NONE SEEN) 05/31/18 04:25 Ur Squamous Epith Cells Rare /HPF (NEGATIVE) 05/31/18 04:25 Amorphous Sediment Trace /HPF (NEGATIVE) 05/31/18 04:25 Urine Bacteria Negative /HPF (NEGATIVE) 05/31/18 04:25 Ur Culture Indicated? No/not indicated 05/31/18 04:25 XRAY XRAY Interpreted by: Radiologist (REPORT NOTED,) XRAY Findings: REPORT DISCUSS WITH PATIENT(SEE DETAIL REPORT ON RECORD THAT WAS REPORTED.) EKG Rate: 113 [place]: Normal Rhythm: ST Block: None Hypertrophy: LAE ST: Nonsp
[2018-05-31 03:23] LABS: ABG BASE EXCESS 0.7 mmol/L (-2.0-2.0); ABG HCO3 25.4 mmol/L (22-26)
[2018-05-31 03:26] LABS: BASOPHILS # (AUTO) 0.1 X10^3/uL (0.0-0.1); BASOPHILS % (AUTO) 1.5 % (0.2-1.0); EOSINOPHILS # (AUTO) 0.1 x10^3/uL (0.0-0.2); EOSINOPHILS % (AUTO) 1.8 % (0.9-2.9); HEMATOCRIT 41.7 % (36.0-47.0); HEMOGLOBIN 13.5 g/dL (12.0-16.0); LYMPHOCYTES % (AUTO) 39.4 % (21.0-51.0); MEAN CORPUSCULAR HEMOGLOBIN 26.2 pg (27.0-34.0); MEAN CORPUSCULAR HGB CONC 32.3 g/dL (33.0-35.0); MEAN CORPUSCULAR VOLUME 81.1 fL (80.0-100.0); MEAN PLATELET VOLUME 10.8 fL (7.4-11.0); MONOCYTES # (AUTO) 0.3 x10^3/uL (0.3-0.8); MONOCYTES % (AUTO) 5.3 % (0.0-13.0); NEUTROPHILS # (AUTO) 2.6 x10^3/uL (2.2-4.8); PLATELET COUNT 127 X10^3/uL (150.0-450.0); RED BLOOD COUNT 5.15 X10^6/uL (3.5-5.4); RED CELL DISTRIBUTION WIDTH 16.1 % (11.6-16.5)
--- NOTE | 2018-05-31 03:30 | RAD ---
Chest, 1 view Indication: Chest pain Comparison: 03/08/2018 Findings: Cardiac silhouette enlargement is unchanged. There are interstitial and airspace opacities of the mid to lower lungs bilaterally. No evidence for large effusion, although evaluation is limited by patient body habitus. Impression: Cardiomegaly with mid to lower lung opacities bilaterally, suggestive for multifocal pneumonia or CHF. Reported By:
[2018-05-31 03:38] LABS: ALANINE AMINOTRANSFERASE 17 Units/L (12-78); ALBUMIN 3.9 g/dL (3.4-5.0); ALKALINE PHOSPHATASE 55 Units/L (46-116); ASPARTATE AMINO TRANSFERASE 11 Units/L (15-37); BLOOD UREA NITROGEN 20 mg/dL (7-18); CALCIUM 9.6 mg/dL (8.5-10.1); CARBON DIOXIDE 26.3 mmol/L (21-32); CHLORIDE 113 mmol/L (98-107); COR NA(FOR HYPERGLY) 144 mmol/L (136-145); CREATININE 1.42 mg/dL (0.55-1.02); SODIUM 142 mmol/L (136-145); TOTAL PROTEIN 8.5 g/dL (6.4-8.2); eGFR NON BLACK RACES 40 (>60)
[2018-05-31] MEDS ORDERED: MORPHINE SULFATE INJ 4 MG IVP ONE (03:47)
[2018-05-31] MEDS ORDERED: ZOFRAN INJ 4 MG VIAL IVP ONE (03:47)
[2018-05-31] MEDS ORDERED: ZOFRAN INJ 4 MG VIAL ONE (03:49)
[2018-05-31] MEDS ORDERED: ROCEPHIN VIAL 1 GRAM IVP ONE (03:49)
[2018-05-31] MEDS ORDERED: MORPHINE SULFATE INJ 4 MG ONE (03:49)
[2018-05-31 03:51] LABS: CHOL/HDL RATIO 9.9 (0.0-5.0); CHOLESTEROL 347 mg/dL (0-200); CKMB % 2.4 % (<4); CREATINE KINASE 42 Units/L (26-192); CREATINE KINASE MB < 1.0 ng/mL (0-4.0); HDL CHOLESTEROL 35 mg/dL (40-60); TRIGLYCERIDES 153 mg/dL (0-150); TROPONIN I < 0.02 ng/mL (0-1.5)
[2018-05-31] MEDS ORDERED: ROCEPHIN VIAL 1 GRAM ONE (03:51)
[2018-05-31] MEDS ORDERED: LASIX IVP ONE ×2 (03:52→03:53)
[2018-05-31 03:59] LABS: B-TYPE NATRIURETIC PEPTIDE 323 pg/mL (0-79)
[2018-05-31 04:41] LABS: BILIRUBIN,URINE NEGATIVE (NEGATIVE); BLOOD/HEMOGLOBIN,URINE NEGATIVE (NEGATIVE); GLUCOSE, URINE 1+ (NEGATIVE); KETONES,URINE NEGATIVE (NEGATIVE); LEUKOCYTE ESTERASE ,URINE NEGATIVE (NEGATIVE); NITRITES,URINE NEGATIVE (NEGATIVE); PROTEIN,URINE 1+ (NEGATIVE); UROBILINOGEN,URINE NORMAL (NORMAL)
[2018-05-31 04:49] LABS: AMORPHOUS SEDIMENT,UR TRACE /HPF (NEGATIVE); APPEARANCE,URINE CLEAR (CLEAR); BACTERIA,URINE NEGATIVE /HPF (NEGATIVE); COLOR,URINE PALE YELLOW (YELLOW); RBC,URINE NONE SEEN /HPF (NONE SEEN); SQUAMOUS EPITHELIAL CELL,UR RARE /HPF (NEGATIVE)
[2018-05-31] MEDS ORDERED: ZOFRAN INJ 4 MG VIAL IVP PRN (06:13)
[2018-05-31] MEDS ORDERED: MORPHINE SULFATE INJ 4 MG IVP PRN (06:14)
[2018-05-31] MEDS: NITRODUR PATCH 0.4 MG/HR TD SCH (06:38)
[2018-05-31] MEDS ORDERED: SALINE 3% 15 ML NEB TX NEB ONE (07:07)
[2018-05-31 07:52] VITALS: BMI 36.3
[2018-05-31] MEDS: DUONEB 0.5 MG/3 MG NEB SCH ×4 (08:32→20:34)
[2018-05-31] MEDS ORDERED: LASIX IVP SCH (09:00)
[2018-05-31] MEDS: VIBRAMYCIN 100 MG in D5W 250 ML IV 250 ML IV SCH ×2 (09:03→20:30)
[2018-05-31] MEDS: ALDACTONE TAB 25 MG PO SCH (09:04)
[2018-05-31] MEDS: COREG TAB 6.25 MG PO SCH ×2 (09:04→20:32)
[2018-05-31] MEDS: ASPIRIN EC 81 MG PO SCH (09:04)
[2018-05-31] MEDS: ELIQUIS PO SCH ×2 (09:04→20:33)
[2018-05-31] MEDS: ZESTRIL TAB 10 MG PO SCH (09:07)
[2018-05-31] MEDS ORDERED: NS 250 ML IV 250 ML IV ONE (09:11)
[2018-05-31 09:35] LABS: CKMB % 6.2 % (<4); CREATINE KINASE MB 3.8 ng/mL (0-4.0); TROPONIN I 0.95 ng/mL (0-1.5)
[2018-05-31 15:45] LABS: CKMB % 6.9 % (<4); TROPONIN I 0.97 ng/mL (0-1.5)
[2018-05-31 15:47] LABS: CREATINE KINASE MB 4.2 ng/mL (0-4.0)
[2018-05-31] MEDS: LASIX IVP SCH (16:27)
[2018-05-31] MEDS: CRESTOR TAB 10 MG PO SCH (20:32)
[2018-06-01] MEDS: DUONEB 0.5 MG/3 MG NEB SCH ×5 (04:28→20:59)
[2018-06-01] MEDS: NITRODUR PATCH 0.4 MG/HR TD SCH (05:39)
[2018-06-01 06:10] LABS: BASOPHILS # (AUTO) 0.1 X10^3/uL (0.0-0.1); BASOPHILS % (AUTO) 1.4 % (0.2-1.0); EOSINOPHILS # (AUTO) 0.1 x10^3/uL (0.0-0.2); EOSINOPHILS % (AUTO) 2.9 % (0.9-2.9); HEMATOCRIT 34.4 % (36.0-47.0); HEMOGLOBIN 11.2 g/dL (12.0-16.0); LYMPHOCYTES # (AUTO) 1.3 X10^3/uL (1.3-2.9); LYMPHOCYTES % (AUTO) 34.6 % (21.0-51.0); MEAN CORPUSCULAR HEMOGLOBIN 26.2 pg (27.0-34.0); MEAN CORPUSCULAR HGB CONC 32.5 g/dL (33.0-35.0); MEAN CORPUSCULAR VOLUME 80.5 fL (80.0-100.0); MEAN PLATELET VOLUME 10.9 fL (7.4-11.0); MONOCYTES # (AUTO) 0.3 x10^3/uL (0.3-0.8); MONOCYTES % (AUTO) 7.1 % (0.0-13.0); PLATELET COUNT 108 X10^3/uL (150.0-450.0); RED BLOOD COUNT 4.27 X10^6/uL (3.5-5.4); RED CELL DISTRIBUTION WIDTH 15.9 % (11.6-16.5); WHITE BLOOD COUNT 3.7 X10^3/uL (3.6-10.0)
[2018-06-01 07:57] LABS: ALBUMIN 3.2 g/dL (3.4-5.0); CALCIUM 9.1 mg/dL (8.5-10.1); CARBON DIOXIDE 26.7 mmol/L (21-32); CHOL/HDL RATIO 9.7 (0.0-5.0); COR CA(FOR HYPOALB) 9.7 mg/dL (8.5-10.1); CREATININE 1.47 mg/dL (0.55-1.02)
[2018-06-01] MEDS: ALDACTONE TAB 25 MG PO SCH (08:39)
[2018-06-01] MEDS: ZESTRIL TAB 10 MG PO SCH (08:39)
[2018-06-01] MEDS: ASPIRIN EC 81 MG PO SCH (08:40)
[2018-06-01] MEDS: ROCEPHIN VIAL 1 GRAM IVP SCH (08:40)
[2018-06-01] MEDS: LASIX IVP SCH ×2 (08:40→16:39)
[2018-06-01] MEDS: COREG TAB 6.25 MG PO SCH ×2 (08:40→20:34)
[2018-06-01] MEDS: ELIQUIS PO SCH ×2 (08:41→20:34)
[2018-06-01] MEDS: VIBRAMYCIN 100 MG in D5W 250 ML IV 250 ML IV SCH ×2 (08:42→20:35)
--- NOTE | 2018-06-01 13:13 | DR.H&P ---
H&P - History & Physical for Day of: H&P Date: 05/31/18 - Chief Complaint Chief Complaint: CHEST PAIN, SHORTNESS OF BREATH - History of Present Illness History of Present Illness: IS A 63 YEAR OLD PATIENT OF OURS WHO PRESENTED TO THE EMERGENCY ROOM WITH COMPLAINTS OF LEFT SIDED CHEST PAIN, SWEATING, AND SHORTNESS OF BREATH. PATIENT REPORTS THAT SYMPTOMS STARTED A FEW WEEKS AGO, BUT GOT WORSE TODAY. SHE IS CURRENTLY WEARING A HEART MONITOR. SHE IS SCHEDULED TO COME OFF OF IT 06/14/2018. ON ARRIVAL, VITALS WERE 97.3-111-20-84%RA-171/87. LABS WERE OBTAINED. ABNORMAL LABS INCLUDE THE FOLLOWING: CHLORIDE 113, BUN 20, CREATININE 1.42, GLUCOSE 164, AST 11, TOTAL PROTEIN 8.5, GLOBULIN 4.6, TRIGLYCERIDES 153, CHOLESTEROL 347, LDL 281, HDL 35, CHOLESTEROL/HDL RATIO 9.9, BNP 323. CARDIAC ENZYMES WITHIN NORMAL LIMITS. ABG REVEALED PH 7.410, PC02 40.0, P02 57.0. BLOOD AND SPUTUM CULTURES ARE PENDING. CHEST XRAY WAS OBTAINED AND REVEALED: Cardiomegaly with mid to lower lung opacities bilaterally, suggestive for multifocal pneumonia or CHF. EKG REVEALED: SINUS TACHYCARDIA WITH HR 113. SHE DOES HAVE A HISTORY OF CHF WITH A DOCUMENTED EJECTION FRACTION OF 20%. SHE WAS ADMITTED FOR FURTHER EVALUATION AND TREATMENT OF CHEST PAIN RULE OUT AMI AND CHF. SHE WAS STARTED ON RESPIRATORY TREATMENTS, SUPPLEMENTAL OXYGEN, DOXYCYCLINE 100MG PO BID, AND LASIX 40MG IV BID. OTHER HOME MEDICATIONS WERE RESUMED. WE PLANNED TO FOLLOW UP WITH AM LABS AND CHEST XRAY AND CONTINUE TO MONITOR. 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 - Family History Family Medical History: Diabetes Mellitus, [place], Coronary Artery Disease, Hypertension - Social History Does patient currently use any type of tobacco product: Yes Have you used tobacco products in the last 12 months: Yes Type of Tobacco Use: Smokeless Does any household member use tobacco: No Alcohol Use: Rarely Drug Use: None - Medications Home Medications: strawberry Allergy (Verified 05/31/18 03:15) CONTINUE taking the following medications apixaban [Eliquis] 5 mg PO BID 05/31/18 [History] lisinopril [Zestril] 10 mg PO DAILY 05/31/18 [History] nitroglycerin 1 patch TRANSDERMAL QDAY 05/31/18 [History] - Review of Systems Constitutional: Sweats Eyes: No Symptoms Reported ENT: No Symptoms Reported Respiratory: See HPI, Shortness of Breath, SOB with Excertion Cardiovascular: Chest Pain, See HPI, Edema (lower extremity 1+ pitting edema ) Gastrointestinal: No Symptoms Reported Genitourinary: No Symptoms Reported Musculoskeletal: No Symptoms Reported Skin: No Symptoms Reported Neurological: Weakness - Physical Exam Vital Signs: Temperature 98.2 F Pulse Rate [Apical] 67 Pulse Rate 58 Respiratory Rate 22 Blood Pressure [Right Arm] 109/74 Blood Pressure [Left Arm] 171/80 Blood Pressure 118/77 O2 Sat by Pulse Oximetry 99 Oriented: Normal Eyes: Normal Ear: Normal Nose: Normal Throat: Normal Respiratory: Diminished Throughout Cardiovascular: Tachycardia, Edema (BLE 1+ PITTING EDEMA ) : Normal Auscultation: Bowel Sounds: Normal Palpation: Normal Tenderness: Normal Skin: Normal Musculoskeletal: Normal Psychiatric: Normal Mood Description: Calm Affect: Normal Speech Pattern: Clear - Assessment/Plan (1) Chest pain, rule out acute myocardial infarction Status: Acute Plan: SERIAL CARDIAC ENZYMES AND EKGS, 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
[2018-06-01] MEDS ORDERED: TYLENOL 325 MG TAB PO PRN (13:57)
[2018-06-01] MEDS ORDERED: TYLENOL 325 MG TAB PO ONE (13:59)
--- NOTE | 2018-06-01 14:41 | RAD ---
Chest AP portable Indication: Dyspnea Findings: There is no pneumothorax. There is cardiomegaly. Monitoring leads obscure the left chest No convincing consolidation seen, with increased interstitial markings, slightly improved compared to the prior. Impression: Improving CHF compared to the prior.. Follow-up to exclude underlying lesion. Reported By:
[2018-06-01] MEDS: CRESTOR TAB 10 MG PO SCH (20:34)
--- NOTE | 2018-06-01 21:14 | PCM.PROG ---
Progress Note - Progress Note for Day of Date of Exam: 06/01/18 - Subjective Subjective: WAS ADMITTED FOR CHF AND CHEST PAIN, RULE OUT ACUTE NV. TODAY, SHE IS ALERT AND ORIENTED, LYING IN BED ON MORNING ROUNDS. SHE CONTINUES WITH COMPLAINTS OF SHORTNESS OF BREATH, BUT DENIES PAIN AT THIS TIME. ON EXAMINATION, HEART IS REGULAR IN RATE AND RHYTHM. BILATERAL LUNGS ARE NOTED WITH DIMINISHED LUNG SOUNDS THROUGHOUT. ABDOMEN IS ROUND, SOFT, AND NON-TENDER WITH NORMAL BOWEL SOUNDS NOTED IN ALL QUADRNATS. SHE CONTINUES WITH TRACE EDEMA TO LOWER EXTREMITIES. HER VITALS THIS MORNING ARE 98.2-67-22-97%-109/74. LABS WERE OBTAINED. ABNORMAL LAB VALUES INCLUDE THE FOLLOWING: HGB 11.2, HCT 34.4, BUN 26, CREATININE 1.47, GLUCOSE 120, ALK PHOS 43, ALBUMIN 3.2, CHOLESTEROL 282, LDL 224, HDL 29. CARDIAC ENZYMES AND EKGS WITHIN NORMAL LIMITS. CHEST XRAY OBTAINED TODAY AND REVEALED: IMPROVING CHF COMPARED TO THE PRIOR. TODAY, WE WILL CONTINUE WITH LASIX, SUPPLEMENTAL OXYGEN, RESPIRATORY TX, AND CURRENT PLAN OF CARE. OTHERWISE, WE WILL FOLLOW UP WITH AM LABS AND CHEST XRAY AND CONTINUE TO MONITOR. - Past Medical Family Social History Past Med/Fam/Surg Hx: No changes since H&P Allergies: Allergies strawberry Allergy (Verified 05/31/18 03:15) - Review of Systems ROS: No change since H&P - Vital Signs and I&O's Vital Signs: Temperature 98.0 F Pulse Rate [Apical] 78 Pulse Rate 65 Respiratory Rate 20 Blood Pressure [Right Arm] 115/68 Blood Pressure [Left Arm] 171/80 Blood Pressure 118/77 O2 Sat by Pulse Oximetry 97 Intake and Output: Intake & Output 05/30/18 05/31/18 06/01/18 06/02/18 11:59 11:59 11:59 11:59 Intake Total 50 / 50 1740 / 1740 660 / 660 Output Total 700 / 700 1999 Balance -650 / -650 -260 / -260 660 / 660 - Physical Exam Oriented: Normal Eyes: Normal Ear: Normal Nose: Normal Throat: Normal Respiratory: Generalized, Diminished Cardiovascular: Tachycardia, Edema (BLE 1+ PITTING EDEMA ) : Normal Auscultation: Bowel Sounds: Normal Tenderness: Normal Skin: Normal Musculoskeletal: Normal Psychiatric: Normal Mood Description: Calm Affect: Normal Speech Pattern: Clear - Laboratory and Diagnostics Result Diagrams: 06/01/18 05:13 06/01/18 05:13 Labs: 05/31/18 07:37 Sputum - Expectorated Sputum Sputum Culture - Preliminary 05/31/18 07:37 Sputum - Expectorated Sputum - Final Laboratory WBC 3.7 X10^3/uL (3.6-10.0) 06/01/18 05:13 RBC 4.27 X10^6/uL (3.5-5.4) 06/01/18 05:13 Hgb 11.2 g/dL (12.0-16.0) L D 06/01/18 05:13 Hct 34.4 % (36.0-47.0) L 06/01/18 05:13 MCV 80.5 fL (80.0-100.0) 06/01/18 05:13 MCH 26.2 pg (27.0-34.0) L 06/01/18 05:13 MCHC 32.5 g/dL (33.0-35.0) L 06/01/18 05:13 RDW 15.9 % (11.6-16.5) 06/01/18 05:13 Plt Count 108 X10^3/uL (150.0-450.0) L 06/01/18 05:13 MPV 10.9 fL (7.4-11.0) 06/01/18 05:13 Neut % (Auto) 54.0 % (42.0-75.0) 06/01/18 05:13 Lymph % (Auto) 34.6 % (21.0-51.0) 06/01/18 05:13 [place] % (Auto) 7.1 % (0.0-13.0) 06/01/18 05:13 Eos % (Auto) 2.9 % (0.9-2.9) 06/01/18 05:13 Baso % (Auto) 1.4 % (0.2-1.0) H 06/01/18 05:13 Neut # (Auto) 2.0 x10^3/uL (2.2-4.8) L 06/01/18 05:13 Lymph # (Auto) 1.3 X10^3/uL (1.3-2.9) 06/01/18 05:13 [place] # (Auto) 0.3 x10^3/uL (0.3-0.8) 06/01/18 05:13 Eos # (Auto) 0.1 x10^3/uL (0.0-0.2) 06/01/18 05:13 Baso # (Auto) 0.1 X10^3/uL (0.0-0.1) 06/01/18 05:13 Absolute Nucleated RBC 0.1 /100WBC 06/01/18 05:13 INR Target Range - 05/31/18 03:10 INR 1.25 (0.8-1.3) 05/31/18 03:10 APTT 34.3 SECONDS (22.9-36.5) 05/31/18 03:10 PTT Comment - 05/31/18 03:10 D-Dimer < 100 ng/mL (0-400) 05/31/18 03:10 Sample Site Rbra 05/31/18 03:16 ABG pH 7.410 (7.35-7.45) 05/31/18 03:16 ABG pCO2 40.0 mmHg (35.0-45.0) 05/31/18 03:16 ABG pO2 57.0 mmHg (80.0-100.0) L 05/31/18 03:16 ABG HCO3 25.4 mmol/L (22-26) 05/31/18 03:16 ABG O2 Saturation 90.0 % (90-100) 05/31/18 03:16 ABG Base Excess 0.7 mmol/L (-2.0-2.0) 05/31/18 03:16 Mikhail Test Na 05/31/18 03:16 A-a Gradient 121.0 mmHg 05/31/18 03:16 FiO2 32.0 05/31/18 03:16 Blood Gas Comments Maraí abg well-mtf 05/31/18 03:16 Sodium 138 mmol/L (136-145) 06/01/18 05:13 Corrected Sodium 138 mmol/L (136-145) 06/01/18 05:13 Potassium 4.1 mmol/L (3.5-5.1) 06/01/18 05:13 Chloride 102 mmol/L (98-107) 06/01/18 05:13 Carbon Dioxide 26.7 mmol/L (21-32) 06/01/18 05:13 BUN 26 mg/dL (7-18) H 06/01/18 05:13 Creatinine 1.47 mg/dL (0.55-1.02) H 06/01/18 05:13 Est GFR (MDRD) Af Amer 46 (>60) L 06/01/18 05:13 Est GFR (MDRD) Non-Af 38 (>60) L 06/01/18 05:13 Glucose 120 mg/dL (65-99) H 06/01/18 05:13 POC Glucose (mg/dL) 128 mg/dL (65-99) H 06/01/18 21:05 Calcium 9.1 mg/dL (8.5-10.1) 06/01/18 05:13 Corrected Calcium 9.7 mg/dL (8.5-10.1) 06/01/18 05:13 Magnesium 2.0 mg/dL (1.7-2.9) 06/01/18 05:13 Total Bilirubin 0.60 mg/dL (0.2-1.0) 06/01/18 05:13 AST 16 Units/L (15-37) 06/01/18 05:13 ALT 18 Units/L (12-78) 06/01/18 05:13 Alkaline Phosphatase 43 Units/L (46-116) L 06/01/18 05:13 Creatine Kinase 61 Units/L (26-192) 05/31/18 14:57 CK-MB (CK-2) 4.2 ng/mL (0-4.0) H* 05/31/18 14:57 CK/CKMB % Calc 6.9 % (<4) 05/31/18 14:57 Troponin I 0.97 ng/mL (0-1.5) 05/31/18 14:57 B-Natriuretic Peptide 323 pg/mL (0-79) H 05/31/18 03:10 Total Protein 7.0 g/dL (6.4-8.2) 06/01/18 05:13 Albumin 3.2 g/dL (3.4-5.0) L 06/01/18 05:13 Globulin 3.8 g/dL (2.5-4.5) 06/01/18 05:13 Albumin/Globulin Ratio 0.8 Ratio (1.1-2.1) L 06/01/18 05:13 Triglycerides 145 mg/dL (0-150) 06/01/18 05:13 Cholesterol 282 mg/dL (0-200) H 06/01/18 05:13 LDL Cholesterol, Calc 224 mg/dL (0-100) H 06/01/18 05:13 HDL Cholesterol 29 mg/dL (40-60) L 06/01/18 05:13 Cholesterol/HDL Ratio 9.7 (0.0-5.0) H 06/01/18 05:13 Specimen Type Catherized urine 05/31/18 04:25 Urine Color Pale yellow (YELLOW) 05/31/18 04:25 Urine Appearance Clear (CLEAR) 05/31/18 04:25 Urine pH 7.0 (5.0 - 8.0) 05/31/18 04:25 Ur Specific [place] 1.005 (1.000-1.030) 05/31/18 04:25 Urine Protein 1+ (NEGATIVE) 05/31/18 04:25 Urine Glucose (UA) 1+ (NEGATIVE) 05/31/18 04:25 Urine Ketones Negative (NEGATIVE) 05/31/18 04:25 Urine Occult Blood Negative (NEGATIVE) 05/31/18 04:25 Urine Nitrite Negative (NEGATIVE) 05/31/18 04:25 Urine Bilirubin Negative (NEGATIVE) 05/31/18 04:25 Urine Urobilinogen Normal (NORMAL) 05/31/18 04:25 Ur Leukocyte Esterase Negative (NEGATIVE) 05/31/18 04:25 Urine RBC None seen /HPF (NONE SEEN) 05/31/18 04:25 Urine WBC None seen /HPF (NONE SEEN) 05/31/18 04:25 Ur Squamous Epith Cells Rare /HPF (NEGATIVE) 05/31/18 04:25 Amorphous Sediment Trace /HPF (NEGATIVE) 05/31/18 04:25 Urine Bacteria Negative /HPF (NEGATIVE) 05/31/18 04:25 Ur Culture Indicated? 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
[2018-06-02] MEDS: DUONEB 0.5 MG/3 MG NEB SCH ×4 (01:09→12:15)
[2018-06-02] MEDS: NITRODUR PATCH 0.4 MG/HR TD SCH (05:16)
[2018-06-02 05:44] LABS: BASOPHILS % (AUTO) 1.2 % (0.2-1.0); EOSINOPHILS # (AUTO) 0.1 x10^3/uL (0.0-0.2); EOSINOPHILS % (AUTO) 2.8 % (0.9-2.9); HEMATOCRIT 35.6 % (36.0-47.0); HEMOGLOBIN 11.5 g/dL (12.0-16.0); LYMPHOCYTES # (AUTO) 1.7 X10^3/uL (1.3-2.9); LYMPHOCYTES % (AUTO) 48.5 % (21.0-51.0); MEAN CORPUSCULAR HEMOGLOBIN 26.2 pg (27.0-34.0); MEAN CORPUSCULAR HGB CONC 32.3 g/dL (33.0-35.0); MEAN CORPUSCULAR VOLUME 81.1 fL (80.0-100.0); MEAN PLATELET VOLUME 10.5 fL (7.4-11.0); MONOCYTES # (AUTO) 0.3 x10^3/uL (0.3-0.8); MONOCYTES % (AUTO) 8.2 % (0.0-13.0); NEUTROPHILS # (AUTO) 1.4 x10^3/uL (2.2-4.8); NEUTROPHILS % (AUTO) 39.3 % (42.0-75.0); PLATELET COUNT 121 X10^3/uL (150.0-450.0); RED BLOOD COUNT 4.39 X10^6/uL (3.5-5.4); RED CELL DISTRIBUTION WIDTH 15.6 % (11.6-16.5); WHITE BLOOD COUNT 3.5 X10^3/uL (3.6-10.0)
[2018-06-02 06:00] LABS: ALANINE AMINOTRANSFERASE 16 Units/L (12-78); ALBUMIN 3.3 g/dL (3.4-5.0); ALKALINE PHOSPHATASE 44 Units/L (46-116); ASPARTATE AMINO TRANSFERASE 13 Units/L (15-37); BLOOD UREA NITROGEN 32 mg/dL (7-18); CALCIUM 9.3 mg/dL (8.5-10.1); CARBON DIOXIDE 28.4 mmol/L (21-32); CHLORIDE 102 mmol/L (98-107); CKMB % 2.2 % (<4); COR CA(FOR HYPOALB) 9.9 mg/dL (8.5-10.1); COR NA(FOR HYPERGLY) 139 mmol/L (136-145); CREATINE KINASE 45 Units/L (26-192); CREATINE KINASE MB < 1.0 ng/mL (0-4.0); CREATININE 1.57 mg/dL (0.55-1.02); SODIUM 138 mmol/L (136-145); TOTAL PROTEIN 7.1 g/dL (6.4-8.2); TROPONIN I 0.31 ng/mL (0-1.5); eGFR NON BLACK RACES 36 (>60)
[2018-06-02 06:11] LABS: B-TYPE NATRIURETIC PEPTIDE 166 pg/mL (0-79)
--- NOTE | 2018-06-02 06:19 | RAD ---
History: Shortness of breath Study: Portable AP chest Comparison: Yesterday Findings: The lungs are now clear with resolution of vascular congestion. There is no edema or effusion. The heart size is now more normal in size. Impression: Resolution of findings of CHF no current evidence for active cardiopulmonary disease Reported By:
[2018-06-02] MEDS: VIBRAMYCIN 100 MG in D5W 250 ML IV 250 ML IV SCH (08:32)
[2018-06-02] MEDS: ELIQUIS PO SCH (08:32)
[2018-06-02] MEDS: ALDACTONE TAB 25 MG PO SCH (08:32)
[2018-06-02] MEDS: ZESTRIL TAB 10 MG PO SCH (08:32)
[2018-06-02] MEDS: LASIX IVP SCH (08:33)
[2018-06-02] MEDS: ROCEPHIN VIAL 1 GRAM IVP SCH (08:33)
[2018-06-02] MEDS: COREG TAB 6.25 MG PO SCH (08:33)
[2018-06-02] MEDS: ASPIRIN EC 81 MG PO SCH (08:33)
[2018-06-02 09:54] VITALS: BP 109/60
== END 2018-06-02 12:45 | disposition home or self-care (01) | DRG 291 ==
LOC: ER 02:58 → ICU 05:23 → MED/SURG 06-01 15:32
PROVIDERS: ADMIT Internal Medicine; ATTEND Internal Medicine
DX: R94.31 Abnormal electrocardiogram [ECG] [EKG]; E78.2 Mixed hyperlipidemia; R06.02 Shortness of breath; E11.65 Type 2 diabetes mellitus with hyperglycemia; R07.89 Other chest pain; J18.8 Other pneumonia, unspecified organism; I11.0 Hypertensive heart disease with heart failure; I50.9 Heart failure, unspecified
CPT/HCPCS: 36415; 36600; 51702; 71010; 71045; 80053; 80061; 81001; 82550; 82553; 82803; 83735; 83880; 84484; 85025; 85378; 85610; 85730; 87040; 87070; 87205; 93005; 93041; 94640; 96365; 96374; 96375; 99282; 99284; A4216; A4222; J0696; J1940; J2270; J2405; J3490; J7050; J7060; J7620

== ENCOUNTER 2020-11-19 22:15 | Inpatient (IN) ==
[2020-11-19 22:26] VITALS: BMI 39.9
--- NOTE | 2020-11-19 23:22 | DR.SOBA ---
HPI Time Seen Time Seen by Provider: 11/19/20 23:15 Primary Care Physician Primary Care Physician: NFD Complaints Chief Complaint:: PT AMBULATORY IN ED WITH C/O DIFFICULTY BREATHING SINCE THURSDAY AND GOTTEN WORSE TONIGHT. 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 Family History History of Family Medical Conditions: Yes Family Medical History: Diabetes Mellitus, [place], Coronary Artery Disease and Hypertension Social History Does patient currently use any type of tobacco product: No Have you used tobacco products in the last 12 months: No Type of Tobacco Use: None Does any household member use tobacco: No Alcohol Use: Occasionally Do you use any recreational Drugs:: No Lives With: Family Lives Where: Home Travel Risk Coronavirus risk:travel/contact w/high risk person: No Has patient experienced Coronavirus symptoms: Yes Coronavirus symptoms experienced: Shortness of Breath Infectious screening In the last 2 months have you had wt loss of >10#?: NO Have you had fever, night sweats or hemotysis?: No Have you traveled outside the country in the last 6 months?: No Isolation: Droplet PE Vital Signs Vitals: Temperature 97.0 F Pulse Rate [Right Brachial] 88 Pulse Rate 112 Respiratory Rate 20 Blood Pressure [Right Arm] 110/78 Blood Pressure 134/87 O2 Sat by Pulse Oximetry 96 ROR Labs Reviewed Result Diagrams: 11/19/20 23:34 11/19/20 23:34 Laboratory: WBC 4.2 X10^3/uL (3.6-10.0) 11/19/20 23:34 RBC 4.32 X10^6/uL (3.5-5.4) 11/19/20 23:34 Hgb 11.5 g/dL (12.0-16.0) L 11/19/20 23:34 Hct 35.4 % (36.0-47.0) L 11/19/20 23:34 MCV 82.1 fL (80.0-100.0) 11/19/20: MCH 26.7 pg (27.0-34.0) L 11/19/20: MCHC 32.5 g/dL (33.0-35.0) L 11/19/20: RDW 15.6 % (11.6-16.5) 11/19/20: Plt Count 133 X10^3/uL (150.0-450.0) L 11/19/20: MPV 10.4 fL (7.4-11.0) 11/19/20: Neut % (Auto) 58.8 % (42.0-75.0) 11/19/20: Lymph % (Auto) 31.3 % (21.0-51.0) 11/19/20: [place] % (Auto) 6.2 % (0.0-13.0) 11/19/20: Eos % (Auto) 1.4 % (0.9-2.9) 11/19/20: Baso % (Auto) 2.3 % (0.2-1.0) H 11/19/20: Neut # (Auto) 2.5 x10^3/uL (2.2-4.8) 11/19/20 23: Lymph # (Auto) 1.3 X10^3/uL (1.3-2.9) 11/19/20 23:34 [place] # (Auto) 0.3 x10^3/uL (0.3-0.8) 11/19/20: Eos # (Auto) 0.1 x10^3/uL (0.0-0.2) 11/19/20: Baso # (Auto) 0.1 X10^3/uL (0.0-0.1) 11/19/20: Absolute Nucleated RBC 0.0 /100WBC 11/19/20: Sample Site Lra 11/19/20 00:02 ABG pH 7.410 (7.35-7.45) 11/19/20 00:02 ABG pCO2 39.0 mmHg (35.0-45.0) 11/19/20 00:02 ABG pO2 59.0 mmHg (80.0-100.0) L 11/19/20 00:02 ABG HCO3 24.7 mmol/L (22-26) 11/19/20 00:02 ABG O2 Saturation 90.0 % (90-100) 11/19/20 00:02 ABG Base Excess 0.1 mmol/L (-2.0-2.0) 11/19/20 00:02 Mikhail Test Pos 11/19/20 00:02 A-a Gradient 42.0 mmHg 11/19/20 00:02 FiO2 21.0 11/19/20 00:02 Blood Gas Comments María well mts 11/19/20 00:02 Sodium 144 mmol/L (136-145) 11/19/20 23:34 Corrected Sodium 145 mmol/L (136-145) 11/19/20 23:34 Potassium 3.8 mmol/L (3.5-5.1) 11/19/20 23:34 Chloride 109 mmol/L (98-107) H 11/19/20 23:34 Carbon Dioxide 27.0 mmol/L (21-32) 11/19/20 23:34 BUN 22 mg/dL (7-18) H 11/19/20 23:34 Creatinine 1.89 mg/dL (0.55-1.02) H 11/19/20 23:34 Est GFR (MDRD) Af Amer 35 (>60) L 11/19/20 23:34 Est GFR (MDRD) Non-Af 29 (>60) L 11/19/20 23:34 Glucose 162 mg/dL (65-99) H 11/19/20 23:34 Calcium 9.1 mg/dL (8.5-10.1) 11/19/20 23:34 Corrected Calcium TNP 11/19/20 23:34 Total Bilirubin 0.80 mg/dL (0.2-1.0) 11/19/20 23:34 AST 14 Units/L (15-37) L 11/19/20 23:34 ALT 17 Units/L (12-78) 11/19/20 23:34 Alkaline Phosphatase 54 Units/L (46-116) 11/19/20 23:34 Creatine Kinase 44 Units/L (26-192) 11/19/20 23:34 CK-MB (CK-2) < 1.0 ng/mL (0-4.0) 11/19/20 23:34 CK/CKMB % Calc 2.3 % (<4) 11/19/20 23:34 Troponin I < 0.02 ng/mL (0-1.5) 11/19/20 23:34 B-Natriuretic Peptide 735 pg/mL (0-79) H* 11/19/20 23:34 Total Protein 7.9 g/dL (6.4-8.2) 11/19/20 23:34 Albumin 3.7 g/dL (3.4-5.0) 11/19/20 23:34 Globulin 4.2 g/dL (2.5-4.5) 11/19/20 23:34 Albumin/Globulin Ratio 0.9 Ratio (1.1-2.1) L 11/19/20 23:34 SARS-CoV-2 (PCR) Negative (NEGATIVE) 11/19/20 22:52 Influenza Type A (PCR) Negative (NEGATIVE) 11/19/20 22:52 Influenza Type B (PCR) Negative (NEGATIVE) 11/19/20 22:52 RSV (PCR) Negative (NEGATIVE) 11/19/20 22:52 Opioid Opioid Risk Tool Age (Kristian box if 16-45): No History of Preadolescent Sexual Abuse: No Total: 0 Total Score Risk Category: Low Risk Copyright: Maikel CRUM predicting aberrant behaviors
[2020-11-19 23:46] LABS: BASOPHILS # (AUTO) 0.1 X10^3/uL (0.0-0.1); BASOPHILS % (AUTO) 2.3 % (0.2-1.0); EOSINOPHILS # (AUTO) 0.1 x10^3/uL (0.0-0.2); EOSINOPHILS % (AUTO) 1.4 % (0.9-2.9); HEMATOCRIT 35.4 % (36.0-47.0); HEMOGLOBIN 11.5 g/dL (12.0-16.0); LYMPHOCYTES # (AUTO) 1.3 X10^3/uL (1.3-2.9); LYMPHOCYTES % (AUTO) 31.3 % (21.0-51.0); MEAN CORPUSCULAR HEMOGLOBIN 26.7 pg (27.0-34.0); MEAN CORPUSCULAR HGB CONC 32.5 g/dL (33.0-35.0); MEAN CORPUSCULAR VOLUME 82.1 fL (80.0-100.0); MEAN PLATELET VOLUME 10.4 fL (7.4-11.0); MONOCYTES # (AUTO) 0.3 x10^3/uL (0.3-0.8); MONOCYTES % (AUTO) 6.2 % (0.0-13.0); NEUTROPHILS # (AUTO) 2.5 x10^3/uL (2.2-4.8); NEUTROPHILS % (AUTO) 58.8 % (42.0-75.0); PLATELET COUNT 133 X10^3/uL (150.0-450.0); RED BLOOD COUNT 4.32 X10^6/uL (3.5-5.4); RED CELL DISTRIBUTION WIDTH 15.6 % (11.6-16.5); WHITE BLOOD COUNT 4.2 X10^3/uL (3.6-10.0)
--- NOTE | 2020-11-19 23:57 | RAD ---
EXAM: CHEST X-RAYHISTORY: Shortness of breath.TECHNIQUE: AP chest x-ray.COMPARISON: None.FINDINGS:There is aortic atherosclerosis. There is evidence for cardiomegaly. The pulmonary vascularity and interstitial markings are diffusely prominent, consistent with mild CHF or volume overload in the appropriate clinical setting; differential diagnosis includes (but is not limited to) mild bronchitis and interstitial pneumonia in the appropriate clinical setting.There is no gross focal lung consolidation, pleural effusion, or pneumothorax seen. The visualized bony structures are within normal limits.IMPRESSION:1. Findings consistent with mild CHF or volume overload in the appropriate clinical setting; DDX includes (but is not limited to) mild bronchitis and interstitial pneumonia in the appropriate clinical setting.2. Recommend clinical correlation and appropriate follow-up CXR evaluation to ensure interval clearance as clinically warranted.3. Consider follow-up noncontrast chest CT to rule out Covid pneumonia if clinically warranted.Electronically signed by: Mychal Malone (Nov 19, 2020 23:56:25)
[2020-11-20 00:06] LABS: ABG BASE EXCESS 0.1 mmol/L (-2.0-2.0); ABG HCO3 24.7 mmol/L (22-26)
[2020-11-20 00:07] LABS: ABG ALLEN TEST POS
[2020-11-20 00:14] LABS: ALANINE AMINOTRANSFERASE 17 Units/L (12-78); ALBUMIN 3.7 g/dL (3.4-5.0); ALKALINE PHOSPHATASE 54 Units/L (46-116); ASPARTATE AMINO TRANSFERASE 14 Units/L (15-37); BLOOD UREA NITROGEN 22 mg/dL (7-18); CALCIUM 9.1 mg/dL (8.5-10.1); CHLORIDE 109 mmol/L (98-107); CKMB % 2.3 % (<4); COR NA(FOR HYPERGLY) 145 mmol/L (136-145); CREATINE KINASE 44 Units/L (26-192); CREATINE KINASE MB < 1.0 ng/mL (0-4.0); CREATININE 1.89 mg/dL (0.55-1.02); SODIUM 144 mmol/L (136-145); TOTAL PROTEIN 7.9 g/dL (6.4-8.2); TROPONIN I < 0.02 ng/mL (0-1.5); eGFR NON BLACK RACES 29 (>60)
[2020-11-20] MEDS ORDERED: LASIX IVP ONE ×3 (00:47→18:41)
[2020-11-20] MEDS ORDERED: ROCEPHIN VIAL 1 GRAM 1 G in NS 100 ML IV + SPIKE MINIBAG* 100 ML IV ONE (00:48)
[2020-11-20] MEDS ORDERED: ROCEPHIN VIAL 1 GRAM ONE (02:29)
[2020-11-20] MEDS ORDERED: NS 100 ML IV + SPIKE MINIBAG* 100 ML IV ONE (02:29)
[2020-11-20] MEDS ORDERED: CATAPRES TAB 0.2 MG PO ONE (02:45)
[2020-11-20] MEDS ORDERED: CATAPRES TAB 0.2 MG ONE (02:49)
[2020-11-20] MEDS ORDERED: LASIX ONE (07:42)
[2020-11-20] MEDS ORDERED: K-DUR TAB 20 MEQ PO ONE (07:42)
[2020-11-20] MEDS ORDERED: ROCEPHIN 1 GRAM IV PREMIX 1 G/50 ML IV.SOLN. IV ONE (07:43)
[2020-11-20 07:50] LABS: CKMB % 1.9 % (<4); CREATINE KINASE 53 Units/L (26-192); CREATINE KINASE MB < 1.0 ng/mL (0-4.0); TROPONIN I < 0.02 ng/mL (0-1.5)
[2020-11-20] MEDS: ROCEPHIN 1 GRAM IV PREMIX 1 G/50 ML IV.SOLN. IV SCH ×2 (08:05→09:18)
[2020-11-20] MEDS: K-DUR TAB 20 MEQ PO SCH (08:05)
[2020-11-20] MEDS ORDERED: ELIQUIS ONE (08:37)
[2020-11-20] MEDS: ELIQUIS PO SCH ×2 (08:44→20:20)
[2020-11-20] MEDS ORDERED: HumuLIN R SC PRN (08:58)
[2020-11-20] MEDS ORDERED: LASIX PO SCH (09:00)
--- NOTE | 2020-11-20 11:21 | DR.H&P ---
H&P History & Physical for Day of: H&P Date: 11/20/20 Chief Complaint Chief Complaint: SOB and weakness Allergies Allergies Allergy/AdvReac Type Severity Reaction Status Date / Time strawberry Allergy Verified 04/27/19 02:14 History of Present Illness History of Present Illness: Ms Mcclellan is a 65y/o female with a PMH of Severe cardiomyopathy, Atrial fibrillation, COPD, HTN, CAD s/p PCI, HTN, HLD and DM presented with worsening shortness of breath. She also reports generalized weakness. She has a hx of CHF and CAD, used to see a paper reclaiming machine operator years ago. She has not seen any provider in a while. She has not taken her medications in a long time. She states she was told she does not need lasix in the past. She is not on home O2. She is currently on 2L NC and appears in no distress. Denies chest pain. She reports improvement in dyspnea. She does report leg edema. Her prev echoin 2018 showed EF 20%, mild LVH, moderate MR and mild TR. ER work up - Labs: trop x 2 (-) BNP 735 Hgb 11.5 Plt 133 BUN/Cr: 22/1.89 K: 3.8 - AB.41/39/59/24 on RA - COVID-19 and resp panel negative - CXR: Mild CHF and volume overload, also suggestive of bronchitis or i nterstitial pneumonia. Patient was given IV lasix and IV Rocephin. Patient is currently on 2L NC. Plan: admit to telemetry, strict I/Os, monitor UOP. Will switch to IV lasix 40 mg BID. Order Echo. Resume home medications, patient has not gotten most of them filled since 2019. Add SSI. Continue Eliquis. Continue IV Rocephin, nebs and IS. Trend cardiac enzymes, one more set later this afternoon. Repeat BMP. Wean O2 as tolerated to keep sats > 92%. Monitor AM labs and imaging. Past Medical History Past Medical History: CHF, Coronary Artery Disease, Diabetes, Dyslipidemia, Headaches, Hypertension and Sleep Apnea Past Surgical History Surgical History: Angioplasty/Stents, and REPORTER Surgery Family History Family Medical History: Diabetes Mellitus, [place], Coronary Artery Disease and Hypertension Social History Does patient currently use any type of tobacco product: No Have you used tobacco products in the last 12 months: No Type of Tobacco Use: None Does any household member use tobacco: No Alcohol Use: Occasionally Prescription drug monitoring program results: PDMP reviewed and no concerns identified Medications Home Medications: strawberry Allergy (Verified 04/27/19 02:14) CONTINUE taking the following medications apixaban [Eliquis] 5 mg PO BID 11/20/20 [History] aspirin 81 mg PO DAILY 11/20/20 [History] atorvastatin 40 mg PO HS 11/20/20 [History] glipizide 5 mg PO BID 11/20/20 [History] lisinopril 5 mg PO DAILY 11/20/20 [History] sacubitril-valsartan [Entresto] 1 tab PO BID 11/20/20 [History] Labs Result Diagrams: 11/19/20 23:34 11/19/20 23:34 Labs: Laboratory WBC 4.2 X10^3/uL (3.6-10.0) 11/19/20 23:34 RBC 4.32 X10^6/uL (3.5-5.4) 11/19/20 23:34 Hgb 11.5 g/dL (12.0-16.0) L 11/19/20 23:34 Hct 35.4 % (36.0-47.0) L 11/19/20 23:34 MCV 82.1 fL (80.0-100.0) 11/19/20 23:34 MCH 26.7 pg (27.0-34.0) L 11/19/20 23:34 MCHC 32.5 g/dL (33.0-35.0) L 11/19/20 23:34 RDW 15.6 % (11.6-16.5) 11/19/20 23:34 Plt Count 133 X10^3/uL (150.0-450.0) L 11/19/20 23:34 MPV 10.4 fL (7.4-11.0) 11/19/20 23:34 Neut % (Auto) 58.8 % (42.0-75.0) 11/19/20 23:34 Lymph % (Auto) 31.3 % (21.0-51.0) 11/19/20 23:34 [place] % (Auto) 6.2 % (0.0-13.0) 11/19/20 23:34 Eos % (Auto) 1.4 % (0.9-2.9) 11/19/20 23:34 Baso % (Auto) 2.3 % (0.2-1.0) H 11/19/20 23:34 Neut # (Auto) 2.5 x10^3/uL (2.2-4.8) 11/19/20 23:34 Lymph # (Auto) 1.3 X10^3/uL (1.3-2.9) 11/19/20 23:34 [place] # (Auto) 0.3 x10^3/uL (0.3-0.8) 11/19/20 23:34 Eos # (Auto) 0.1 x10^3/uL (0.0-0.2) 11/19/20 23:34 Baso # (Auto) 0.1 X10^3/uL (0.0-0.1) 11/19/20 23:34 Absolute Nucleated RBC 0.0 /100WBC 11/19/20 23:34 Sample Site Lra 11/19/20 00:02 ABG pH 7.410 (7.35-7.45) 11/19/20 00:02 ABG pCO2 39.0 mmHg (35.0-45.0) 11/19/20 00:02 ABG pO2 59.0 mmHg (80.0-100.0) L 11/19/20 00:02 ABG HCO3 24.7 mmol/L (22-26) 11/19/20 00:02 ABG O2 Saturation 90.0 % (90-100) 11/19/20 00:02 ABG Base Excess 0.1 mmol/L (-2.0-2.0) 11/19/20 00:02 Mikhail Test Pos 11/19/20 00:02 A-a Gradient 42.0 mmHg 11/19/20 00:02 FiO2 21.0 11/19/20 00:02 Blood Gas Comments María well mts 11/19/20 00:02 Sodium 144 mmol/L (136-145) 11/19/20 23:34 Corrected Sodium 145 mmol/L (136-145) 11/19/20 23:34 Potassium 3.8 mmol/L (3.5-5.1) 11/19/20 23:34 Chloride 109 mmol/L (98-107) H 11/19/20 23:34 Carbon Dioxide 27.0 mmol/L (21-32) 11/19/20 23:34 BUN 22 mg/dL (7-18) H 11/19/20 23:34 Creatinine 1.89 mg/dL (0.55-1.02) H 11/19/20 23:34 Est GFR (MDRD) Af Amer 35 (>60) L 11/19/20 23:34 Est GFR (MDRD) Non-Af 29 (>60) L 11/19/20 23:34 Glucose 162 mg/dL (65-99) H 11/19/20 23:34 Calcium 9.1 mg/dL (8.5-10.1) 11/19/20 23:34 Corrected Calcium TNP 11/19/20 23:34 Total Bilirubin 0.80 mg/dL (0.2-1.0) 11/19/20 23:34 AST 14 Units/L (15-37) L 11/19/20 23:34 ALT 17 Units/L (12-78) 11/19/20 23:34 Alkaline Phosphatase 54 Units/L (46-116) 11/19/20 23:34 Creatine Kinase 53 Units/L (26-192) 11/20/20 07:20 CK-MB (CK-2) < 1.0 ng/mL (0-4.0) 11/20/20 07:20 CK/CKMB % Calc 1.9 % (<4) 11/20/20 07:20 Troponin I < 0.02 ng/mL (0-1.5) 11/20/20 07:20 B-Natriuretic Peptide 735 pg/mL (0-79) H* 11/19/20 23:34 Total Protein 7.9 g/dL (6.4-8.2) 11/19/20 23:34 Albumin 3.7 g/dL (3.4-5.0) 11/19/20 23:34 Globulin 4.2 g/dL (2.5-4.5) 11/19/20 23:34 Albumin/Globulin Ratio 0.9 Ratio (1.1-2.1) L 11/19/20 23:34 SARS-CoV-2 (PCR) Negative (NEGATIVE) 11/19/20 22:52 Influenza Type A (PCR) Negative (NEGATIVE) 11/19/20 22:52 Influenza Type B (PCR) Negative (NEGATIVE) 11/19/20 22:52 RSV (PCR) Negative (NEGATIVE) 11/19/20 22:52 Review of Systems Constitutional: Weakness and Malaise Eyes: No Symptoms Reported ENT: No Symptoms Reported Respiratory: Cough, Shortness of Breath and SOB with Excertion Cardiovascular: Edema Gastrointestinal: No Symptoms Reported Genitourinary: No Symptoms Reported Musculoskeletal: No Symptoms Reported Physical Exam Vital Signs: Temperature 98.0 F Pulse Rate [Right Brachial] 87 Pulse Rate 112 Respiratory Rate 22 Blood Pressure [Right Arm] 119/67 Blood Pressure 134/87 O2 Sat by Pulse Oximetry 100 Oriented: Normal Eyes: Normal Ear: Normal Nose: Normal Throat: Normal Respiratory: Diminished Throughout Cardiovascular: Normal and Edema (trace LE edema ) Auscultation: Bowel Sounds: Normal Palpation: Normal Tenderness: Normal Skin: Normal Musculoskeletal: Normal Psychiatric: Normal Mood Description: Calm Affect: Normal Speech Pattern: Clear and Appropriate Assessment/Plan (1) Acute exacerbation of CHF (congestive heart failure): Qualifiers: Heart failure type: combined systolic and diastolic Qualified Code(s): I50.43 - Acute on chronic combined systolic (congestive) and diastolic (congestive) heart failure Status: Acute (2) Uncontrolled hypertension: Status: Acute (3) SOB (shortness of breath): Status: Acute (4) Hypoxia: Status: Acute (5) Hypertension: Qualifiers: Hypertension type: primary hypertension Qualified Code(s): I10 - Esse ntial (primary) hypertension Status: Chronic (6) Diabetes mellitus: Qualifiers: Chronic kidney disease stage: unspecified stage Diabetes mellitus complication detail: with chronic kidney disease Diabetes mellitus complication status: with kidney complications Diabetes mellitus long line teamster insulin use: unspecified long line teamster insulin use status Diabetes mellitus type: type 2 Qualified Code(s): E11.22 - Type 2 diabetes mellitus with diabetic chronic kidney disease Status: Chronic (7) CAD (coronary artery disease): Qualifiers: Associated angina: unspecified whether angina present Coronary Disease- Associated Artery/Lesion type: unspecified vessel or lesion type [place] vs. transplanted heart: [place] heart Qualified Code(s): I25.10 - Atherosclerotic heart disease of [place] coronary artery without angina pectoris Status: Chronic (8) Cardiomyopathy: Qualifiers: Cardiomyopathy type: unspecified Qualified Code(s): I42.9 - Cardiomyopathy, unspecified Status: Acute (9) Atrial fibrillation: Qualifiers: Atrial fibrillation type: unspecified chronic Qualified Code(s): I48.20 - Chronic atrial fibrillation, unspecified Status: Acute Review H&P Reviewed: Yes Patient was examined?: Yes
[2020-11-20] MEDS ORDERED: ALDACTONE TAB 25 MG PO SCH (12:00)
[2020-11-20 14:27] LABS: CARBON DIOXIDE 27.7 mmol/L (21-32); CREATININE 2.01 mg/dL (0.55-1.02)
[2020-11-20 14:38] LABS: CKMB % 2.2 % (<4); CREATINE KINASE 45 Units/L (26-192); CREATINE KINASE MB < 1.0 ng/mL (0-4.0); TROPONIN I < 0.02 ng/mL (0-1.5)
[2020-11-20] MEDS: LASIX IVP SCH (18:47)
[2020-11-20] MEDS ORDERED: ENTRESTO 24/26 MG TAB PO ONE (19:35)
[2020-11-20] MEDS ORDERED: LIPITOR TAB 40 MG ONE (19:35)
[2020-11-20] MEDS: LIPITOR TAB 40 MG PO SCH (20:19)
[2020-11-20] MEDS ORDERED: ENTRESTO 24/26 MG TAB PO SCH (21:00)
[2020-11-21 05:22] LABS: BASOPHILS % (AUTO) 0.3 % (0.2-1.0); EOSINOPHILS # (AUTO) 0.1 x10^3/uL (0.0-0.2); EOSINOPHILS % (AUTO) 1.9 % (0.9-2.9); HEMATOCRIT 36.6 % (36.0-47.0); HEMOGLOBIN 12.1 g/dL (12.0-16.0); LYMPHOCYTES # (AUTO) 1.4 X10^3/uL (1.3-2.9); LYMPHOCYTES % (AUTO) 34.6 % (21.0-51.0); MEAN CORPUSCULAR HEMOGLOBIN 26.8 pg (27.0-34.0); MEAN PLATELET VOLUME 10.8 fL (7.4-11.0); MONOCYTES # (AUTO) 0.3 x10^3/uL (0.3-0.8); MONOCYTES % (AUTO) 7.1 % (0.0-13.0); NEUTROPHILS # (AUTO) 2.3 x10^3/uL (2.2-4.8); NEUTROPHILS % (AUTO) 56.1 % (42.0-75.0); PLATELET COUNT 130 X10^3/uL (150.0-450.0); RED BLOOD COUNT 4.51 X10^6/uL (3.5-5.4); RED CELL DISTRIBUTION WIDTH 15.7 % (11.6-16.5)
[2020-11-21 05:45] LABS: ALANINE AMINOTRANSFERASE 20 Units/L (12-78); ALBUMIN 3.8 g/dL (3.4-5.0); ALKALINE PHOSPHATASE 55 Units/L (46-116); ASPARTATE AMINO TRANSFERASE 14 Units/L (15-37); BLOOD UREA NITROGEN 27 mg/dL (7-18); CALCIUM 9.2 mg/dL (8.5-10.1); CARBON DIOXIDE 29.3 mmol/L (21-32); CHLORIDE 104 mmol/L (98-107); COR NA(FOR HYPERGLY) 142 mmol/L (136-145); CREATININE 1.82 mg/dL (0.55-1.02); MAGNESIUM 2.5 mg/dL (1.7-2.9); SODIUM 141 mmol/L (136-145); TOTAL PROTEIN 8.2 g/dL (6.4-8.2); eGFR NON BLACK RACES 30 (>60)
[2020-11-21 05:54] LABS: GIANT PLATELET FEW; PLATELET MORPHOLOGY COMMENT ABNORMAL (NORMAL)
--- NOTE | 2020-11-21 06:22 | RAD ---
HISTORYHypoxiaSTUDYChest AP [id number] remains enlarged. No congestive heart failure is noted. Aor ta is calcified. Lungs are well inflated and free of acute infiltrates. No pleural effusions are iden tified. Bony thorax is unremarkable.IMPRESSIONCardiomegaly without congestive heart failureNo definit e infiltratesElectronically signed by: ADAN GARRETT (Nov 21, 2020 06:19:45)
[2020-11-21] MEDS ORDERED: ROCEPHIN 1 GRAM IV PREMIX 1 G/50 ML IV.SOLN. IV ONE (07:53)
[2020-11-21] MEDS ORDERED: K-DUR TAB 20 MEQ PO ONE (07:53)
[2020-11-21] MEDS ORDERED: ELIQUIS ONE (07:53)
[2020-11-21] MEDS ORDERED: LASIX ONE (07:53)
[2020-11-21] MEDS ORDERED: ASPIRIN 81 MG CHEWTAB ONE (07:53)
[2020-11-21] MEDS ORDERED: LASIX IVP ONE (08:33)
[2020-11-21] MEDS: LASIX IVP SCH ×2 (08:37→17:07)
[2020-11-21] MEDS: ASPIRIN EC 81 MG PO SCH (08:37)
[2020-11-21] MEDS: ELIQUIS PO SCH ×2 (08:37→21:40)
[2020-11-21] MEDS: K-DUR TAB 20 MEQ PO SCH (08:38)
[2020-11-21 09:59] LABS: HEMOGLOBIN A1C 6.9 %
[2020-11-21 10:09] LABS: CHOL/HDL RATIO 9.5 (0.0-5.0)
--- NOTE | 2020-11-21 13:09 | PCM.PROG ---
Progress Note Progress Note for Day of Date of Exam: 11/21/20 Subjective Subjective: Patient seen at bedside, no events overnight. Patient states she feels better today. She is still on 2L NC O2. Denies chest pain. She still has some dyspnea on exertion but not like it was. She has been ambulating to the bathroom. She reports not being compliant with her medications and has not refilled them in a couple years. Labs: WBC 4 Hgb 12.1 BUN/Cr: 27/1.82 Glucose 138 K: 3.9 Trop x 3 (-) CXR: cardiomegaly, no CHF, no infiltrate or effusion seen Echo: sever decrease in global wall motion. Grade 3 restrictive diastolic dysfunction. Moderate to Severe MR and moderate-severe TR. Plan: continue IV lasix 40 mg BID, continue telemetry, strict I/Os. Consult Cardiology for further recommendations and medication optimization. Continue asa, statin, entresto and Eliquis for now. Resume glipizide and continue SSI. RT eval for home O2. PT/OT as tolerated. Monitor AM labs and imaging. Discussed medication compliance and following up with cardiology outpatient. Past Medical Family Social History Past Med/Fam/Surg Hx: No changes since H&P Allergies: Allergies strawberry Allergy (Verified 04/27/19 02:14) Review of Systems ROS: No change since H&P Vital Signs and I&O's Vital Signs: Temperature 98.3 F Pulse Rate [Right Brachial] 78 Pulse Rate 112 Respiratory Rate 17 Blood Pressure [Right Arm] 120/71 Blood Pressure 134/87 O2 Sat by Pulse Oximetry 98 Intake and Output: Intake & Output 11/18/20 11/19/20 11/20/20 11/21/20 23:59 23:59 23:59 23:59 Intake Total 1390 / 1390 490 / 490 Output Total Balance 1389 / 1389 490 / 490 Physical Exam Oriented: Normal Eyes: Normal Ear: Normal Nose: Normal Throat: Normal Respiratory: Generalized and Diminished Cardiovascular: Normal and Edema (trace LE edema ) Auscultation: Bowel Sounds: Normal Tenderness: Normal Skin: Normal Musculoskeletal: Normal Psychiatric: Normal Mood Description: Calm Affect: Normal Speech Pattern: Clear Laboratory and Diagnostics Result Diagrams: 11/21/20 04:00 11/21/20 04:00 Labs: Laboratory WBC 4.0 X10^3/uL (3.6-10.0) 11/21/20 04:00 RBC 4.51 X10^6/uL (3.5-5.4) 11/21/20 04:00 Hgb 12.1 g/dL (12.0-16.0) 11/21/20 04:00 Hct 36.6 % (36.0-47.0) 11/21/20 04:00 MCV 81.0 fL (80.0-100.0) 11/21/20 04:00 MCH 26.8 pg (27.0-34.0) L 11/21/20 04:00 MCHC 33.0 g/dL (33.0-35.0) 11/21/20 04:00 RDW 15.7 % (11.6-16.5) 11/21/20 04:00 Plt Count 130 X10^3/uL (150.0-450.0) L 11/21/20 04:00 Plt Count Comment Decreased (ADEQUATE) A 11/21/20 04:00 MPV 10.8 fL (7.4-11.0) 11/21/20 04:00 Neut % (Auto) 56.1 % (42.0-75.0) 11/21/20 04:00 Lymph % (Auto) 34.6 % (21.0-51.0) 11/21/20 04:00 [place] % (Auto) 7.1 % (0.0-13.0) 11/21/20 04:00 Eos % (Auto) 1.9 % (0.9-2.9) 11/21/20 04:00 Baso % (Auto) 0.3 % (0.2-1.0) 11/21/20 04:00 Neut # (Auto) 2.3 x10^3/uL (2.2-4.8) 11/21/20 04:00 Lymph # (Auto) 1.4 X10^3/uL (1.3-2.9) 11/21/20 04:00 [place] # (Auto) 0.3 x10^3/uL (0.3-0.8) 11/21/20 04:00 Eos # (Auto) 0.1 x10^3/uL (0.0-0.2) 11/21/20 04:00 Baso # (Auto) 0.0 X10^3/uL (0.0-0.1) 11/21/20 04:00 Absolute Nucleated RBC 0.1 /100WBC 11/21/20 04:00 Giant Platelets Few 11/21/20 04:00 Plt Morphology Comment Abnormal (NORMAL) A 11/21/20 04:00 RBC Morphology Normal (NORMAL) 11/21/20 04:00 Sample Site Lra 11/19/20 00:02 ABG pH 7.410 (7.35-7.45) 11/19/20 00:02 ABG pCO2 39.0 mmHg (35.0-45.0) 11/19/20 00:02 ABG pO2 59.0 mmHg (80.0-100.0) L 11/19/20 00:02 ABG HCO3 24.7 mmol/L (22-26) 11/19/20 00:02 ABG O2 Saturation 90.0 % (90-100) 11/19/20 00:02 ABG Base Excess 0.1 mmol/L (-2.0-2.0) 11/19/20 00:02 Mikhail Test Pos 11/19/20 00:02 A-a Gradient 42.0 mmHg 11/19/20 00:02 FiO2 21.0 11/19/20 00:02 Blood Gas Comments María well mts 11/19/20 00:02 Sodium 141 mmol/L (136-145) 11/21/20 04:00 Corrected Sodium 142 mmol/L (136-145) 11/21/20 04:00 Potassium 3.9 mmol/L (3.5-5.1) 11/21/20 04:00 Chloride 104 mmol/L (98-107) 11/21/20 04:00 Carbon Dioxide 29.3 mmol/L (21-32) 11/21/20 04:00 BUN 27 mg/dL (7-18) H 11/21/20 04:00 Creatinine 1.82 mg/dL (0.55-1.02) H 11/21/20 04:00 Est GFR (MDRD) Af Amer 36 (>60) L 11/21/20 04:00 Est GFR (MDRD) Non-Af 30 (>60) L 11/21/20 04:00 Glucose 152 mg/dL (65-99) H 11/21/20 04:00 POC Glucose (mg/dL) 172 mg/dL (65-99) H 11/21/20 11:18 Hemoglobin A1c 6.9 % 11/21/20 04:00 Calcium 9.2 mg/dL (8.5-10.1) 11/21/20 04:00 Corrected Calcium TNP 11/21/20 04:00 Magnesium 2.5 mg/dL (1.7-2.9) 11/21/20 04:00 Total Bilirubin 0.80 mg/dL (0.2-1.0) 11/21/20 04:00 AST 14 Units/L (15-37) L 11/21/20 04:00 ALT 20 Units/L (12-78) 11/21/20 04:00 Alkaline Phosphatase 55 Units/L (46-116) 11/21/20 04:00 Creatine Kinase 45 Units/L (26-192) 11/20/20 14:02 CK-MB (CK-2) < 1.0 ng/mL (0-4.0) 11/20/20 14:02 CK/CKMB % Calc 2.2 % (<4) 11/20/20 14:02 Troponin I < 0.02 ng/mL (0-1.5) 11/20/20 14:02 B-Natriuretic Peptide 735 pg/mL (0-79) H* 11/19/20 23:34 Total Protein 8.2 g/dL (6.4-8.2) 11/21/20 04:00 Albumin 3.8 g/dL (3.4-5.0) 11/21/20 04:00 Globulin 4.4 g/dL (2.5-4.5) 11/21/20 04:00 Albumin/Globulin Ratio 0.9 Ratio (1.1-2.1) L 11/21/20 04:00 Triglycerides 151 mg/dL (0-150) H 11/21/20 04:00 Cholesterol 303 mg/dL (0-200) H 11/21/20 04:00 LDL Cholesterol, Calc 241 mg/dL (0-100) H 11/21/20 04:00 HDL Cholesterol 32 mg/dL (40-60) L 11/21/20 04:00 Cholesterol/HDL Ratio 9.5 (0.0-5.0) H 11/21/20 04:00 SARS-CoV-2 (PCR) Negative (NEGATIVE) 11/19/20 22:52 Influenza Type A (PCR) Negative (NEGATIVE) 11/19/20 22:52 Influenza Type B (PCR) Negative (NEGATIVE) 11/19/20 22:52 RSV (PCR) Negative (NEGATIVE) 11/19/20 22:52 Plan (1) Acute exacerbation of CHF (congestive heart failure): Status: Acute Qualifiers: Heart failure type: combined systolic and diastolic Qualified Code(s): I50.43 - Acute on chronic combined systolic (congestive) and diastolic (congestive) heart failure (2) Uncontrolled hypertension: Status: Acute (3) SOB (shortness of breath): Status: Acute (4) Hypoxia: Status: Acute (5) Hypertension: Status: Chronic Qualifiers: Hypertension type: primary hypertension Qualified Code(s): I10 - Essential (primary) hypertension (6) Diabetes mellitus: Status: Chronic Qualifiers: Chronic kidney disease stage: unspecified stage Diabetes mellitus complication detail: with chronic kidney disease Diabetes mellitus complication status: with kidney complications Diabetes mellitus petroleum terminal plant operator insulin use: unspecified petroleum terminal plant operator insulin use status Diabetes mellitus type: type 2 Qualified Code(s): E11.22 - Type 2 diabetes mellitus with diabetic chronic kidney disease (7) CAD (coronary artery disease): Status: Chronic Qualifiers: Associated angina: unspecified whether angina present Coronary Disease- Associated Artery/Lesion type: unspecified vessel or lesion type [place] vs. transplanted heart: [place] heart Qualified Code(s): I25.10 - Atherosclerotic heart disease of [place] coronary artery without angina pectoris (8) Cardiomyopathy: Status: Acute Qualifiers: Cardiomyopathy type: unspecified Qualified Code(s): I42.9 - Cardiomyopathy, unspecified (9) Atrial fibrillation: Status: Acute Qualifiers: Atrial fibrillation type: unspecified chronic Qualified Code(s): I48.20 - Chronic atrial fibrillation, unspecified
[2020-11-21] MEDS ORDERED: SNACK - Diabetic Appropriate PO SCH (20:00)
[2020-11-21] MEDS: LIPITOR TAB 40 MG PO SCH (21:39)
[2020-11-21] MEDS: ISOSORBIDE DINITRATE PO SCH (21:39)
[2020-11-21] MEDS: GLUCOTROL PO SCH (21:39)
[2020-11-21] MEDS: COREG TAB 6.25 MG PO SCH (21:39)
[2020-11-21] MEDS: APRESOLINE TAB 25 MG PO SCH (21:41)
[2020-11-22 07:55] LABS: BASOPHILS % (AUTO) 0.8 % (0.2-1.0); EOSINOPHILS # (AUTO) 0.1 x10^3/uL (0.0-0.2); HEMATOCRIT 35.5 % (36.0-47.0); HEMOGLOBIN 11.4 g/dL (12.0-16.0); LYMPHOCYTES # (AUTO) 1.2 X10^3/uL (1.3-2.9); LYMPHOCYTES % (AUTO) 38.2 % (21.0-51.0); MEAN CORPUSCULAR HEMOGLOBIN 26.7 pg (27.0-34.0); MEAN CORPUSCULAR HGB CONC 32.1 g/dL (33.0-35.0); MEAN PLATELET VOLUME 10.3 fL (7.4-11.0); MONOCYTES # (AUTO) 0.3 x10^3/uL (0.3-0.8); MONOCYTES % (AUTO) 7.7 % (0.0-13.0); NEUTROPHILS # (AUTO) 1.7 x10^3/uL (2.2-4.8); NEUTROPHILS % (AUTO) 51.3 % (42.0-75.0); PLATELET COUNT 128 X10^3/uL (150.0-450.0); RED BLOOD COUNT 4.28 X10^6/uL (3.5-5.4); RED CELL DISTRIBUTION WIDTH 15.4 % (11.6-16.5); WHITE BLOOD COUNT 3.3 X10^3/uL (3.6-10.0)
[2020-11-22 08:11] LABS: BLOOD UREA NITROGEN 34 mg/dL (7-18); CALCIUM 8.5 mg/dL (8.5-10.1); CHLORIDE 106 mmol/L (98-107); CREATININE 2.01 mg/dL (0.55-1.02); SODIUM 141 mmol/L (136-145); eGFR NON BLACK RACES 27 (>60)
[2020-11-22 08:22] LABS: GIANT PLATELET RARE; PLATELET MORPHOLOGY COMMENT ABNORMAL (NORMAL)
[2020-11-22] MEDS: LASIX IVP SCH (10:00)
[2020-11-22] MEDS: APRESOLINE TAB 25 MG PO SCH (10:00)
[2020-11-22] MEDS: ASPIRIN EC 81 MG PO SCH (10:00)
[2020-11-22] MEDS: K-DUR TAB 20 MEQ PO SCH (10:00)
[2020-11-22] MEDS: COREG TAB 6.25 MG PO SCH (10:00)
[2020-11-22] MEDS: ISOSORBIDE DINITRATE PO SCH (10:00)
[2020-11-22] MEDS: GLUCOTROL PO SCH (10:00)
--- NOTE | 2020-11-22 11:09 | W.DIS.FURT ---
Summary of Discharge Admission Diagnosis Vital Signs: Vital Signs (72 hours) 11/19/20 22:22 11/19/20 23:00 11/19/20 23:30 Temperature 97.0 F L Pulse Rate 112 H Pulse Rate [Right Brachial] 119 H 98 H Respiratory Rate 28 H 22 22 Blood Pressure 134/87 Blood Pressure [Right Arm] 175/98 150/87 O2 Sat by Pulse Oximetry 93 L 84 L 89 L 11/20/20 00:00 11/20/20 00:30 11/20/20 01:00 Temperature Pulse Rate Pulse Rate [Right Brachial] 97 H 98 H 104 H Respiratory Rate 22 22 20 Blood Pressure Blood Pressure [Right Arm] 143/86 129/83 166/96 O2 Sat by Pulse Oximetry 94 L 91 L 90 L 11/20/20 02:00 11/20/20 03:00 11/20/20 04:00 Temperature Pulse Rate Pulse Rate [Right Brachial] 98 H 94 H 84 Respiratory Rate 20 20 20 Blood Pressure Blood Pressure [Right Arm] 151/85 122/67 109/55 O2 Sat by Pulse Oximetry 92 L 94 L 96 11/20/20 05:00 11/20/20 06:00 11/20/20 08:00 Temperature 98.0 F Pulse Rate Pulse Rate [Right Brachial] 88 92 H 87 Respiratory Rate 20 20 22 Blood Pressure Blood Pressure [Right Arm] 110/78 122/79 119/67 O2 Sat by Pulse Oximetry 96 100 11/20/20 12:00 11/20/20 16:00 11/20/20 19:06 Temperature 97.9 F 98.0 F 98.6 F Pulse Rate Pulse Rate [Right Brachial] 81 82 84 Respiratory Rate 17 17 20 Blood Pressure Blood Pressure [Right Arm] 122/81 139/93 127/81 O2 Sat by Pulse Oximetry 92 L 98 84 L 11/20/20 20:00 11/21/20 00:00 11/21/20 04:00 Temperature 98.3 F 98.4 F 98.3 F Pulse Rate Pulse Rate [Right Brachial] 92 H 76 79 Respiratory Rate 20 20 18 Blood Pressure Blood Pressure [Right Arm] 136/93 149/97 160/108 O2 Sat by Pulse Oximetry 100 100 100 11/21/20 08:00 11/21/20 11:06 11/21/20 12:00 Temperature 98.3 F 98.3 F 98.2 F Pulse Rate Pulse Rate [Right Brachial] 78 80 Respiratory Rate 17 17 20 Blood Pressure 134/87 Blood Pressure [Right Arm] 120/71 123/76 O2 Sat by Pulse Oximetry 98 98 90 L 11/21/20 16:00 11/21/20 20:00 11/22/20 00:00 Temperature 97.9 F 97.9 F 97.7 F Pulse Rate Pulse Rate [Right Brachial] 74 73 88 Respiratory Rate 20 18 20 Blood Pressure Blood Pressure [Right Arm] 130/83 124/68 107/60 O2 Sat by Pulse Oximetry 98 95 97 11/22/20 04:00 Temperature 97.6 F Pulse Rate Pulse Rate [Right Brachial] 73 Respiratory Rate 18 Blood Pressure Blood Pressure [Right Arm] 113/69 O2 Sat by Pulse Oximetry 96 Labs: Laboratory Last Values WBC 3.3 X10^3/uL (3.6-10.0) L 11/22/20 07:32 RBC 4.28 X10^6/uL (3.5-5.4) 11/22/20 07:32 Hgb 11.4 g/dL (12.0-16.0) L 11/22/20 07:32 Hct 35.5 % (36.0-47.0) L 11/22/20 07:32 MCV 83.0 fL (80.0-100.0) 11/22/20 07:32 MCH 26.7 pg (27.0-34.0) L 11/22/20 07:32 MCHC 32.1 g/dL (33.0-35.0) L 11/22/20 07:32 RDW 15.4 % (11.6-16.5) 11/22/20 07:32 Plt Count 128 X10^3/uL (150.0-450.0) L 11/22/20 07:32 Plt Count Comment Decreased (ADEQUATE) A 11/22/20 07:32 MPV 10.3 fL (7.4-11.0) 11/22/20 07:32 Neut % (Auto) 51.3 % (42.0-75.0) 11/22/20 07:32 Lymph % (Auto) 38.2 % (21.0-51.0) 11/22/20 07:32 [place] % (Auto) 7.7 % (0.0-13.0) 11/22/20 07: Eos % (Auto) 2.0 % (0.9-2.9) 11/22/20 07:32 Baso % (Auto) 0.8 % (0.2-1.0) 11/22/20 07:32 Neut # (Auto) 1.7 x10^3/uL (2.2-4.8) L 11/22/20 07:32 Lymph # (Auto) 1.2 X10^3/uL (1.3-2.9) L 11/22/20 07:32 [place] # (Auto) 0.3 x10^3/uL (0.3-0.8) 11/22/20 07:32 Eos # (Auto) 0.1 x10^3/uL (0.0-0.2) 11/22/20 07:32 Baso # (Auto) 0.0 X10^3/uL (0.0-0.1) 11/22/20 07:32 Absolute Nucleated RBC 0.0 /100WBC 11/22/20 07:32 Giant Platelets Rare 11/22/20 07:32 Plt Morphology Comment Abnormal (NORMAL) A 11/22/20 07:32 RBC Morphology Normal (NORMAL) 11/22/20 07:32 Sample Site Lra 11/19/20 00:02 ABG pH 7.410 (7.35-7.45) 11/19/20 00:02 ABG pCO2 39.0 mmHg (35.0-45.0) 11/19/20 00:02 ABG pO2 59.0 mmHg (80.0-100.0) L 11/19/20 00:02 ABG HCO3 24.7 mmol/L (22-26) 11/19/20 00:02 ABG O2 Saturation 90.0 % (90-100) 11/19/20 00:02 ABG Base Excess 0.1 mmol/L (-2.0-2.0) 11/19/20 00:02 Mikhail Test Pos 11/19/20 00:02 A-a Gradient 42.0 mmHg 11/19/20 00:02 FiO2 21.0 11/19/20 00:02 Blood Gas Comments María well mts 11/19/20 00:02 Sodium 141 mmol/L (136-145) 11/22/20 07:32 Corrected Sodium TNP 11/22/20 07:32 Potassium 4.0 mmol/L (3.5-5.1) 11/22/20 07:32 Chloride 106 mmol/L (98-107) 11/22/20 07:32 Carbon Dioxide 25.0 mmol/L (21-32) 11/22/20 07:32 BUN 34 mg/dL (7-18) H 11/22/20 07:32 Creatinine 2.01 mg/dL (0.55-1.02) H 11/22/20 07:32 Est GFR (MDRD) Af Amer 32 (>60) L 11/22/20 07:32 Est GFR (MDRD) Non-Af 27 (>60) L 11/22/20 07:32 Glucose 98 mg/dL (65-99) 11/22/20 07:32 POC Glucose (mg/dL) 116 mg/dL (65-99) H 11/22/20 05:55 Hemoglobin A1c 6.9 % 11/21/20 04:00 Calcium 8.5 mg/dL (8.5-10.1) 11/22/20 07:32 Corrected Calcium TNP 11/21/20 04:00 Magnesium 2.5 mg/dL (1.7-2.9) 11/21/20 04:00 Total Bilirubin 0.80 mg/dL (0.2-1.0) 11/21/20 04:00 AST 14 Units/L (15-37) L 11/21/20 04:00 ALT 20 Units/L (12-78) 11/21/20 04:00 Alkaline Phosphatase 55 Units/L (46-116) 11/21/20 04:00 Creatine Kinase 45 Units/L (26-192) 11/20/20 14:02 CK-MB (CK-2) < 1.0 ng/mL (0-4.0) 11/20/20 14:02 CK/CKMB % Calc 2.2 % (<4) 11/20/20 14:02 Troponin I < 0.02 ng/mL (0-1.5) 11/20/20 14:02 B-Natriuretic Peptide 735 pg/mL (0-79) H* 11/19/20 23:34 Total Protein 8.2 g/dL (6.4-8.2) 11/21/20 04:00 Albumin 3.8 g/dL (3.4-5.0) 11/21/20 04:00 Globulin 4.4 g/dL (2.5-4.5) 11/21/20 04:00 Albumin/Globulin Ratio 0.9 Ratio (1.1-2.1) L 11/21/20 04:00 Triglycerides 151 mg/dL (0-150) H 11/21/20 04:00 Cholesterol 303 mg/dL (0-200) H 11/21/20 04:00 LDL Cholesterol, Calc 241 mg/dL (0-100) H 11/21/20 04:00 HDL Cholesterol 32 mg/dL (40-60) L 11/21/20 04:00 Cholesterol/HDL Ratio 9.5 (0.0-5.0) H 11/21/20 04:00 SARS-CoV-2 (PCR) Negative (NEGATIVE) 11/19/20 22:52 Influenza Type A (PCR) Negative (NEGATIVE) 11/19/20 22:52 Influenza Type B (PCR) Negative (NEGATIVE) 11/19/20 22:52 RSV (PCR) Negative (NEGATIVE) 11/19/20 22:52 Reason For Visit: CHF, SOB WITH HYPOXIA AND UNCONTROL HYPERTENSION Discharge Diagnosis All Active Problems (Updated 11/20/20 @ 13:39 by Lizet Key) Atrial fibrillation (Acute) Cardiomyopathy (Acute) Acute exacerbation of CHF (congestive heart failure) (Acute) Uncontrolled hypertension (Acute) SOB (shortness of breath) (Acute) Hypoxia (Acute) Hypertension (Chronic) Diabetes (Chronic) Diabetes mellitus (Chronic) Congestive heart failure (Chronic) Cardiomegaly (Chronic) CAD (coronary artery disease) (Chronic) Chronic kidney disease (CKD) (Chronic) Plan of Treatment: Continue with present treatment and follow up plan. Pt is to keep follow up appointment as instructed and take medications as ordered. Discharge Medications Discharge Medications: strawberry Allergy (Verified 04/27/19 02:14) CONTINUE taking the following medications lisinopril 5 mg PO DAILY 11/20/20 [History] sacubitril-valsartan [Entresto] 1 tab PO BID 11/20/20 [History] New Prescriptions Eliquis 5 mg PO BID 30 Days #60 tab 11/22/20 [Rx] aspirin 81 mg PO DAILY 30 Days #30 tab 11/22/20 [Rx] atorvastatin 40 mg PO HS 30 Days #30 tab 11/22/20 [Rx] carvedilol 6.25 mg PO BID 30 Days #60 tab 11/22/20 [Rx] furosemide 40 mg PO DAILY 30 Days #30 tab 11/22/20 [Rx] glipizide 5 mg PO BID 30 Days #60 tab 11/22/20 [Rx] hydralazine 37.5 mg PO BID 30 Days #90 tab 11/22/20 [Rx] isosorbide dinitrate 20 mg PO BID 30 Days #60 tab 11/22/20 [Rx] Discharge Plan Discharge Plan Condition: Stable Health Concerns: Post Hospitalization: new medications and changes needed to prevent readmission or further decline. Pt educated and given instructions on all concerns. Plan of Treatment: Continue with present treatment and follow up plan. Pt is to keep follow up appointment as instructed and take medications as ordered. Prescription drug monitoring program results: PDMP reviewed and no concerns identified Prescriptions: New hydralazine 25 mg Tablet 37.5 mg PO BID 30 Days Qty: 90 RF: 0 carvedilol 6.25 mg Tablet 6.25 mg PO BID 30 Days Qty: 60 RF: 0 isosorbide dinitrate 20 mg Tablet 20 mg PO BID 30 Days Qty: 60 RF: 0 furosemide 40 mg tablet 40 mg PO DAILY 30 Days Qty: 30 RF: 0 Continued atorvastatin 40 mg Tablet 40 mg PO HS 30 Days Qty: 30 RF: 0 aspirin 81 mg Tablet,Delayed Release (Dr/Ec) 81 mg PO DAILY 30 Days Qty: 30 RF: 0 Eliquis 5 mg Tablet 5 mg PO BID 30 Days Qty: 60 RF: 0 glipizide 5 mg Tablet 5 mg PO BID 30 Days Qty: 60 RF: 0 Discontinued nitroglycerin 0.4 mg/hr Patch 24 Hour 1 patch TRANSDERMAL QDAY RF: 0 metformin 500 mg tablet 500 mg PO BID RF: 0 clonidine HCl 0.1 mg tablet 0.1 mg PO TID Qty: 30 RF: 0 spironolactone 25 mg Tablet 25 mg PO DAILY Qty: 30 RF: 3 lisinopril 5 mg Tablet 5 mg PO DAILY RF: 0 Entresto 24-26 mg Tablet 1 tab PO BID RF: 0 Orders to Discharge Patient Discharge Orders: Discharge (Routine); Ordered 11/22/20 Ordered By: Lizet Key Follow ups/Referrals Follow ups/Referrals: Tra Harper [STAFF PHYSICIAN] - 2 WEEKS (hospital follow up for CHF and severe cardiomyopathy ) Lizet Key [STAFF PHYSICIAN] - 1 WEEK
[2020-11-22] MEDS: ELIQUIS PO SCH (11:53)
[2020-11-22 15:54] VITALS: BP 120/71
== END 2020-11-22 15:55 | disposition home or self-care (01) | DRG 291 ==
LOC: ER 22:21 → OBS 11-20 06:03 → MED/SURG 11-21 11:52
PROVIDERS: ADMIT Family Medicine; ATTEND Family Medicine
DX: E11.65 Type 2 diabetes mellitus with hyperglycemia; I13.0 Hypertensive heart and chronic kidney disease with heart failure and stage 1 through stage 4 chronic kidney disease, or unspecified chronic kidney disease; Z20.822 Contact with and (suspected) exposure to COVID-19; E78.2 Mixed hyperlipidemia; R09.02 Hypoxemia; E11.22 Type 2 diabetes mellitus with diabetic chronic kidney disease; N18.9 Chronic kidney disease, unspecified; I48.20 Chronic atrial fibrillation, unspecified; I25.10 Atherosclerotic heart disease of native coronary artery without angina pectoris; J44.9 Chronic obstructive pulmonary disease, unspecified; R06.02 Shortness of breath; R94.31 Abnormal electrocardiogram [ECG] [EKG]; I50.43 Acute on chronic combined systolic (congestive) and diastolic (congestive) heart failure